=== PATIENT | female | born 1950 | race Caucasian/White ===

== ENCOUNTER 2016-06-04 07:52 | Day surgery (SDC) | payer OTHER, BC ==
[~2016-06-04] VITALS: Ht 162.6 cm; Wt 92.5 kg
[~2016-06-04 07:52] MED LIST: AMIO200T4 PO; ASPI81TA85 PO; CALC667C PO; GLIP-197 PO; METO1TAB54 PO; METO25TA3 PO; MIDO5TAB PO; MULT-190 PO; MULT-506 PO; WARF1TAB PO; WARF5TAB90 PO
--- NOTE | 2016-06-04 08:00 | History and Physical ---
History & Physical Date of Service Jun 04, 2016. History & Physical CC: End Stage renal disease with functioning fistula HPI: Mrs. Ramos she is a 68-fic[age]-rbe female with end-stage renal disease on dialysis who had a permanent left wrist av fistula done in April. It is functioning well at this time. She does have a history of heart disease. She is on dialysis with a_ right upper extremity PermCath. ALLERGIES: None known. MEDICATIONS: None known. MEDICATIONS: Reviewed, see med rec. PAST MEDICAL HISTORY: 1. Positive for coronary artery disease 2. End-stage renal disease. FAMILY HISTORY: Noncontributory. SOCIAL HISTORY: She does not smoke. She does not drink. REVIEW OF SYSTEMS: Ten systems were reviewed and no significant pertinent positive findings were elicited. PHYSICAL EXAMINATION: The patient is awake, oriented x3. She is morbidly obese. Blood pressure 132/84 on the left, 136/80 on the right. Head and neck within normal limits. No carotid bruits. Lungs are clear. Heart, regular rhythm. Abdominal exam is benign. Vascular exam reveals radials and carotids to be +2 bilaterally. Femorals are +2. Upper and lower extremities shows no evidence of acute ischemic changes. Examination of upper extremity venous system shows that there is cephalic vein seen in both arms with a thrill present IMPRESSION: End-stage renal disease. Functioning left wrist av fistula PLAN: Patient is admitted for removal of her permcath. I have discussed the risks options and benefits of the procedure with the patient. The patient understands the risks options and benefits and agrees to the procedure.
[2016-06-04 08:18] VITALS: BP 142/68; PULSE 80; TEMP 36.5; O2SAT 96; Ht 162.6 cm; Wt 92.5 kg
[2016-06-04] MEDS ORDERED: CMD4 PO (08:41)
[2016-06-04] MEDS ORDERED: CMD4 (08:41)
[2016-06-04] MEDS ORDERED: CHOL1000 PO (08:41)
[2016-06-04] MEDS ORDERED: ATOR10TA88 PO (08:41)
[2016-06-04] MEDS ORDERED: FERR1TAB68 PO (08:41)
[2016-06-04 08:48] LABS: INR 1.5 (0.9-1.1); PARTIAL THROMBOPLASTIN RATIO 1.1; PROTHROMBIN TIME (PATIENT) 16.3 SECONDS (9.0-12.0)
[2016-06-04] MEDS ORDERED: LIDOCAINE HCL 1% 20 ML VIAL ONE (09:35)
--- NOTE | 2016-06-04 09:58 | [facility] Post Operative Brief Note ---
Immediate Operative Summary Operative Date Jun 04, 2016. Pre-Operative Diagnosis Functioning Fistula Post-Operative Diagnosis Same Procedure(s) Performed Perm Cath Removal Surgeon Sawyer Skate Boarder Surgeon(s) Kaye Estimated Blood Loss 2 Findings catheter and cuff removed Specimens a; Perm Cath Anesthesia Local Complication(s) None Disposition
--- NOTE | 2016-06-04 10:03 | Discharge Instructions ---
Discharge Instructions Date of Service Jun 04, 2016. Visit Reason for Visit: End Stage Renal Disease Discharge Discharge Diagnosis / Problem: Functioning fistula Discharge Goals Goal(s): Therapeutic intervention Activity Recommendations Activity Limitations: per Instructions/Follow-up section Anesthesia . Post Anesthesia Instructions: If you have had General Anesthesia or IV Sedation: * Do not drive today. * Resume driving when surgeon permits. * Do not make important decisions or sign legal documents today. * Call surgeon for: 1. Temperature elevations greater than 101 degrees F. 2. Uncontrollable pain. 3. Excessive bleeding. 4. Persistent nausea and vomiting. 5. Medication intolerance (nausea, vomiting or rash). * For nausea and vomiting use only clear liquids such as: tea, soda, bouillon until nausea subsides, then gradually increase diet as tolerated. * If you have any concerns or questions, call your surgeon's office. If physician is unavailable and it is an emergency, call 911 or go to the nearest emergency room. . Instructions / Follow-Up Instructions / Follow-Up Call [phone] with any questions or concerns. SPECIAL CARE INSTRUCTIONS: Medications: * Continue to take your medications as directed. If you have been given a prescription for Plavix, please fill it immediately and take as directed. Incision Care: * Your puncture site may have some bruising and minor swelling for about one week. * You will have a small dressing covering your puncture site. You may remove the dressing after 24 hours and shower. You may let the warm soapy water run over it, but be sure to dry the puncture site well and keep it dry. * DO NOT IMMERSE THE INCISION IN A TUB/POOL/etc. UNTIL HEALED. * Puncture sites should be kept covered with a band-aid until it begins to heal. Restrictions: * Depending on whether you leg or arm was punctured to access the arteries, you will be required to lay flat, hold your arm still, or both, for about 4 hours after the procedure to prevent bleeding. * Limit your activity for the first 48 hours. You may walk and go up and down steps. Avoid excessive bending or movement at the puncture site. Possible Complications: * Excessive Swelling - after blood flow is improved you may notice increased swelling in the lower legs. This is a normal response. This usually depends on the amount of blockages in the leg, how long they have been there prior to your procedure and how much blood flow was restored. Elevating your legs will help to improve this. Please notify our office ([phone] ) if the swelling does not go away after lying in bed overnight. * Infection/Drainage/Bleeding - Drainage or bleeding from the puncture site should be minimal. If you have excessive bleeding or drainage, call our office ([phone]) right away. * Pain - You may experience some mild pain or soreness at your puncture site. If your pain does not improve, please contact our office ([phone]). Call your doctor and seek emergent treatment if you develop: * Temperature above 101 degrees * Any fever or chills * Any redness or purulent drainage from the puncture site * Any new dusky/blue colored toes or feet with coolness or sharp or aching pain. SKIN IRRITATION: * You may experience some redness and/or swelling in the area where radiation was administered. If any skin irritation occurs, please contact your family physician. FOLLOW UP VISIT: Keep any scheduled doctor appointments. Diet Recommendations Recommended Home Diet: resume previous diet Procedures Procedures Performed: Perm Cath Removal Pending Studies Studies pending at discharge: no Medical Emergencies . Who to Call and When: Medical Emergencies: If at any time you feel your situation is an emergency, please call 911 immediately. . Non-Emergent Contact Non-Emergency issues call your: Surgeon . . "Provider Documentation" section prepared by Fly Jacques.
[2016-06-04 10:08] VITALS: BP 123/71; PULSE 84; TEMP 36.7; O2SAT 96
[2016-06-04 10:36] VITALS: BP 116/61; PULSE 80; TEMP 36.6; O2SAT 95
--- NOTE | 2016-06-04 10:39 | DIAGNOSTIC IMAGING REPORT ---
DATE OF PROCEDURE: 06/04/2016 PREOPERATIVE DIAGNOSIS: Status post tunneled dialysis catheter placement. POSTOPERATIVE DIAGNOSIS: Same. PROCEDURE PERFORMED: Removal of right chest wall tunneled dialysis catheter. SURGEON: Fly Jacques MD HYDRO PNEUMATIC TESTER: Bridger Restrepo MD ANESTHESIA: Local anesthesia only. ESTIMATED BLOOD LOSS: 2 mL. INDICATIONS FOR PROCEDURE: This is a 66-year-old female with end-stage renal disease on dialysis. She recently underwent placement of a left arm AV fistula which is functioning well. Her catheter was able to be removed. She understood the risks, benefits, alternatives and agreed to proceed. DESCRIPTION OF PROCEDURE: The patient was brought to the endovascular suite and placed in the supine position. The right and chest was prepped and draped in normal sterile fashion. A timeout was performed and all parties agreed to correct patient and procedure to be performed. Approximately 10 mL of local anesthetic was used to numb the tract. The catheter was grasped gently and pulled. It slid out quite easily. Pressure was held on the IJ insertion site as well as the catheter removal site. Hemostasis was achieved. The patient was transferred to recovery room in satisfactory condition. I, Dr. Jacques was present and scrubed for the entire procedure. [facility]
== END 2016-06-04 10:36 | disposition home or self-care (01) ==
LOC: C.ACU 07:52
PROVIDERS: ATTEND Surgery Vascular Surgery
DX: Z45.2 Encounter for adjustment and management of vascular access device (principal); N18.6 End stage renal disease; Z99.2 Dependence on renal dialysis; I25.10 Atherosclerotic heart disease of native coronary artery without angina pectoris; E66.01 Morbid (severe) obesity due to excess calories

== ENCOUNTER 2017-04-23 10:16 | Inpatient (IN) | payer OTHER, BC ==
[~2017-04-23] VITALS: Ht 162.6 cm; Wt 118.3 kg
[2017-04-23] VITALS (21 sets, daily range): BP systolic 81–112; BP diastolic 58–75; PULSE 65–139; TEMP 36.6–37.3; O2SAT 91–100; Ht 162.6 cm; Wt 118.3 kg
[~2017-04-23 10:16] MED LIST changes: +ATOR10TA82 PO; +CHOL1000 PO; +CMD4; +CMD4 PO; +FERR1TAB68 PO; -METO25TA3 PO
[2017-04-23] MEDS ORDERED: DILTIAZEM HCL 5 MG/ML 5 ML VIAL IV STA (10:29)
--- NOTE | 2017-04-23 10:47 | EMERGENCY ROOM VISIT NOTE ---
History Report prepared by Ilia: Angle Nova Under the Supervision of: Dr. Camille Nair M.D. 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 The patient receives dialysis //Sat. She went to dialysis this morning and was found to be tachycardic and hypotensive. She was sent to the ED by ambulance for further evaluation. She reports that she started feeling unwell 3 days ago. Pt notes dizziness and nausea. She was 84% on room air upon arrival in the department but denies feeling short of breath. Pt denies fevers and chills. She has been taking her medications as prescribed. Pt has swelling to both lower extremities which she states is chronic. She used to follow-up with the wound care clinic but states that she cannot remember the last time that she was seen there. Source of History: patient Onset: PRE ASSEMBLY WIRER Position: other (global) Quality: other (tachycardic) Timing: constant Associated Symptoms: + nausea, No fevers, No chills, No SOB Note: Pt notes dizziness and swelling to the LE. Review of Systems See HPI for pertinent positives & negatives. A total of 10 systems reviewed and were otherwise negative. Past Medical & Surgical Medical Problems: (1) Atrial flutter by electrocardiogram (2) Diabetic foot ulcer (3) Dialysis patient (4) DM2 (diabetes mellitus, type 2) (5) ESRD (end stage renal disease) (6) HTN (hypertension) (7) Hypotension (8) LIA (iron deficiency anemia) (9) Influenza A (10) CHASITY (obstructive sleep apnea) (11) Renal failure (12) Sepsis (13) Tachycardia (14) UTI (urinary tract infection) Surgical Problems: (1) History of cataract surgery Family History Diabetes mellitus Social History Smoking Status: Never Smoker Drug Use: none Marital Status: Housing Status: fpc Occupation Status: retired Current/Historical Medications Scheduled Amiodarone Hcl (Cordarone), 200 MG PO QAM Aspirin (Aspirin Dr), 81 MG PO QAM Atorvastatin (Lipitor), 10 MG PO HS Calcium Acetate (Phosphate Bin (Phoslo 667 Mg), 1 CAP PO TIDM Cholecalciferol (Vitamin D3), 1,000 UNITS PO DAILY Ferric Citrate (Auryxia), 210 MG PO BID Gabapentin (Gabapentin), 100 MG PO TID Glipizide (Glipizide Er), 5 MG PO DAILY Metoclopramide Hcl (Reglan), 5 MG PO UD Midodrine Hcl (Midodrine Hcl), 20 MG PO UD Multiple Vitamins W/ Minerals (Ocuvite Lutein), 1 CAP PO DAILY Vitamin B Cmplx/Vitc/Folic Ac (Nephrocaps), 1 CAP PO DAILY Warfarin Sod (Coumadin), 4 MG PO DAILY Scheduled PRN Senna/Docusate Sod (Senokot S), 1 TAB PO BID PRN for Constipation Allergies Coded Allergies: No Known Allergies (Unverified , 04/23/17) Physical Exam Vital Signs Date Time Temp Pulse Resp B/P (MAP) Pulse Ox O2 Delivery O2 Flow Rate FiO2 04/23/17 12:10 131 16 94/72 04/23/17 12:09 94 Room Air 04/23/17 12:05 130 16 82/67 98 Room Air 04/23/17 11:33 135 04/23/17 11:32 152 16 92/73 94 Room Air 04/23/17 10:28 15 04/23/17 10:17 37.1 156 20 106/85 95 Room Air Physical Exam Vital signs reviewed. General: Chronically ill-appearing 66 year old female, in no significant distress. HEENT: No scleral icterus, PERRLA, neck supple. Atraumatic. Cardiovascular: Tachycardic rate and regular rhythm, no extra sounds. Pulmonary: Clear to auscultation bilaterally, normal work of breathing. Abdomen: Soft, obese, nontender, nondistended, positive bowel sounds. Musculoskeletal: Lymphedema to the bilateral lower extremities right greater than left. She has a 7x9 cm ulcerating lesion to the left heel with eschar with no surrounding cellulitic change. She has venous stasis changes to bilateral lower extremities with flaky dry and calloused skin. Neurologic: Patient awake alert and oriented x 3, full strength in all 4 extremities. Cranial nerves 2 through 12 grossly intact. Skin: Warm, dry, no rash Medical Decision & Procedures ER Provider Diagnostic Interpretation: Radiology results as stated below per my review and radiologist interpretation: CHEST ONE VIEW PORTABLE CLINICAL HISTORY: 66 years-old Female presenting with rapid atrial flutter. TECHNIQUE: Portable upright AP view of the chest was obtained. COMPARISON: 10/01/2015. FINDINGS: Interval removal of the double lumen dialysis catheter. Persistent prominence of the aortic contour. Double density in the retrocardiac region. Cardiac silhouette remains mildly enlarged. Prominence of pulmonary vasculature. Minimal linear opacity at the left lung base. No other focal opacity. No pleural effusion or pneumothorax. Osseous structures normal. Upper abdomen normal. IMPRESSION: 1. Mild cardiomegaly volume overload. No filiberto pulmonary edema. 2. Double density in the retrocardiac region suggests left atrial enlargement. Electronically signed by: Alfredo Morfin M.D. 04/23/2017 10:54 AM Dictated Date/Time: 04/23/2017 10:52 AM Laboratory Results Test 04/23/17 11:11 04/23/17 11:15 04/23/17 11:21 04/23/17 11:27 Influenza Type A Antigen POS for Influ A (NEG) Influenza Type B Antigen Neg for Influ B (NEG) Immature Granulocyte % (Auto) 0.5 % White Blood Count 11.12 K/uL (4.8-10.8) Red Blood Count 3.34 M/uL (4.2-5.4) Hemoglobin 11.0 g/dL (12.0-16.0) Hematocrit 35.8 % (37-47) Mean Corpuscular Volume 107.2 fL (80-100) Mean Corpuscular Hemoglobin 32.9 pg (25-34) Mean Corpuscular Hemoglobin Concent 30.7 g/dl (32-36) Platelet Count 218 K/uL (130-400) Mean Platelet Volume 9.5 fL (7.4-10.4) Neutrophils (%) (Auto) 78.6 % Lymphocytes (%) (Auto) 5.6 % Monocytes (%) (Auto) 14.7 % Eosinophils (%) (Auto) 0.4 % Basophils (%) (Auto) 0.2 % Neutrophils # (Auto) 8.74 K/uL (1.4-6.5) Lymphocytes # (Auto) 0.62 K/uL (1.2-3.4) Monocytes # (Auto) 1.64 K/uL (0.11-0.59) Eosinophils # (Auto) 0.04 K/uL (0-0.5) Basophils # (Auto) 0.02 K/uL (0-0.2) Immature Granulocyte # (Auto) 0.06 K/uL (0.00-0.02) Direct Bilirubin 0.1 mg/dl (0-0.2) Total Creatine Kinase 163 U/L (26-192) Creatine Kinase MB 2.2 ng/ml (0.5-3.6) Creatine Kinase MB Ratio 1.3 (0-3.0) Thyroid Stimulating Hormone (TSH) 1.890 uIu/ml (0.300-4.500) Bedside Lactic Acid Venous 1.47 mmol/L (0.90-1.70) Bedside Hemoglobin 11.2 g/dl (12.0-16.0) Bedside Hematocrit 33 % (37-47) Bedside Sodium 136 mEq/L (135-144) Bedside Potassium 4.7 mEq/L (3.3-5.0) Bedside Chloride 96 mEq/L (101-112) Bedside Total CO2 39 mEq/l (24-31) Bedside Blood Urea Nitrogen 36 mg/dl (7-18) Bedside Creatinine 7.1 mg/dl (0.6-1.3) Bedside Glucose (other) 121 mg/dl (70-99) Bedside Ionized Calcium (Jaswant) 1.09 mmol/l (1.12-1.32) Bedside Troponin I < 0.030 ng/ml (0-0.045) Laboratory results per my review. Medications Administered Medications (Trade) Dose Ordered Sig/Jed Route Start Time Stop Time Status Last Admin Dose Admin Diltiazem HCl (Cardizem Inj) 20 mg NOW STAT IV 04/23/17 10:29 04/23/17 10:32 DC 04/23/17 10:29 10 MG ECG Indication: tachycardia Rate (beats per minute): 153 Rhythm: sinus tachycardia (wide complex) Findings: RBBB, no ectopy, other (poor quality baseline; repolarization abnormality; no acute STEMI) Change: Patient's electrocardiogram interpreted by me. ED Course 1019: Past medical records reviewed. The patient was evaluated in room B11B. A complete history and physical examination was performed. 1029: Cardizem 20 mg IV 1109: Upon reevaluation the patient is doing well. 1158: I reassessed the patient at this time. I gave her the Cardizem and her HR seems to be improving. Her BP is fine and I stopped fluids. I discussed the results and treatment plan with the patient. I answered all pertaining questions that she had. She expressed understanding and verbalized agreement. 1234: I spoke with Dr. Quintana. We discussed the patient's case. The patient will be evaluated by the [facility] for further management. 1239: Cardizem Bolus/drip IV Medical Decision Differential diagnosis: Etiologies such as sepsis, UTI, pneumonia, metabolic, electrolyte abnormalities , cardiac sources, intracerebral event, toxicologic, neurologic, as well as others were entertained. This pt was evaluated and appeared to be in no distress. Pt is found to be tachycardic with RBBB, likely rapid atrial flutter. IV access was obtained and lab work was drawn. Pt was placed on the manager monitoring. She was given IV cardizem, hydrated with NSS for periodic hypotension. Lab work reveals a mild anemia and slight leukocytosis. Chem panel is unrevealing in the setting of ESRD on HD. CXR reveals mild volume overload, although no HD was performed today. Pt HR was not well controlled after the above medications. There was only transient improvement. INR is pending. Pt required Carizem drip. Consultation with the [facility] hospitalist service was placed. Pt is aware of the plan for admission and further management. Medication Reconcilliation Current Medication List: was personally reviewed by me Blood Pressure Screening Patient's blood pressure: Low blood pressure Consults Time Called: 1229 Consulting Physician: Dr. Quintana Returned Call: [address] Quintana. We discussed the patient's case. The patient will be evaluated by the [facility]ist Group for further management. Impression Primary Impression: Atrial flutter with rapid ventricular response Additional Impressions: Influenza A Pressure ulcer of heel Pressure ulcer of buttock Critical Care I have personally spent greater than 30 minutes of critical care time in the direct management of this patient. This includes bedside care, interpretation of diagnostic studies, and testing, discussion with consultants, patient, and family members, and other required patient management activities. This 30 minutes is in excess of all separately billable procedures. Scribe Attestation The scribe's documentation has been prepared under my direction and personally reviewed by me in its entirety. I confirm that the note above accurately reflects all work, treatment, procedures, and medical decision making performed by me. Departure Information Dispostion Being Evaluated By Hospitalist Referrals Rashid Claudio MD (PCP) Patient Instructions [facility] Problem Qualifiers
--- NOTE | 2017-04-23 10:55 | DIAGNOSTIC IMAGING REPORT ---
CHEST ONE VIEW PORTABLE CLINICAL HISTORY: 66 years-old Female presenting with rapid atrial flutter. TECHNIQUE: Portable upright AP view of the chest was obtained. COMPARISON: 10/01/2015. FINDINGS: Interval removal of the double lumen dialysis catheter. Persistent prominence of the aortic contour. Double density in the retrocardiac region. Cardiac silhouette remains mildly enlarged. Prominence of pulmonary vasculature. Minimal linear opacity at the left lung base. No other focal opacity. No pleural effusion or pneumothorax. Osseous structures normal. Upper abdomen normal. IMPRESSION: 1. Mild cardiomegaly volume overload. No filiberto pulmonary edema. 2. Double density in the retrocardiac region suggests left atrial enlargement. Electronically signed by: Alfredo Morfin M.D. 04/23/2017 10:54 AM Dictated Date/Time: 04/23/2017 10:52 AM
[2017-04-23] MEDS ORDERED: MULTCAP31 PO (11:37)
[2017-04-23] MEDS ORDERED: SENN-65 PO (11:37)
[2017-04-23] MEDS ORDERED: METO1TAB54 PO (11:37)
[2017-04-23] MEDS ORDERED: NRN100 PO (11:37)
[2017-04-23] MEDS ORDERED: MIDO10TA PO (11:37)
[2017-04-23] MEDS ORDERED: B-CO1CAP17 PO (11:37)
[2017-04-23 11:40] LABS: BASO % 0.2 %; BASO ABS # 0.02 K/uL (0-0.2); EOS % 0.4 %; EOS ABS # 0.04 K/uL (0-0.5); HEMATOCRIT 35.8 % (37-47); IG# 0.06 K/uL (0.00-0.02); LYMPH % 5.6 %; LYMPH ABS # 0.62 K/uL (1.2-3.4); MEAN CELL VOLUME 107.2 fL (80-100); MEAN CORPUSCULAR HEMOGLOBIN 32.9 pg (25-34); MEAN CORPUSCULAR HGB CONC 30.7 g/dl (32-36); MEAN PLATELET VOLUME 9.5 fL (7.4-10.4); MONO % 14.7 %; MONO ABS # 1.64 K/uL (0.11-0.59); NEUT % 78.6 %; NEUT ABS # 8.74 K/uL (1.4-6.5); PLATELET COUNT 218 K/uL (130-400); RED CELL DISTRIBUTION WIDTH CV 16.8 % (11.5-14.5); RED CELL DISTRIBUTION WIDTH SD 65.5 fL (36.4-46.3); WHITE BLOOD COUNT 11.12 K/uL (4.8-10.8)
[2017-04-23 12:13] LABS: ALBUMIN 2.9 gm/dl (3.4-5.0); CALCIUM 8.9 mg/dl (8.5-10.1); CKMB 2.2 ng/ml (0.5-3.6); CREATININE 6.98 mg/dl (0.60-1.20); POTASSIUM 4.5 mmol/L (3.5-5.1); TOTAL PROTEIN 7.2 gm/dl (6.4-8.2)
[2017-04-23] MEDS ORDERED: DILTIAZEM BOLUS / DRIP IV STA (12:39)
[2017-04-23] MEDS ORDERED: ACETAMINOPHEN 325 MG TAB PO PRN (12:45)
[2017-04-23] MEDS ORDERED: PHARMACY GLYCEMIC MGMT CONSULT PRN (12:55)
[2017-04-23 12:58] LABS: INFLUENZA B ANTIGEN Neg for Influ B (NEG)
[2017-04-23] MEDS ORDERED: GLUCOSE 10 TABS/TUBE PO PRN (13:00)
[2017-04-23] MEDS ORDERED: DEXTROSE 50% 50 ML SYR IV PRN (13:00)
[2017-04-23] MEDS ORDERED: GLUCAGON FOR INJ 1 MG VIAL SQ PRN (13:00)
[2017-04-23] MEDS ORDERED: GLUCOSE 40% GEL 15 GM TUBE PO PRN (13:00)
[2017-04-23] MEDS ORDERED: DILTIAZEM HCL INJ 125 MG in DEXTROSE 5% 100ML IV PRN (13:00)
[2017-04-23 13:29] LABS: INR 1.7 (0.9-1.1); PTT PATIENT 39.9 SECONDS (21.0-31.0)
--- NOTE | 2017-04-23 13:45 | Pharmacy Progress Note ---
Glycemic Control Intl Consult Date of Service Apr 23, 2017. Scope Glycemic Pharmacist consulted by Dr Quintana on 04/23/17 for glycemic control and to write orders per [facility] inpatient glycemic control protocol Objective Weight (Kilograms): 123.200 Accuchecks BSG (last 24hrs): Test 04/23/17 11:15 Random Glucose 116 mg/dl (70-99) Laboratory Data (last 24hrs) Test 04/23/17 11:15 Anion Gap 9.0 mmol/L BUN/Creatinine Ratio 5.5 Blood Urea Nitrogen 38 mg/dl Creatinine 6.98 mg/dl Potassium Level 4.5 mmol/L Sodium Level 136 mmol/L White Blood Count 11.12 K/uL Red Blood Count 3.34 M/uL Hemoglobin 11.0 g/dL Hematocrit 35.8 % Mean Corpuscular Volume 107.2 fL Mean Corpuscular Hemoglobin 32.9 pg Mean Corpuscular Hemoglobin Concent 30.7 g/dl Platelet Count 218 K/uL Mean Platelet Volume 9.5 fL Neutrophils (%) (Auto) 78.6 % Lymphocytes (%) (Auto) 5.6 % Monocytes (%) (Auto) 14.7 % Eosinophils (%) (Auto) 0.4 % Basophils (%) (Auto) 0.2 % Neutrophils # (Auto) 8.74 K/uL Lymphocytes # (Auto) 0.62 K/uL Monocytes # (Auto) 1.64 K/uL Eosinophils # (Auto) 0.04 K/uL Basophils # (Auto) 0.02 K/uL Recent Pertinent Medications Outpatient Anti-diabetic Regimen: * Glipizide ER 5 mg PO daily Risk Factors for Insulin Resistance: * Infection: Tamiflu and Empiric Vanco + Zosyn * IVF: Diltiazem and amiodarone infusion * Diet: T2DM, renal, AHA Assessment & Plan ASSESSMENT: * 66 yr old T2DM female admitted with chest pain, tachycardia, and non- productive cough x 3 days. PMH significant for HTN, ESRD on HD, A. fib. * Pt is maintained on oral antidiabetic agents as an outpatient with unknown glycemic control. Will hold oral agents for admission and utilize SQ basal bolus insulin regimen which is the recommended regimen for inpatient glycemic control. * Will initiate weight based insulin dosing for insulin adelia patient and titrate based on BSG trends. PLAN FOR INPATIENT GLYCEMIC CONTROL: * Holding outpatient oral diabetes medications * Basal insulin * LANTUS 0-10 units SQ HS * 10 units if BSG is > 180 mg/dL * Bolus Insulin * NOVOLOG per scale ACHS or Q6hrs while NPO * Goal Range: Low 120 mg/dL - High 160 mg/dL * Correction Factor: 25 mg/dL/unit * Nutritional / Prandial insulin per carb ratio of 1 unit per 8 grams CHO consumed * A1c ordered for 04/24/17 * Please note that the plan above was derived based on current level of insulin resistance and hospital stress. These recommendations are appropriate for inpatient admission only. Plan of care upon discharge will need to be reassessed to avoid potential outpatient hypo/hyperglycemia. Thank you.
[2017-04-23] MEDS ORDERED: AMIODARONE IV BOLUS / DRIP IV STA (13:48)
[2017-04-23] MEDS ORDERED: PIPERACILLIN/TAZOBACTAM 3.375 GM/100ML D5W IV STA (13:50)
[2017-04-23] MEDS ORDERED: VANCOMYCIN INJ 1,000 MG in SODIUM CHLORIDE 0.9% 250ML 250 ML IV STA (13:50)
[2017-04-23] MEDS ORDERED: HEPARIN SOD 5000 UNIT/0.5 ML CARP SQ SCH (14:00)
[2017-04-23] MEDS ORDERED: VANCOMYCIN CONSULT ACTIVE PRN (14:00)
[2017-04-23] MEDS ORDERED: DOCUSATE SODIUM/SENNA 50/8.6MG TAB PO PRN (14:00)
--- NOTE | 2017-04-23 14:11 | Progress Note ---
Progress Note Date of Service Apr 23, 2017. Progress Note ATTENDING ADDENDUM : pt seen and examined , care co -ordinated with Renate Fernandez PA-C labs and images reviewed 66 yo F with hx of paroxysmal Afib on Coumadin , ESRD on HD follows with Nephrology Dr Vera at [facility] , Type 2 DM and other medical issues as outlined in H&P sent form her Dialysis center today , as found to be in rapid afib/Flutter pt is a very poor historian pt mentions she has been feeling poorly since last Saturday. had cough , nausea , poor appetite her has similar symptoms as well had dizzy spell , no SOB or chest heaviness in ER pt was found in Aflutter with HR in 130's , given IV Cardizem bolus followed by gtt , with no improvement of rate P/E: gen : no apparent distress HEENT : sclera non icteric HT: irregular Lungs: diminished , no rales or wheeze Abdomen : soft Ext : LEFT HEEL : FOUL SMELLING LARGE ULCER 8x10 cm with black necrotic edge multiple pressure ulcer on right posterior thigh , buttock area Neuro: no focal deficit A/P: RAPID AFIB/AFLUTTER : possible caused by + Influenza /multiple infected ulcers /wounds on chronic amiodarone 200 mg daily and Coumadin pt says she took her AM dose today follows with [facility] Dr Mariee for Hx of Paroxysmal Afib D/w cardiology -pt will be started on IV heparin bridge for sub therapeutic INR 1.7 /IV Amiodarone gtt cont Coumadin admit to tele serial troponin , resting ECHO INFLUENZA A POSITIVE: contact isolation Tamiflu ordered /dose adjusted to renal clearance ESRD ON HD : did not had HD today due to Aflutter /afib vol status and electrolytes stable monitor Nephrology consulted -will be resumed schedule HD tomorrow INFECTED ULCER ON LEFT HEEL -mentions of having the ulcer for > 2 weeks , did not had any wound care ordered for wound culture , gram stain empiric Abx with Zosyn /Vancomycin ID consult requested pt will need home health visiting nurse -had not had any service PRESSURE ULCERS : wound care consulted TYPE 2 DM : poorly controlled , last hb A1c > 10 insulin [facility] for glycemic management FULL CODE DVT PROPHYLAXIS IV heparin /Coumaidn DISPOSITION : lives at home with very poor functional status -PT/OT eval does not have any service for wound care -social service consulted -will need home health visiting nurse updated at bedside please refer to further documentation of Tata Jackson PA-C for discussion of other issues Juanita Quintana MD
[2017-04-23] MEDS ORDERED: PIPERACILL/TAZOBAC CONSULT ACTIVE PRN (14:15)
--- NOTE | 2017-04-23 14:26 | History and Physical ---
History & Physical Date & Time of Service: Apr 23, 2017 at 13:29 Chief Complaint: Chest Pain Primary Care Physician: Rashid Claudio MD History of Present Illness Source: patient, clinic records, hospital records Pt is 66 y/o F with PMH ESRD on HD, DM II, paroxysmal a-fib on amiodarone and warfarin, hx RBBB presented to ER from dialysis center with c/o tachycardia. Pt states 3 days ago started with non-productive cough, some nausea, mild dizziness. She states has been eating and drinking well. Makes little urine, denies any hematuria, dysuria. Denies CP, SOB, syncope, palpitations. She went to dialysis center today in [place] and was found to have tachycardia and was sent to ER. Reports chronic LE edema and denies any worsening or increased erythema of legs. States past 2 weeks noted ulcer to left heel. States had ulcer in past which seemed to heal. Pt admits is to wear a boot at night but she often takes it off and rubs her heel on the bed and pt admits to doing this recently which she believes is cause of recurrent ulcer. Denies noted drainage from area or surrounding erythema. Pt uses wheelchair and very limited walker. Denies known fever/chills, diaphoresis, V/D/C, LARIOS, neck pain, orthopnea, hemoptysis, sore throat, choking, otalgia, rhinorrhea, abdominal pain, Science Education Professor Dr Helton - [place] Assistant Grocery - Dr Luisa Sue. Hasn't seen for close to a year. Pediatric Neuropsychologist: Dr Mariee reports had influenza vaccine 11/2016. Her started with cough yesterday. In ER pt found to be in aflutter 153. She was given cardizem 20mg with rates still in 130's. BP's 106/85 - 94/72 - 110/76. WBC: 11, Hgb: 11 (~10.5 baseline) . POC: lactic acid: 1.4. TSH: 1.8. +influenza swab. CXR: mild overload Past Medical/Surgical History Medical Problems: (1) Dialysis patient Status: Chronic (2) DM2 (diabetes mellitus, type 2) Status: Chronic (3) HTN (hypertension) Status: Chronic (4) LIA (iron deficiency anemia) Status: Chronic (5) CHASITY (obstructive sleep apnea) Status: Chronic (6) Renal failure Status: Chronic (7) UTI (urinary tract infection) Status: Resolved Surgical Problems: (1) History of cataract surgery Status: Chronic Family History Diabetes mellitus FH: pancreatic cancer Social History Smoking Status: Never Smoker Smokeless Tobacco Use: No Alcohol Use: none Drug Use: none Marital Status: Housing status: lives with significant other Occupational Status: retired Multi-Drug Resistant Organisms History of MDRO: Yes Type of MDRO: MRSA Allergies Coded Allergies: No Known Allergies (Unverified , 04/23/17) Home Medications Scheduled Amiodarone Hcl (Cordarone), 200 MG PO QAM Aspirin (Aspirin Dr), 81 MG PO QAM Atorvastatin (Lipitor), 10 MG PO HS Calcium Acetate (Phosphate Bin (Phoslo 667 Mg), 1 CAP PO TIDM Cholecalciferol (Vitamin D3), 1,000 UNITS PO DAILY Ferric Citrate (Auryxia), 210 MG PO BID Gabapentin (Gabapentin), 100 MG PO TID Glipizide (Glipizide Er), 5 MG PO DAILY Metoclopramide Hcl (Reglan), 5 MG PO UD Midodrine Hcl (Midodrine Hcl), 20 MG PO UD Multiple Vitamins W/ Minerals (Ocuvite Lutein), 1 CAP PO DAILY Vitamin B Cmplx/Vitc/Folic Ac (Nephrocaps), 1 CAP PO DAILY Warfarin Sod (Coumadin), 4 MG PO DAILY Scheduled PRN Senna/Docusate Sod (Senokot S), 1 TAB PO BID PRN for Constipation Review of Systems Constitutional: No weight loss Eyes: No eye pain, No redness ENT: No trouble swallowing Respiratory: + problem reported (see HPI) Cardiovascular: + problem reported (see HPI) Abdomen: + GI bleeding, + problem reported (see HPI) Musculoskeletal: No calf pain Genitourinary - Female: No dysuria, No urinary frequency, No urinary urgency, No hematuria Neurologic: + balance problems, No numbness/tingling, No vertigo Endocrine: No fatigue, No excessive thirst Hematologic / Lymphatic: No abnormal bleeding/bruising, No clotting problems, No night sweats Integumentary: + problem reported (see HPI) Physical Exam Vital Signs Date Time Temp Pulse Resp B/P (MAP) Pulse Ox O2 Delivery O2 Flow Rate FiO2 04/23/17 13:12 140 20 110/76 97 Room Air 04/23/17 13:00 141 16 87/63 97 Room Air 04/23/17 12:10 131 16 94/72 04/23/17 12:09 94 Room Air 04/23/17 12:05 130 16 82/67 98 Room Air 04/23/17 11:33 135 04/23/17 11:32 152 16 92/73 94 Room Air 04/23/17 10:28 15 04/23/17 10:17 37.1 156 20 106/85 95 Room Air General Appearance: no apparent distress, + obese Head: normocephalic, atraumatic Eyes: normal inspection, PERRL, EOMI, sclerae normal ENT: hearing grossly normal, pharynx normal, + pertinent finding (mucous membranes moist) Neck: supple, no JVD, trachea midline Respiratory/Chest: chest non-tender, no respiratory distress, no accessory muscle use, + decreased breath sounds (bases bilaterally) Cardiovascular: + tachycardia (irregular) Abdomen/GI: normal bowel sounds, non tender, soft Extremities/Musculoskelatal: + pertinent finding (bilateral LE edema with very dry skin, mild erythema, Ext non-tender to palpation, Left calcaneous with ulcer with eschar on wound edges with foul odor, no filiberto discharge noted, some mild surrounding erythema) Neurologic/Psych: alert, normal mood/affect, oriented x 3 Skin: + pertinent finding (diffuse dry skin) Diagnostics Laboratory Results Results Past 24 Hours Test 04/23/17 11:11 04/23/17 11:15 04/23/17 11:21 04/23/17 12:03 Range/Units Influenza Type A Antigen POS for Influ A NEG Influenza Type B Antigen Neg for Influ B NEG White Blood Count 11.12 4.8-10.8 K/uL Red Blood Count 3.34 4.2-5.4 M/uL Hemoglobin 11.0 12.0-16.0 g/dL Hematocrit 35.8 37-47 % Mean Corpuscular Volume 107.2 80-100 fL Mean Corpuscular Hemoglobin 32.9 25-34 pg Mean Corpuscular Hemoglobin Concent 30.7 32-36 g/dl Platelet Count 218 130-400 K/uL Mean Platelet Volume 9.5 7.4-10.4 fL Neutrophils (%) (Auto) 78.6 % Lymphocytes (%) (Auto) 5.6 % Monocytes (%) (Auto) 14.7 % Eosinophils (%) (Auto) 0.4 % Basophils (%) (Auto) 0.2 % Neutrophils # (Auto) 8.74 1.4-6.5 K/uL Lymphocytes # (Auto) 0.62 1.2-3.4 K/uL Monocytes # (Auto) 1.64 0.11-0.59 K/uL Eosinophils # (Auto) 0.04 0-0.5 K/uL Basophils # (Auto) 0.02 0-0.2 K/uL RDW Standard Deviation 65.5 36.4-46.3 fL RDW Coefficient of Variation 16.8 11.5-14.5 % Immature Granulocyte % (Auto) 0.5 % Immature Granulocyte # (Auto) 0.06 0.00-0.02 K/uL Sodium Level 136 136-145 mmol/L Potassium Level 4.5 3.5-5.1 mmol/L Chloride Level 95 98-107 mmol/L Carbon Dioxide Level 32 21-32 mmol/L Anion Gap 9.0 3-11 mmol/L Blood Urea Nitrogen 38 7-18 mg/dl Creatinine 6.98 0.60-1.20 mg/dl Est Creatinine Clear Calc Drug Dose 10.1 ml/min Estimated GFR () 6.4 Estimated GFR (Non- 5.6 BUN/Creatinine Ratio 5.5 10-20 Random Glucose 116 70-99 mg/dl Calcium Level 8.9 8.5-10.1 mg/dl Magnesium Level 2.7 1.8-2.4 mg/dl Total Bilirubin 0.4 0.2-1 mg/dl Direct Bilirubin 0.1 0-0.2 mg/dl Aspartate Amino Transf (AST/SGOT) 55 15-37 U/L Alanine Aminotransferase (ALT/SGPT) 38 12-78 U/L Alkaline Phosphatase 81 45-117 U/L Total Creatine Kinase 163 26-192 U/L Creatine Kinase MB 2.2 0.5-3.6 ng/ml Creatine Kinase MB Ratio 1.3 0-3.0 Total Protein 7.2 6.4-8.2 gm/dl Albumin 2.9 3.4-5.0 gm/dl Thyroid Stimulating Hormone (TSH) 1.890 0.300-4.500 uIu/ml Bedside Lactic Acid Venous 1.47 0.90-1.70 mmol/L Microbiology Results 04/23/17 Blood Culture, Received Pending 04/23/17 Blood Culture, Received Pending Diagnostic Radiology CXR: IMPRESSION: 1. Mild cardiomegaly volume overload. No filiberto pulmonary edema. 2. Double density in the retrocardiac region suggests left atrial enlargement. EKG EKG: appears like rapid atrial flutter, rate 153 Impression Assessment and Plan Rapid Atrial Flutter Pt with hx paroxysmal atrial fibrillation on amiodarone and Coumadin. today rapid a-flutter probable from +influenza. Denies CP, SOB, syncope or palpitations. Pt given Cardizem 20mg IV in ER with continue HR in 130's, soft BP 's. INR:1.7. TSH: 1.8 Echo ordered Trend troponin Continue ASA Continue Coumadin Cardiology consult, recommend amiodarone drip Monitor electrolytes Monitor INR Influenza Cough x 3 days. +rapid influenza swab in ER. Normal POC lactic acid. Sats: 95% on RA. CXR: no infiltrate Tamiflu 30mg on HD days x 5 days Infected Ulcer L Calcaneus, Pressure Ulcers Wound culture ordered. Pending blood cultures Zosyn and Vancomycin Wound and ID consult Monitor CBC ESRD on HD Pt did not receive HD today. Follows with Dr Helton- [place], has HD in [place] on , Sat Oncology consulted, plan on HD tomorrow DM II Hold glipizide. HA1C added. NovoLog sliding scale DYSLIPIDEMIA Continue atorvastatin DVT Prophylaxis Coumadin Disposition admit tele Full Code as per discussion with pt Follows with Dr Rashid Claudio - [facility] for routine care Pt was seen with Dr Quintana. See addendum ATTENDING ADDENDUM : pt seen and examined , care co -ordinated with Renate Fernandez PA-C labs and images reviewed 66 yo F with hx of paroxysmal Afib on Coumadin , ESRD on HD follows with Nephrology Dr Vera at [facility] , Type 2 DM and other medical issues as outlined in H&P sent form her Dialysis center today , as found to be in rapid afib/Flutter pt is a very poor historian pt mentions she has been feeling poorly since last Saturday. had cough , nausea , poor appetite her has similar symptoms as well had dizzy spell , no SOB or chest heaviness in ER pt was found in Aflutter with HR in 130's , given IV Cardizem bolus followed by gtt , with no improvement of rate P/E: gen : no apparent distress HEENT : sclera non icteric HT: irregular Lungs: diminished , no rales or wheeze Abdomen : soft Ext : LEFT HEEL : FOUL SMELLING LARGE ULCER 8x10 cm with black necrotic edge multiple pressure ulcer on right posterior thigh , buttock area Neuro: no focal deficit A/P: RAPID AFIB/AFLUTTER : possible caused by + Influenza /multiple infected ulcers /wounds on chronic amiodarone 200 mg daily and Coumadin pt says she took her AM dose today follows with [facility] Cardiology Dr Mariee for Hx of Paroxysmal Afib D/w cardiology -pt will be started on IV heparin bridge for sub therapeutic INR 1.7 /IV Amiodarone gtt cont Coumadin admit to tele serial troponin , resting ECHO INFLUENZA A POSITIVE: contact isolation Tamiflu ordered /dose adjusted to renal clearance ESRD ON HD : did not had HD today due to Aflutter /afib vol status and electrolytes stable monitor Nephrology consulted -will be resumed schedule HD tomorrow INFECTED ULCER ON LEFT HEEL -mentions of having the ulcer for > 2 weeks , did not had any wound care ordered for wound culture , gram stain empiric Abx with Zosyn /Vancomycin ID consult requested pt will need home health visiting nurse -had not had any service PRESSURE ULCERS : wound care consulted TYPE 2 DM : poorly controlled , last hb A1c > 10 insulin [facility] for glycemic management FULL CODE DVT PROPHYLAXIS IV heparin /Coumaidn DISPOSITION : lives at home with very poor functional status -PT/OT eval does not have any service for wound care -social service consulted -will need home health visiting nurse updated at bedside please refer to further documentation of Tata Jackson PA-C for discussion of other issues Juanita Quintana MD Level of Care Telemetry Advanced Directives Existing Living Will: Yes Existing Power of Hypoid Gear Generator: No Resuscitation Status FULL RESUSCITATION VTE Prophylaxis VTE Risk Assessment Done? Y/N: Yes Risk Level: Moderate Given or contraindicated: Warfarin (Coumadin) Additional Copies To Rashid Claudio MD
[2017-04-23] MEDS ORDERED: PIPERACILL/TAZOBAC IV 3.375 GM in DEXTROSE 5% 100ML IV STA (14:28)
[2017-04-23] MEDS ORDERED: VANCOMYCIN INJ 1,750 MG in SODIUM CHLORIDE 0.9% 500ML 500 ML IV STA (14:30)
--- NOTE | 2017-04-23 14:41 | Pharmacy Progress Note ---
Pharmacy Antibiotic Consult Date of Service: Apr 23, 2017. Pharmacy Dosing Scope Pharmacy is consulted to initiate vancomycin IV dosing therapy, order appropriate labs and adjust drug dose/frequency. Subjective The patient is a 66 year old female admitted on Apr 23, 2017 at 12:40. Objective Height (Feet): 5 Height (Inches): 4.00 Weight (Kilograms): 123.200 Lab Results (24hrs): Test 04/23/17 11:11 04/23/17 11:15 04/23/17 11:21 Influenza Type A Antigen POS for Influ A (NEG) Influenza Type B Antigen Neg for Influ B (NEG) White Blood Count 11.12 K/uL (4.8-10.8) Red Blood Count 3.34 M/uL (4.2-5.4) Hemoglobin 11.0 g/dL (12.0-16.0) Hematocrit 35.8 % (37-47) Mean Corpuscular Volume 107.2 fL (80-100) Mean Corpuscular Hemoglobin 32.9 pg (25-34) Mean Corpuscular Hemoglobin Concent 30.7 g/dl (32-36) Platelet Count 218 K/uL (130-400) Mean Platelet Volume 9.5 fL (7.4-10.4) Neutrophils (%) (Auto) 78.6 % Lymphocytes (%) (Auto) 5.6 % Monocytes (%) (Auto) 14.7 % Eosinophils (%) (Auto) 0.4 % Basophils (%) (Auto) 0.2 % Neutrophils # (Auto) 8.74 K/uL (1.4-6.5) Lymphocytes # (Auto) 0.62 K/uL (1.2-3.4) Monocytes # (Auto) 1.64 K/uL (0.11-0.59) Eosinophils # (Auto) 0.04 K/uL (0-0.5) Basophils # (Auto) 0.02 K/uL (0-0.2) RDW Standard Deviation 65.5 fL (36.4-46.3) RDW Coefficient of Variation 16.8 % (11.5-14.5) Immature Granulocyte % (Auto) 0.5 % Immature Granulocyte # (Auto) 0.06 K/uL (0.00-0.02) Prothrombin Time 18.0 SECONDS (9.0-12.0) Prothromb Time International Ratio 1.7 (0.9-1.1) Activated Partial Thromboplast Time 39.9 SECONDS (21.0-31.0) Partial Thromboplastin Ratio 1.5 Sodium Level 136 mmol/L (136-145) Potassium Level 4.5 mmol/L (3.5-5.1) Chloride Level 95 mmol/L (98-107) Carbon Dioxide Level 32 mmol/L (21-32) Anion Gap 9.0 mmol/L (3-11) Blood Urea Nitrogen 38 mg/dl (7-18) Creatinine 6.98 mg/dl (0.60-1.20) Est Creatinine Clear Calc Drug Dose 10.1 ml/min Estimated GFR () 6.4 Estimated GFR (Non- 5.6 BUN/Creatinine Ratio 5.5 (10-20) Random Glucose 116 mg/dl (70-99) Calcium Level 8.9 mg/dl (8.5-10.1) Magnesium Level 2.7 mg/dl (1.8-2.4) Total Bilirubin 0.4 mg/dl (0.2-1) Direct Bilirubin 0.1 mg/dl (0-0.2) Aspartate Amino Transf (AST/SGOT) 55 U/L (15-37) Alanine Aminotransferase (ALT/SGPT) 38 U/L (12-78) Alkaline Phosphatase 81 U/L (45-117) Total Creatine Kinase 163 U/L (26-192) Creatine Kinase MB 2.2 ng/ml (0.5-3.6) Creatine Kinase MB Ratio 1.3 (0-3.0) Total Protein 7.2 gm/dl (6.4-8.2) Albumin 2.9 gm/dl (3.4-5.0) Thyroid Stimulating Hormone (TSH) 1.890 uIu/ml (0.300-4.500) Bedside Lactic Acid Venous 1.47 mmol/L (0.90-1.70) Assessment & Plan Assessment * 66 yo obese F admitted with Aflutter. * Influenza A positive - starting oseltamivir. Also with infected foul- smelling pressure ulcer - starting Zosyn and vancomycin. * On HD as outpatient [facility]. HD missed today (04/23). Plan for likely HD tomorrow. * Hx MRSA Vancomycin * Obese therefore will likely require larger loading dose, but hesitant to do significantly large dose 2nd HD. Typically recommend 15-20 mg/kg * Will dose at 14 mg/kg IV x1 and check random with AM labs * Goal pre-HD level 15-20 mcg/mL * Typically OK to do 10-15 mcg/mL for cellulitis, but selected higher goal for now 2nd hx MRSA Plan * Vancomycin 1750 mg IV x1 * Random with AM labs 04/24 Pharmacy will continue to follow and will adjust dose/frequency as necessary. Thank you
--- NOTE | 2017-04-23 14:55 | Progress Note ---
Progress Note Date of Service Apr 23, 2017. Progress Note ID Consult Dictated #[id number] A/P: 1. Influenza A 2. Left heel ulcer/cellulitis 3. Leukocytosis -Continue Tamiflu, renal dosing -Continue abx, follow wound culture, blood cultures no recent micro here -Wound care consult pending -Thank you
[2017-04-23] MEDS ORDERED: PERFLUTREN LIPID MICROSPHERE (DEFINITY) IV ONE (15:02)
[2017-04-23] MEDS ORDERED: HEPARIN IV LOW DOSE NO BOLUS SCH (15:03)
[2017-04-23] MEDS ORDERED: AMIODARONE / D5W 100 ML IV SCH (15:15)
[2017-04-23] MEDS ORDERED: AMIODARONE / D5W 200 ML IV SCH (15:30)
[2017-04-23] MEDS ORDERED: WARFARIN SOD 4 MG TAB PO SCH (16:00)
[2017-04-23] MEDS ORDERED: NURSING VERBAL MED ORDER ONE ×2 (16:10→17:30)
--- NOTE | 2017-04-23 16:16 | ECHOCARDIOGRAM REPORT ---
*NOTICE TO RECEIVING REPUBLICAN AGENCY This information is strictly Confidential and protected under [place] law. [place] law prohibits you from making any further disclosure of this information unless further disclosure is expressly permitted by the written consent of the person to whom it pertains or is authorized by law. A general authorization for the release of medical or other information is not sufficient for this purpose. Hospital accepts no responsibility if the information is made available to any other person, INCLUDING THE PATIENT. Interpretation Summary * Name: FRANCO ALCANTARA Study Date: 04/23/2017 02:41 PM BP: 94/72 mmHg * Patient Location: C.2T\S\E221\S\1 HR: 131 * : 1950 (M/d/yyy) Gender: Female Height: 64 in * Age: 66 yrs Ethnicity: CA Weight: 271 lb * Ordering Physician: Juanita Quintana * Referring Physician: Self, Referred * Performed By: Miri Oliver RDCS * * Reason For Study: Atrial Flutter * BSA: 2.2 m2 * The study was technically adequate. * -- Conclusions -- * Tachycardia with rate of 130-150 bpm was present during the echocardiogram. * The left ventricualar cavity appears small and underfilled with severe concentric left ventricular hypertrophy. * The left ventricle is hyperdynamic. * The LV Ejection Fraction = >70 %. * The right ventricle is severely dilated. * The right ventricular systolic function is severely reduced. * Doppler findings do not suggest pulmonary hypertension. Procedure Details * A complete two-dimensional transthoracic echocardiogram was performed (2D, M-mode, Doppler and color flow Doppler). * The study was technically difficult. * The study was technically difficult, but visualization was adequate with the administration of Definity ultrasound contrast. * A contrast injection of Definity was performed to improve assessment of LV function. * Contrast was injected into an intravenous site in the right arm. * One vial of Definity ultrasound contrast was diluted in normal saline to a total volume of 10 ml. A total of '2' ml of solution was administered during imaging. * Lot # [id number] of Definity utilized for procedure. * Expiration date . * The attending nurse who injected the contrast agent was Sherron Cao RN. Left Ventricle * The left ventricular cavity is small. * There is severe concentric left ventricular hypertrophy. * The left ventricle is hyperdynamic. * Ejection Fraction = >70 %. * There are regional wall motion abnormalities as specified. Right Ventricle * The right ventricle is severely dilated. * The right ventricular systolic function is severely reduced. Atria * The left atrial size is normal. * Right atrial size is normal. * There is no evidence of atrial septal defect, but resolution does not allow assessment for a patent foramen ovale. Mitral Valve * The mitral valve is normal. * There is no mitral valve stenosis. * Significant mitral regurgitation is absent. Tricuspid Valve * The tricuspid valve is normal. * There is no tricuspid stenosis. * There is mild tricuspid regurgitation. * Doppler findings do not suggest pulmonary hypertension. Aortic Valve * The aortic valve is trileaflet. * Aortic stenosis is absent. * There is no significant aortic regurgitation. Pulmonic Valve * The pulmonary valve is not well seen, but the Doppler examination is normal without significant regurgitation or stenosis. Great Vessels * The aortic root and proximal ascending aorta are normal sized. Pericardium/Pleural * There is no pericardial effusion. Great Vessels * Normal inferior vena cava diameter and respiratory variation suggests normal central venous pressure. MMode 2D Measurements and Calculations IVSd 1.5 cm IVSs 1.7 cm LVIDd 2.6 cm LVIDs 1.6 cm LVPWd 1.3 cm LVPWs 2.2 cm IVS/LVPW 1.2 FS 40.9 % EDV(Teich) 25.7 ml ESV(Teich) 6.7 ml EF(Teich) 73.8 % EDV(cubed) 18.6 ml ESV(cubed) 3.8 ml EF(cubed) 79.4 % % IVS thick 13.1 % % LVPW thick 71.2 % LV mass(C)d 120.8 grams LV mass(C)dI 54.3 grams/m\S\2 LV mass(C)s 136.0 grams LV mass(C)sI 61.1 grams/m\S\2 SV(Teich) 19.0 ml SI(Teich) 8.5 ml/m\S\2 SV(cubed) 14.7 ml SI(cubed) 6.6 ml/m\S\2 Ao root diam 3.1 cm Ao root area 7.8 cm\S\2 ACS 1.4 cm LA dimension 2.8 cm LA/Ao 0.90 LVAd ap4 15.9 cm\S\2 LVLd ap4 7.1 cm EDV(MOD-sp4) 30.5 ml EDV(sp4-el) 30.1 ml LVAs ap4 7.8 cm\S\2 LVLs ap4 6.2 cm ESV(MOD-sp4) 8.6 ml ESV(sp4-el) 8.4 ml EF(MOD-sp4) 71.8 % EF(sp4-el) 72.2 % LVAd ap2 17.4 cm\S\2 LVLd ap2 7.1 cm EDV(MOD-sp2) 35.4 ml EDV(sp2-el) 36.3 ml LVAs ap2 5.3 cm\S\2 LVLs ap2 5.5 cm ESV(MOD-sp2) 4.9 ml ESV(sp2-el) 4.4 ml EF(MOD-sp2) 86.3 % EF(sp2-el) 87.9 % LVLd %diff -0.98 % EDV(MOD-bp) 32.9 ml LVLs %diff -13.12 % ESV(MOD-bp) 6.7 ml EF(MOD-bp) 79.8 % SV(MOD-sp4) 21.9 ml SI(MOD-sp4) 9.8 ml/m\S\2 SV(MOD-sp2) 30.5 ml SI(MOD-sp2) 13.7 ml/m\S\2 SV(MOD-bp) 26.3 ml SI(MOD-bp) 11.8 ml/m\S\2 SV(sp4-el) 21.7 ml SI(sp4-el) 9.8 ml/m\S\2 SV(sp2-el) 31.9 ml SI(sp2-el) 14.4 ml/m\S\2 Doppler Measurements and Calculations MV E max klaudia 94.4 cm/sec MV dec time 0.13 sec Ao V2 max 91.4 cm/sec Ao max PG 3.3 mmHg Ao max PG (full) 1.4 mmHg LV V1 max PG 1.9 mmHg LV V1 max 69.5 cm/sec PA V2 max 64.9 cm/sec PA max PG 1.7 mmHg TR max klaudia 221.8 cm/sec
[2017-04-23] MEDS ORDERED: SODIUM CHLORIDE 0.9% 250ML 250 ML IV SCH (16:30)
[2017-04-23] MEDS: CALCIUM ACETATE 667MG GELCAP PO SCH (17:08)
[2017-04-23] MEDS: OSELTAMIVIR PHOSPHATE SUSP 30 MG/5 ML UDP PO SCH (17:09)
--- NOTE | 2017-04-23 17:18 | Cardiology Consultation ---
Cardiology Consultation Date of Consultation: Apr 23, 2017 History of Present Illness Cha Ramos is a 66 year old female seen in cardiology consultation per the request Dr. Quintana for the evaluation of tachycardia. The patient has a past history of underlying right bundle branch block and tachycardia due to either atrial flutter or perhaps an atrial tachycardia as captured on EKG in 2015. She was treated with amiodarone and has been on Coumadin anticoagulation in the interim. The patient had presented for outpatient dialysis today and was found to be acutely ill with significant tachycardia and was referred to the emergency department. She's been found to have tachycardia on EKG the per minute interpretation is consistent with atrial flutter with rapid ventricular response. She's also had a nonproductive cough for 3 days, nausea and dizziness. Testing thus far has yielded positive influenza A antigen test. She's been found to have a significant left heel ulcer as well as many ulcers on her buttocks. Initially she was placed on a diltiazem infusion the emergency room. Per my recommendation she has Ardie been transitioned to amiodarone which has only been running for a few minutes having recently arrived to room 221-1 from the emergency room. She is afebrile, and denies any cardiac complaints. Past Medical/Surgical History Problem List: Medical Problems: (1) Atrial flutter (2) Dialysis patient (3) DM2 (diabetes mellitus, type 2) (4) ESRD (end stage renal disease) (5) HTN (hypertension) (6) Hypotension (7) LIA (iron deficiency anemia) (8) CHASITY (obstructive sleep apnea) (9) Renal failure (10) Sepsis (11) Tachycardia (12) UTI (urinary tract infection) Surgical Problems: (1) History of cataract surgery History Social History: She lives at home. Nonsmoker Review Of Systems See above for pertinent positives & negatives. A total of 10 systems reviewed and were otherwise negative. Allergies Coded Allergies: No Known Allergies (Unverified , 04/23/17) Medications Reported Home Medications Medications Dose Route/Sig Max Daily Dose Days Date Category Dose Instructions Senokot S (Senna/Docusate Sodium) 1 Tab Tab 1 Tab PO BID PRN 04/23/17 Reported Reglan (Metoclopramide Hcl) 5 Mg Tab 5 Mg PO UD 04/23/17 Reported 1 tab po once daily 3 times a week on HD days Ocuvite Lutein (Multiple Vitamins W/ Minerals) 1 Cap Cap 1 Cap PO DAILY 04/23/17 Reported Nephrocaps (Vitamin B Complex/Vit C/Folic Acid) Cap 1 Cap PO DAILY 04/23/17 Reported Midodrine Hcl 10 Mg Tab 20 Mg PO UD 04/23/17 Reported TWO 10 MG TABLETS 3X WEEK PRIOR TO HD Gabapentin 100 Mg Cap 100 Mg PO TID 04/23/17 Reported Vitamin D3 (Cholecalciferol) 1,000 Unit Tab 1,000 Units PO DAILY 06/04/16 Reported Auryxia (Ferric Citrate) 210 Mg Tab 210 Mg PO BID 06/04/16 Reported Lipitor (Atorvastatin Calcium) 10 Mg Tab 10 Mg PO HS 06/04/16 Reported Coumadin (Warfarin Sod) 4 Mg Tab 4 Mg PO DAILY 06/04/16 Reported Glipizide Er (Glipizide) 5 Mg Tab 5 Mg PO DAILY 10/24/15 Reported Cordarone (Amiodarone Hcl) 200 Mg Tab 200 Mg PO QAM 10/20/[address] (Aspirin) 81 Mg Tab 81 Mg PO QAM 03/01/15 Reported Phoslo 667 Mg (Calcium Acetate (Phosphate Bin) 667 Mg Cap 1 Cap PO TIDM 02/23/15 Reported Physical Exam Vital Signs (Last 8hrs): Last 8 Hrs Date Time Temp Pulse Resp B/P (MAP) Pulse Ox O2 Delivery O2 Flow Rate FiO2 04/23/17 16:44 36.6 132 24 86/61 (69) 91 Nasal Cannula 2.0 04/23/17 16:27 127 101/66 (78) 04/23/17 16:08 136 92/63 (73) 04/23/17 15:49 133 89/60 (70) 04/23/17 15:34 138 91/63 (72) 04/23/17 15:30 37.1 137 18 90/60 (70) 94 Room Air 04/23/17 15:23 139 90/60 (70) 04/23/17 15:15 138 90/60 (70) 94 Room Air 04/23/17 15:00 137 103/70 (81) 96 Room Air 04/23/17 14:45 138 81/58 (66) 94 Room Air 04/23/17 13:42 139 20 108/83 97 Room Air 04/23/17 13:12 140 20 110/76 97 Room Air 04/23/17 13:00 141 16 87/63 97 Room Air 04/23/17 12:10 131 16 94/72 04/23/17 12:09 94 Room Air 04/23/17 12:05 130 16 82/67 98 Room Air 04/23/17 11:33 135 04/23/17 11:32 152 16 92/73 94 Room Air 04/23/17 10:28 15 04/23/17 10:17 37.1 156 20 106/85 95 Room Air General Appearance: Alert and Oriented x3. Chronically ill in appearance Head: Normocephalic Atraumatic. Eyes: PERRLA, EOMI, conjunctiva and sclera clear Neck: Supple. No carotid bruits noted. No JVD. No HJD. Respiratory: Breath sounds clear to auscultation bilaterally. No w/r/r. Cardiovascular: Tachycardic, no definite murmurs heard however her heart sounds are somewhat distant due to her body habitus Abdomen: Normal bowel sounds, soft nontender. no abdominal bruits. Extremities: Chronic skin scaling and venous stasis changes. Chronic left heel wound noted. Neuro: No focal deficits. Psychiatric: Normal affect. Data Last 24 Hours Test 04/23/17 11:11 04/23/17 11:15 04/23/17 11:21 04/23/17 16:11 Influenza Type A Antigen POS for Influ A Influenza Type B Antigen Neg for Influ B White Blood Count 11.12 K/uL Red Blood Count 3.34 M/uL Hemoglobin 11.0 g/dL Hematocrit 35.8 % Mean Corpuscular Volume 107.2 fL Mean Corpuscular Hemoglobin 32.9 pg Mean Corpuscular Hemoglobin Concent 30.7 g/dl Platelet Count 218 K/uL Mean Platelet Volume 9.5 fL Neutrophils (%) (Auto) 78.6 % Lymphocytes (%) (Auto) 5.6 % Monocytes (%) (Auto) 14.7 % Eosinophils (%) (Auto) 0.4 % Basophils (%) (Auto) 0.2 % Neutrophils # (Auto) 8.74 K/uL Lymphocytes # (Auto) 0.62 K/uL Monocytes # (Auto) 1.64 K/uL Eosinophils # (Auto) 0.04 K/uL Basophils # (Auto) 0.02 K/uL RDW Standard Deviation 65.5 fL RDW Coefficient of Variation 16.8 % Immature Granulocyte % (Auto) 0.5 % Immature Granulocyte # (Auto) 0.06 K/uL Prothrombin Time 18.0 SECONDS Prothromb Time International Ratio 1.7 Activated Partial Thromboplast Time 39.9 SECONDS Partial Thromboplastin Ratio 1.5 Sodium Level 136 mmol/L Potassium Level 4.5 mmol/L Chloride Level 95 mmol/L Carbon Dioxide Level 32 mmol/L Anion Gap 9.0 mmol/L Blood Urea Nitrogen 38 mg/dl Creatinine 6.98 mg/dl Est Creatinine Clear Calc Drug Dose 10.1 ml/min Estimated GFR () 6.4 Estimated GFR (Non- 5.6 BUN/Creatinine Ratio 5.5 Random Glucose 116 mg/dl Calcium Level 8.9 mg/dl Magnesium Level 2.7 mg/dl Total Bilirubin 0.4 mg/dl Direct Bilirubin 0.1 mg/dl Aspartate Amino Transf (AST/SGOT) 55 U/L Alanine Aminotransferase (ALT/SGPT) 38 U/L Alkaline Phosphatase 81 U/L Total Creatine Kinase 163 U/L Creatine Kinase MB 2.2 ng/ml Creatine Kinase MB Ratio 1.3 Total Protein 7.2 gm/dl Albumin 2.9 gm/dl Thyroid Stimulating Hormone (TSH) 1.890 uIu/ml Bedside Lactic Acid Venous 1.47 mmol/L Bedside Glucose 106 mg/dl Test 04/23/17 16:25 Serial troponins have been ordered the next one is due at 1854 and is currently pending. EKG performed 04/23/17 at 10:38 AM revealed tachycardia 153 bpm with right bundle branch block, in comparison to prior tracings, I believe this is atrial flutter. Sinus tachycardia is of course another possibility. Transthoracic echocardiogram performed today 04/23/17 and reviewed independently by the undersigned: * -- Conclusions -- * Tachycardia with rate of 130-150 bpm was present during the echocardiogram. * The left ventricualar cavity appears small and underfilled with severe concentric left ventricular hypertrophy. * The left ventricle is hyperdynamic. * The LV Ejection Fraction = >70 %. * The right ventricle is severely dilated. * The right ventricular systolic function is severely reduced. * Doppler findings do not suggest pulmonary hypertension. Assessment & Plan Impression: 66-year-old female 1. Tachycardia, sinus tachycardia versus recurrent atrial flutter in the setting of sepsis syndrome with acute influenza A, and also additional infectious sources including left heel ulcer and buttock ulcers 2. Echocardiogram findings suggestive of small underfilled left ventricular chamber with hyperdynamic left ventricular systolic function, the right ventricle however is dilated and hypocontractile compared to her prior echo in 2016 without Doppler findings suggest pulmonary hypertension Discussion/recommendations: Patient is currently receiving IV fluids including significant amount of fluid for administration of her first doses of antibiotics. Recommend continue hydration. Her echocardiogram findings are somewhat perplexing. I think her echocardiogram data supports the concept of doing her fluid hydration. 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 If this is perhaps unlikely given the fact that she is on chronic anticoagulation even though her INR is a little bit subtherapeutic at 1.7. She however does have risk factors of stasis. At present I recommend proceeding with a lower extremity venous duplex for thoroughness. Either way she has been placed on an unfractionated heparin infusion for stroke prophylaxis given her atrial flutter. She does have a venous thromboembolic event in addition this will be helpful in treating that as well. Infectious disease input is noted and appreciated. Case discussed with Dr. Quintana in person prior to the echocardiogram having been completed and again on the telephone and after the echocardiogram.
[2017-04-23] MEDS: INSULIN ASPART 100 UNITS/ML 3 ML PEN SC SCH ×2 (17:25→20:53)
[2017-04-23] MEDS ORDERED: SODIUM CHLORIDE 0.9% 1000ML 1,000 ML IV ONE (17:30)
[2017-04-23] MEDS ORDERED: HEPARIN 25,000 UNIT/500ML D5W 500 ML IV PRN (17:45)
--- NOTE | 2017-04-23 20:41 | INFECT. DISEASE CONSULTATION ---
DATE OF CONSULTATION: 04/23/2017 HISTORY OF PRESENT ILLNESS: This is a 66-year-old female who was sent to the Emergency Room from her dialysis unit secondary to tachycardic and lower extremity edema. She does have a history of AFib for which she is treated with Coumadin and amiodarone. She does have end-stage renal disease and does receive dialysis 3 times a week. Per the H&P, she started with a nonproductive cough of 3 days prior to admission. This has been worsening with some associated dizziness and nausea. In the Emergency Room, she was found to have a positive flu swab for influenza A and has been started on renally dosed Tamiflu. She is currently in droplet precautions. She does have a history of multiple ulcerations of her lower extremities, most recently of her left heel. She states she is to wear a boot at home but has not been doing that and believes that she exacerbated her ulceration which she describes as intermittent. She has followed up with the wound care center in [place] previously but has not been there for some time. 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 She denies any recent antibiotics prior to admission to the hospital. In the ER, she was placed on Zosyn and vancomycin empirically and remains on this. Blood cultures as well as wound culture are pending. She denies any known drainage from her left heel, but has some difficulty with caring for her lower extremities and is unclear if she is having drainage or not. She denies any fevers or chills at home. She does have pain in the left foot which she states is new. She is currently undergoing echocardiogram on my examination. She denies any chest pain, cough, shortness of breath, nausea, vomiting or diarrhea. Her only major complaint is pain in the foot. Wound care consult is pending as well. PAST MEDICAL HISTORY: Significant for end-stage renal disease on dialysis, type 2 diabetes, hypertension, iron deficiency anemia, obstructive sleep apnea, paroxysmal AFib, right bundle branch block. PAST SURGICAL HISTORY: Significant for cataract surgery as well as dialysis access placement. FAMILY HISTORY: Noncontributory. SOCIAL HISTORY: Negative for tobacco use, alcohol use or drug use. ALLERGIES: She has no known drug allergies. CURRENT MEDICATIONS: Include aspirin, vitamin D, Nephrocaps, Coumadin, multivitamin, Tamiflu, Zosyn, Lipitor, iron, PhosLo, insulin, vancomycin, Zosyn, subQ heparin, Neurontin, Reglan, midodrine, Senokot, amiodarone, diltiazem, Tylenol. PHYSICAL EXAMINATION: VITAL SIGNS: She is afebrile, pulse was in the 130s, respiratory rate is 20, blood pressure is 108/83, oxygen saturation is 97% on room air. GENERAL: She is awake, alert and oriented x3. HEENT: Extraocular muscles are intact. Mucous membranes are dry. HEART: Auscultation was not performed as she is having an echocardiogram. She does not have any respiratory distress. ABDOMEN: Soft. EXTREMITIES: There is bilateral lower extremity edema with necrotic ulceration of the left heel with foul smelling drainage. LABORATORY STUDIES: CBC today reveals a white blood cell count of 11.1, hemoglobin 11, platelets are 218. Chemistry panel reveals a sodium of 136, potassium 4.5, chloride 95, bicarbonate 32, BUN 38, creatinine 6.9, glucose is 116. LFTs are within normal limits. TSH is normal. Lactic acid is negative. Again, flu swab is positive for influenza A. Blood cultures are pending. Wound culture is ordered. A chest x-ray does not show any evidence of infiltrate. ASSESSMENT AND PLAN: 1. Influenza A, on Tamiflu. This will be continued and she will remain on droplet isolation. 2. Left heel ulceration. We will keep her on empiric antibiotics pending the results of the wound culture as well as blood cultures and wound care consultation is pending as well. Thank you for this consultation.
[2017-04-23] MEDS: ATORVASTATIN 10 MG TAB PO SCH (20:55)
[2017-04-23] MEDS: GABAPENTIN 100 MG CAP PO SCH (20:55)
[2017-04-23] MEDS ORDERED: LANTUS PER UNIT CHARGE SQ SCH (21:00)
[2017-04-23] MEDS: AMIODARONE / D5W 200 ML IV SCH (21:13)
[2017-04-23] MEDS: PIPERACILL/TAZOBAC IV 3.375 GM in DEXTROSE 5% 100ML IV SCH (21:14)
--- NOTE | 2017-04-23 23:13 | Progress Note ---
Progress Note Date of Service Apr 23, 2017. Progress Note ATTENDING ADDENDUM : updated form Dr Yo -ECHO shows hyperdynamic LV suggestive of intravascular vol depletion pt has multiple infected wound -high likelihood of dehydration can precipitate tachyarrhythmia ordered for NSS 250 ml bolus /followed by IVF 500 ml @ 75 ml /hr pt did not had HD today will be evaluated by Nephrology and possible scheduled HD tomorrow Cxray ordered in AM to asses sign of vol overload /pulm congestion ECHO suggestive of RV strain Lower ext Doppler ordered for Cardiology to R/O DVT if positive , may need eval for PE pt already been anticoagulated with IV Heparin
[2017-04-24] VITALS (19 sets, daily range): BP systolic 92–131; BP diastolic 46–76; PULSE 60–74; TEMP 36.6–37; O2SAT 91–99
[2017-04-24 00:26] LABS: PTT PATIENT 122.8 SECONDS (21.0-31.0)
--- NOTE | 2017-04-24 06:37 | Clinical Documentation Query ---
CLINICAL DOCUMENTATION QUERY The H&P notes this patient as having multiple ulcers. The left ankle ulcer is defined as a pressure ulcer but lacks staging. All other ulcers lack staging. WOCN has not seen patient yet, but per progress notes was ordered. In your clinical opinion is this patient being managed for: ( ) Pressure ulcer of left heel ( ) Stage I ( x ) Stage II ( ) Stage III ( ) Stage IV ( ) Pressure ulcer to right Buttocks/thigh ( ) Stage I ( x ) Stage II ( ) Stage III ( ) Stage IV ( ) Not Agree ( ) Other explanation of clinical findings (Please Explain) ( ) Unable to determine (Please Define) ( ) Need to Discuss The medical record reflects the following clinical findings, treatment, and risk factors. Clinical Indicators: H&P and progress notes define: LEFT HEEL : FOUL SMELLING LARGE ULCER 8x10 cm with black necrotic edge multiple pressure ulcer on right posterior thigh , buttock area Treatment: WOCN consult, ID consult, pressure ulcer precautions, waffle boots, Risk Factors: Age, obesity, diabetes, ESRD Please clarify and document your clinical opinion in the progress notes and discharge summary. Terms such as "probable", "suspected", "likely", "questionable", "possible", or "still to be ruled out" are acceptable. IF IN AGREEMENT, YOU MUST DOCUMENT ABOVE DIAGNOSTIC STATEMENT IN DAILY PROGRESS NOTES AND DISCHARGE SUMMARY. This document is not part of the patient's record. Thank You, Ky Byrnes RN [phone]
--- NOTE | 2017-04-24 06:43 | DIAGNOSTIC IMAGING REPORT ---
VENOUS DOPPLER LWR EXT BILA HISTORY: Pain. Edema. DVT COMPARISON STUDY: None. FINDINGS: There is normal compressibility, flow, and augmentation within the bilateral lower extremity deep venous systems. IMPRESSION: No DVT within the right or left lower extremity. The above report was generated using voice recognition software. It may contain grammatical, syntax or spelling errors. Electronically signed by: Jose E Kraft M.D. 04/24/2017 6:42 AM Dictated Date/Time: 04/24/2017 6:41 AM
[2017-04-24 07:23] LABS: HEMATOCRIT 30.6 % (37-47); HEMOGLOBIN 9.4 g/dL (12.0-16.0); MEAN CELL VOLUME 105.5 fL (80-100); MEAN CORPUSCULAR HEMOGLOBIN 32.4 pg (25-34); MEAN CORPUSCULAR HGB CONC 30.7 g/dl (32-36); MEAN PLATELET VOLUME 8.9 fL (7.4-10.4); PLATELET COUNT 161 K/uL (130-400); RED CELL DISTRIBUTION WIDTH CV 16.6 % (11.5-14.5); RED CELL DISTRIBUTION WIDTH SD 63.5 fL (36.4-46.3); WHITE BLOOD COUNT 7.15 K/uL (4.8-10.8)
[2017-04-24] MEDS: AMIODARONE / D5W 200 ML IV SCH ×2 (07:41→19:09)
[2017-04-24] MEDS: CHOLECALCIFEROL 1000 INTER.UNIT TAB PO SCH (07:41)
[2017-04-24] MEDS: CALCIUM ACETATE 667MG GELCAP PO SCH ×5 (07:42→16:15)
[2017-04-24] MEDS: NEPHROCAPS PO SCH (07:42)
[2017-04-24] MEDS: GABAPENTIN 100 MG CAP PO SCH ×5 (07:42→21:11)
[2017-04-24] MEDS: CEROVITE ADV FORMULA TAB PO SCH (07:42)
[2017-04-24] MEDS: ASPIRIN 81 MG ECTAB PO SCH (07:43)
[2017-04-24 08:07] LABS: CALCIUM 7.9 mg/dl (8.5-10.1); CREATININE 7.13 mg/dl (0.60-1.20); POTASSIUM 4.1 mmol/L (3.5-5.1)
[2017-04-24 08:19] LABS: PTT PATIENT 146.6 SECONDS (21.0-31.0)
[2017-04-24] MEDS: INSULIN ASPART 100 UNITS/ML 3 ML PEN SC SCH ×4 (08:21→21:00)
[2017-04-24 08:55] LABS: HEMOGLOBIN A1C 4.6 % (4.5-5.6)
[2017-04-24] MEDS ORDERED: EPOETIN ALFA 10,000 UNITS/ML VIAL IV. SCH (09:00)
--- NOTE | 2017-04-24 09:25 | NEPHROLOGY CONSULTATION ---
DATE OF CONSULTATION: 04/24/2017 ATTENDING OF RECORD: Dr. Mcdaniels. REASON FOR CONSULTATION: End-stage renal disease. HISTORY OF PRESENT ILLNESS: This is a 66-year-old female who dialyzes on Tuesdays, , and Saturdays at [facility]. The patient follows with Dr. Helton. The patient was at the dialysis unit on Saturday for regular dialysis treatment and the patient was tachycardic. No dialysis was performed. The patient was sent to [facility] Emergency Room for further evaluation. The patient was found to be in atrial flutter in the 150s and given Cardizem. The patient is on amiodarone and Coumadin as an outpatient and follows with Dr. Mariee for paroxysmal AFib. The patient's pulse is now on the 60s-70s. The patient also was positive for the flu. Resting comfortably. PAST MEDICAL HISTORY: End-stage renal disease, type 2 diabetes, hypertension, AFib/flutter, and obstructive sleep apnea. PAST SURGICAL HISTORY: Dialysis access placement and cataract surgeries. SOCIAL HISTORY: No smoking, no alcohol, and no drugs. and lives with her . FAMILY HISTORY: No renal disease in the family REVIEW OF SYSTEMS: The patient denies fevers, chills, headaches, blurry vision, chest pain, shortness of breath, nausea, vomiting, diarrhea, constipation, rash or itching. The patient is asymptomatic and resting comfortably with no specific complaints. All other review of systems otherwise negative. CURRENT MEDICATIONS: Reglan 5 mg on Tuesdays, , and Saturdays; midodrine 20 mg on Tuesdays, , and Saturdays; aspirin 81 mg a day; vitamin D 1000 units daily; Nephrocaps daily; multivitamin daily; Zosyn 3.375 IV q. 12 hours; amiodarone IV; Lipitor 10 mg at night; Neurontin 100 mg p.o. t.i.d.; heparin drip; PhosLo 1 p.o. t.i.d. with meals; Coumadin 4 mg daily; and Tamiflu 30 mg on Tuesdays, , and Saturdays. PHYSICAL EXAMINATION: VITAL SIGNS: Temperature 36.9, pulse 74, respiratory rate 18, blood pressure 131/69, and satting 99% on room air. GENERAL: Awake, alert, and oriented x3. EYES: No scleral icterus. ENT: Moist mucous membranes. NECK: Supple. PULMONARY: Clear to auscultation. CARDIAC: Regular rate and rhythm. ABDOMEN: Bowel sounds positive. Soft and nontender. EXTREMITIES: There was no clubbing, cyanosis or edema. NEUROLOGICALLY: Nonfocal. DERMATOLOGIC: No rash or ulcers noted. LABORATORY DATA: White count 7, H&H 9 and 30, and platelet count is 161. Sodium level is 135, potassium 4.1, chloride 97, bicarb is 29, BUN is 40, creatinine 7.13, glucose 87, calcium 7.9, and mag is 2.6. Troponin 0.095. INR is 2. UA shows large leukocyte esterase, 5-10 RBCs, and greater than 30 WBCs. Vancomycin level is 24. Flu is positive. Chest x-ray shows mild cardiomegaly with volume overload. No filiberto pulmonary edema and findings suggestive with left atrial enlargement. IMPRESSION AND PLAN: 1. End-stage renal disease. Last dialysis treatment was Saturday. The patient was too unstable yesterday for dialysis. Heart rate is under much better control. The patient is relatively asymptomatic at this time. We will plan on dialysis today on a 3K bath with 2 liters off as blood pressure tolerates. 2. Anemia of chronic kidney disease. Goal hemoglobin 10-12. Hemoglobin level 9.4 and we will dose Procrit. Normally gets Mircera as an outpatient; however, is nonformulary here. 3. Renal osteodystrophy. We will continue the patient's phosphate binders and check phosphorus levels intermittently. I appreciate the consultation. SRIKANTH
[2017-04-24] MEDS: PIPERACILL/TAZOBAC IV 3.375 GM in DEXTROSE 5% 100ML IV SCH ×2 (10:21→22:15)
--- NOTE | 2017-04-24 10:37 | Pharmacy Progress Note ---
Pharmacy Abx Dose Short Note Date of Service Apr 24, 2017. Assessment & Plan Assessment 66 year old female receiving vancomycin/Zosyn for treatment of HD patient with infected pressure ulcer L heel. Also Tamiflu for (+) influenza A. Day # 2 of antimicrobial therapy. (Duration may depend on clinical progress. ) Patient making small amount of urine. Plan Vancomycin * Pre-HD level of 23.8 mcg/mL is therapeutic/supratherapeutic. Will give small additional dose following dialysis. * Change to 500 mg IV x1 following dialysis today. * Goal trough level for cellulitis : 15 to 20 mcg/mL * Random level will be ordered prior to next HD session. Zosyn Continue 3.375 Gm extended infusion every 12 hr for unchanged renal function. Pharmacy will continue to follow and will adjust dose/frequency as necessary. Thank you.
[2017-04-24 10:59] LABS: ISTAT CREATININE 7.1 mg/dl (0.6-1.3); ISTAT IONIZED CALCIUM 1.09 mmol/l (1.12-1.32); ISTAT POTASSIUM 4.7 mEq/L (3.3-5.0)
[2017-04-24 11:23] LABS: PTT PATIENT 86.4 SECONDS (21.0-31.0)
--- NOTE | 2017-04-24 11:32 | Cardiology Progress Note ---
Cardiology Progress Note Date of Service Apr 24, 2017. Cardiology Progress Note Patient converted from AFL RVR with SR overnight at 20:55 on 04/23 on amiodarone infusion. She is tolerated HD from a BP standpoint at present. EKG this am reveals SR at 61 bpm with chronic RBBB. INR=2. Plan: Continue IV amiodarone for now, as I believe hemodynamics would be better if SR maintained and given risk of ongoing sepsis picture from influenza , heel wound , buttock wound certainly is at risk for provocation of further atrial arrhythmia. INR now at goal at 2, can DC heparin. Holding coumadin today, as I anticipate INR will trend up due to illness, IV amiodarone, and antibiotics.
--- NOTE | 2017-04-24 12:03 | Progress Note ---
Subjective Date of Service: Apr 24, 2017. Subjective wound culture with S. aureus, urine with gnr. blood cultures penidng. wbc improved. remains on abx, also on tamiflu, tolerating. Problem List Medical Problems: (1) Altered mental status Status: Acute (2) Ambulatory dysfunction Status: Acute (3) Atrial flutter Status: Acute (4) Atrial flutter with rapid ventricular response Status: Acute (5) Bronchitis Status: Acute (6) Chronic renal failure Status: Acute (7) Fracture of distal fibula Status: Acute (8) Fracture of malleolus of right ankle Status: Acute (9) Leukocytosis Status: Acute (10) Pneumonia Status: Acute (11) SVT (supraventricular tachycardia) Status: Acute (12) Tibia fracture Status: Acute (13) Weakness Status: Acute Objective Vital Signs Date Time Temp Pulse Resp B/P (MAP) Pulse Ox O2 Delivery O2 Flow Rate FiO2 04/24/17 11:45 61 100/56 04/24/17 11:30 61 98/54 04/24/17 11:15 60 92/55 04/24/17 11:00 62 101/58 04/24/17 10:45 61 93/50 04/24/17 10:30 60 97/46 04/24/17 10:15 60 92/49 04/24/17 10:00 60 95/51 04/24/17 09:45 62 104/58 04/24/17 09:40 36.8 63 105/60 (75) 04/24/17 08:00 Nasal Cannula 2.0 04/24/17 07:13 36.9 74 18 131/69 (89) 99 04/24/17 04:10 Room Air 04/24/17 04:09 36.7 66 16 115/74 (88) 98 Nasal Cannula 2.0 04/24/17 00:15 Room Air 04/23/17 23:57 36.9 65 16 108/64 (79) 98 Nasal Cannula 2.0 04/23/17 20:40 Room Air 04/23/17 20:30 37.0 75 19 94/66 (75) 96 Room Air 04/23/17 19:30 36.7 124 19 95/67 (76) 98 Nasal Cannula 2.0 04/23/17 19:00 37.3 124 18 103/67 (79) 97 Nasal Cannula 2.0 04/23/17 18:15 131 112/75 (87) 100 Nasal Cannula 2.0 04/23/17 18:00 37.2 129 19 97/66 (76) 98 Nasal Cannula 2.0 04/23/17 17:45 127 91/64 (73) 04/23/17 17:15 131 90/62 (71) 04/23/17 17:00 128 87/65 (72) 04/23/17 16:44 36.6 132 24 86/61 (69) 91 Nasal Cannula 2.0 04/23/17 16:27 127 101/66 (78) 04/23/17 16:08 136 92/63 (73) 04/23/17 16:00 Room Air 04/23/17 15:49 133 89/60 (70) 04/23/17 15:34 138 91/63 (72) 04/23/17 15:30 37.1 137 18 90/60 (70) 94 Room Air 04/23/17 15:23 139 90/60 (70) 04/23/17 15:15 138 90/60 (70) 94 Room Air 04/23/17 15:00 137 103/70 (81) 96 Room Air 04/23/17 14:45 138 81/58 (66) 94 Room Air 04/23/17 13:42 139 20 108/83 97 Room Air 04/23/17 13:12 140 20 110/76 97 Room Air 04/23/17 13:00 141 16 87/63 97 Room Air 04/23/17 12:10 131 16 94/72 04/23/17 12:09 94 Room Air 04/23/17 12:05 130 16 82/67 98 Room Air Laboratory Results Item Value Date Time Gram Stain - Final Resulted 04/23/17 1625 Ulcer Foot Urine Culture - Preliminary Resulted 04/23/17 1625 Urine , Clean Catch Gram Negative Bacilli Last 24 Hours Test 04/23/17 16:11 04/23/17 16:25 04/23/17 18:59 04/23/17 19:56 Bedside Glucose 106 mg/dl 116 mg/dl Urine Color YELLOW Urine Appearance CLOUDY Urine pH 6.5 Urine Specific [place] 1.020 Urine Protein 2+ Urine Glucose (UA) NEG Urine Ketones TRACE Urine Occult Blood 1+ Urine Nitrite NEG Urine Bilirubin NEG Urine Urobilinogen NEG Urine Leukocyte Esterase LARGE Urine RBC 5-10 /hpf Urine WBC >30 /hpf Urine Epithelial Cells >30 /lpf Urine Bacteria 4+ Troponin I 0.056 ng/ml Test 04/23/17 23:36 04/24/17 00:51 04/24/17 07:05 04/24/17 07:12 Activated Partial Thromboplast Time 122.8 SECONDS 146.6 SECONDS Partial Thromboplastin Ratio 4.7 5.6 Troponin I 0.094 ng/ml 0.095 ng/ml Prothrombin Time 20.7 SECONDS Prothromb Time International Ratio 2.0 D-Dimer < 190 ug/L FEU Sodium Level 135 mmol/L Potassium Level 4.1 mmol/L Chloride Level 97 mmol/L Carbon Dioxide Level 29 mmol/L Anion Gap 9.0 mmol/L Blood Urea Nitrogen 40 mg/dl Creatinine 7.13 mg/dl Est Creatinine Clear Calc Drug Dose 9.8 ml/min Estimated GFR () 6.3 Estimated GFR (Non- 5.4 BUN/Creatinine Ratio 5.4 Random Glucose 87 mg/dl Estimated Average Glucose 85 mg/dl Hemoglobin A1c 4.6 % Calcium Level 7.9 mg/dl Magnesium Level 2.6 mg/dl Triglycerides Level 99 mg/dl Cholesterol Level 100 mg/dl HDL Cholesterol 56 mg/dl LDL Cholesterol, Calculated 24 mg/dl VLDL Cholesterol, Calculated 20 mg/dl Cholesterol/HDL Ratio 1.8 Random Vancomycin Level 23.8 mcg/ml White Blood Count 7.15 K/uL Red Blood Count 2.90 M/uL Hemoglobin 9.4 g/dL Hematocrit 30.6 % Mean Corpuscular Volume 105.5 fL Mean Corpuscular Hemoglobin 32.4 pg Mean Corpuscular Hemoglobin Concent 30.7 g/dl RDW Standard Deviation 63.5 fL RDW Coefficient of Variation 16.6 % Platelet Count 161 K/uL Mean Platelet Volume 8.9 fL Test 04/24/17 07:46 04/24/17 09:39 04/24/17 10:58 Bedside Glucose 91 mg/dl 110 mg/dl Activated Partial Thromboplast Time 86.4 SECONDS Partial Thromboplastin Ratio 3.3 Assessment and Plan (1) Diabetic foot ulcer Assessment & Plan: continue abx, follow vanco levels. await final sensitivities. (2) Influenza A Assessment & Plan: continue tamiflu, renal dosing.
[2017-04-24] MEDS ORDERED: OSELTAMIVIR PHOSPHATE SUSP 30 MG/5 ML UDP PO SCH (16:00)
[2017-04-24] MEDS ORDERED: VANCOMYCIN INJ 500 MG in SODIUM CHLORIDE 0.9% 250ML 250 ML IV SCH (16:00)
--- NOTE | 2017-04-24 17:06 | Progress Note ---
Internal Med Progress Note Date of Service: Apr 24, 2017. Provider Documentation: SUBJECTIVE: Patient s/p dialysis and eating her dinner on the chair. Denies chest pain or shortness of breath OBJECTIVE: General Appearance: no apparent distress, + obese Head: normocephalic, atraumatic Eyes: normal inspection,EOMI, sclerae normal ENT: hearing grossly normal, pharynx normal Neck: supple, no JVD, trachea midline Respiratory/Chest: chest non-tender, no respiratory distress, no accessory muscle use,good air entry, no wheezing Cardiovascular: heart rate in the 60s Abdomen/GI: normal bowel sounds, non tender, soft Extremities/Musculoskelatal: bilateral LE edema with very dry skin, mild erythema, Ext non-tender to palpation, Left calcaneous with ulcer with eschar on wound edges with foul odor, no filiberto discharge noted, some mild surrounding erythema Neurologic/Psych: alert, normal mood/affect, oriented x 3 ASSESSMENT & PLAN: 66 yo F with hx of paroxysmal Afib on Coumadin , ESRD on HD follows with Nephrology Dr Vera at [facility] , Type 2 DM and other medical issues sent form her Dialysis center on 04/23/17 and found to be in rapid afib/Flutter. Patient converted from AFL RVR with SR overnight at 20:55 on 04/23/17 on amiodarone infusion. 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 Cardiology service as discontinued the IV heparin for anticoagulation as patient's INR is 2 which is at goal. Coumadin to be held on as per cardiology service as the INR is anticipated to be increased due to illness, IV amiodarone, and antibiotics. Sources of infection: stage 2 buttock pressure ulcer, stage 2 left heel ulcer Wound culture with S. aureus, urine with gram negative bacilli. blood cultures pending. Continue Zosyn /Vancomycin INFLUENZA A POSITIVE: Continue Tamiflu ESRD ON HD : s/p dialysis on 04/24/17 TYPE 2 DM : poorly controlled , last hb A1c > 10 insulin [facility] for glycemic management PT evaluation 04/24/17: required assist with bed mobility and transfer, bed<--> chair. Skilled, inpatient P.T. currently does not appear indicated FULL CODE DVT PROPHYLAXIS: Coumadin Vital Signs: Date Time Temp Pulse Resp B/P (MAP) Pulse Ox O2 Delivery O2 Flow Rate FiO2 04/24/17 16:00 Room Air 04/24/17 15:41 37.0 68 16 128/76 (93) 95 04/24/17 12:50 36.8 62 102/60 (74) 04/24/17 12:30 60 98/52 04/24/17 12:15 60 104/55 04/24/17 12:00 61 98/54 04/24/17 12:00 Nasal Cannula 2.0 04/24/17 11:45 61 100/56 04/24/17 11:30 61 98/54 04/24/17 11:15 60 92/55 04/24/17 11:00 62 101/58 04/24/17 10:45 61 93/50 04/24/17 10:30 60 97/46 04/24/17 10:15 60 92/49 04/24/17 10:00 60 95/51 04/24/17 09:45 62 104/58 04/24/17 09:40 36.8 63 105/60 (75) 04/24/17 08:00 Nasal Cannula 2.0 04/24/17 07:13 36.9 74 18 131/69 (89) 99 04/24/17 04:10 Room Air 04/24/17 04:09 36.7 66 16 115/74 (88) 98 Nasal Cannula 2.0 04/24/17 00:15 Room Air 04/23/17 23:57 36.9 65 16 108/64 (79) 98 Nasal Cannula 2.0 04/23/17 20:40 Room Air 04/23/17 20:30 37.0 75 19 94/66 (75) 96 Room Air 04/23/17 19:30 36.7 124 19 95/67 (76) 98 Nasal Cannula 2.0 04/23/17 19:00 37.3 124 18 103/67 (79) 97 Nasal Cannula 2.0 Lab Results: Results Past 24 Hours Test 04/23/17 19:56 04/23/17 23:36 04/24/17 00:51 04/24/17 07:05 Range/Units Bedside Glucose 116 70-90 mg/dl Activated Partial Thromboplast Time 122.8 146.6 21.0-31.0 SECONDS Partial Thromboplastin Ratio 4.7 5.6 Troponin I 0.094 0.095 0-0.045 ng/ml Prothrombin Time 20.7 9.0-12.0 SECONDS Prothromb Time International Ratio 2.0 0.9-1.1 D-Dimer < 190 0-500 ug/L FEU Sodium Level 135 136-145 mmol/L Potassium Level 4.1 3.5-5.1 mmol/L Chloride Level 97 98-107 mmol/L Carbon Dioxide Level 29 21-32 mmol/L Anion Gap 9.0 3-11 mmol/L Blood Urea Nitrogen 40 7-18 mg/dl Creatinine 7.13 0.60-1.20 mg/dl Est Creatinine Clear Calc Drug Dose 9.8 ml/min Estimated GFR () 6.3 Estimated GFR (Non- 5.4 BUN/Creatinine Ratio 5.4 10-20 Random Glucose 87 70-99 mg/dl Estimated Average Glucose 85 mg/dl Hemoglobin A1c 4.6 4.5-5.6 % Calcium Level 7.9 8.5-10.1 mg/dl Magnesium Level 2.6 1.8-2.4 mg/dl Triglycerides Level 99 0-150 mg/dl Cholesterol Level 100 0-200 mg/dl HDL Cholesterol 56 mg/dl LDL Cholesterol, Calculated 24 mg/dl VLDL Cholesterol, Calculated 20 mg/dl Cholesterol/HDL Ratio 1.8 Random Vancomycin Level 23.8 mcg/ml Test 04/24/17 07:12 04/24/17 07:46 04/24/17 09:39 04/24/17 10:58 Range/Units White Blood Count 7.15 4.8-10.8 K/uL Red Blood Count 2.90 4.2-5.4 M/uL Hemoglobin 9.4 12.0-16.0 g/dL Hematocrit 30.6 37-47 % Mean Corpuscular Volume 105.5 80-100 fL Mean Corpuscular Hemoglobin 32.4 25-34 pg Mean Corpuscular Hemoglobin Concent 30.7 32-36 g/dl RDW Standard Deviation 63.5 36.4-46.3 fL RDW Coefficient of Variation 16.6 11.5-14.5 % Platelet Count 161 130-400 K/uL Mean Platelet Volume 8.9 7.4-10.4 fL Bedside Glucose 91 110 70-90 mg/dl Activated Partial Thromboplast Time 86.4 21.0-31.0 SECONDS Partial Thromboplastin Ratio 3.3 Test 04/24/17 16:27 Range/Units Bedside Glucose 137 70-90 mg/dl
[2017-04-24] MEDS: ATORVASTATIN 10 MG TAB PO SCH (21:11)
[2017-04-24] MEDS: PROSOURCE NOCARB 30ML/PKT PO SCH (21:11)
[2017-04-25] VITALS (18 sets, daily range): BP systolic 84–129; BP diastolic 51–83; PULSE 57–76; TEMP 36.6–37; O2SAT 92–98
[2017-04-25 05:19] LABS: HEMATOCRIT 30.9 % (37-47); HEMOGLOBIN 9.7 g/dL (12.0-16.0); MEAN CELL VOLUME 105.1 fL (80-100); MEAN CORPUSCULAR HGB CONC 31.4 g/dl (32-36); MEAN PLATELET VOLUME 9.8 fL (7.4-10.4); PLATELET COUNT 165 K/uL (130-400); RED CELL DISTRIBUTION WIDTH CV 16.4 % (11.5-14.5); RED CELL DISTRIBUTION WIDTH SD 62.7 fL (36.4-46.3); WHITE BLOOD COUNT 8.21 K/uL (4.8-10.8)
[2017-04-25 05:59] LABS: ALBUMIN 2.2 gm/dl (3.4-5.0); CALCIUM 7.7 mg/dl (8.5-10.1); CREATININE 5.16 mg/dl (0.60-1.20); POTASSIUM 3.9 mmol/L (3.5-5.1); TOTAL PROTEIN 5.8 gm/dl (6.4-8.2)
[2017-04-25] MEDS: NEPHROCAPS PO SCH (09:00)
[2017-04-25] MEDS: AMIODARONE / D5W 200 ML IV SCH (09:08)
[2017-04-25] MEDS: INSULIN ASPART 100 UNITS/ML 3 ML PEN SC SCH ×4 (09:48→20:07)
[2017-04-25] MEDS: CALCIUM ACETATE 667MG GELCAP PO SCH ×3 (09:50→16:58)
[2017-04-25] MEDS: MIDODRINE 10 MG TAB PO SCH (09:51)
[2017-04-25] MEDS: ASPIRIN 81 MG ECTAB PO SCH (09:52)
[2017-04-25] MEDS: GABAPENTIN 100 MG CAP PO SCH ×3 (09:53→22:33)
[2017-04-25] MEDS: CEROVITE ADV FORMULA TAB PO SCH (09:53)
[2017-04-25] MEDS: METOCLOPRAMIDE HCL 5 MG TAB PO SCH (09:54)
[2017-04-25] MEDS: PROSOURCE NOCARB 30ML/PKT PO SCH ×2 (09:54→22:35)
[2017-04-25] MEDS: CHOLECALCIFEROL 1000 INTER.UNIT TAB PO SCH (09:54)
--- NOTE | 2017-04-25 10:10 | Cardiology Progress Note ---
Cardiology Progress Note Date of Service Apr 25, 2017. Cardiology Progress Note Patient remains in SR. QTC is prolonged on EKG this am, but this must be interpreted keeping the RBBB in mind and is therefore stable. INR =2. Plan: DC IV amiodarone. Resume oral amiodarone, 200 mg BID for now as compared to prior dose of 200 mg daily. She is not on other AV Teri blockers due to relative hypotension in the past, and remains on midodrine for BP support to allow HD. Resume warfarin, lower dose of 2.5 mg daily compared to 4 mg for now. Goal INR 2 -3, repeat INR tomorrow.
[2017-04-25] MEDS ORDERED: [UNRECOGNIZED DRUG - REMARK] SCH (10:30)
[2017-04-25] MEDS: PIPERACILL/TAZOBAC IV 3.375 GM in DEXTROSE 5% 100ML IV SCH (10:59)
[2017-04-25] MEDS ORDERED: AMIODARONE 200 MG TAB PO ONE (11:00)
--- NOTE | 2017-04-25 12:36 | Pharmacy Progress Note ---
Pharmacy Abx Dose Short Note Date of Service Apr 25, 2017. Assessment & Plan Assessment 66 year old female receiving IV Vancomycin & Zosyn for treatment of MRSA wound & EColi in urine Cultures final Zosyn can be de-escalated to PO narrow spectrum antibiotic, awaiting ID Tamiflu for FluA + Day # 3 of antimicrobial therapy. Plan Vancomycin - continue for MRSA wound, dosed empirically based on random levels and HD sessions * Random level of 22.5 mcg/mL is therapeutic, pt due for another dose after HD today * 500 mg IV x 1 today after HD * Goal trough level for infected heel : 15 to 20 mcg/mL * Random level will be ordered prior to next HD session Zosyn - de-escalate to PO narrow spectrum antibiotic, awaiting ID -- recommend Keflex 500mg PO daily after HD Tamiflu 30mg after HD - x 5 days of therapy Pharmacy will continue to follow and will adjust dose/frequency as necessary. Thank you.
--- NOTE | 2017-04-25 15:29 | Nephrology Progress Note ---
Nephrology Progress Note Date of Service: Apr 25, 2017. Subjective 66 yo female seen for follow up of ESRD. has the flu and presented with tachycardia. heart rate under better control. coughing a lot and feels worse today with the chronic cough. with the flu as well. Objective Date Time Temp Pulse Resp B/P (MAP) Pulse Ox O2 Delivery O2 Flow Rate FiO2 04/25/17 12:20 Nasal Cannula 2.0 04/25/17 11:15 36.6 62 16 129/83 (98) 98 Nasal Cannula 2.0 04/25/17 08:20 Nasal Cannula 2.0 04/25/17 08:01 36.8 67 16 122/78 (93) 96 Nasal Cannula 2.0 04/25/17 08:00 Room Air 04/25/17 04:22 Room Air 04/25/17 03:38 36.6 64 18 93/60 (71) 92 Room Air 04/25/17 00:45 Room Air 04/24/17 23:19 36.6 62 18 92/60 (71) 93 Room Air 04/24/17 20:00 Room Air 04/24/17 19:35 37.0 64 20 101/60 (74) 91 Room Air 04/24/17 16:00 Room Air 04/24/17 15:41 37.0 68 16 128/76 (93) 95 Physical Exam: General-aaox3, obese Eyes-no scleral icterus ENT-mmm Neck-supple Lungs-decreased breath sounds at bases Heart-regular Abdomen-bs+ s/nt/nd Extremities-+1 edema Neuro-nonfocal Current Inpatient Medications Medications (Trade) Dose Ordered Sig/Jed Route Start Time Stop Time Status Last Admin Dose Admin Acetaminophen (Tylenol Tab) 650 mg Q4H PRN PO 04/23/17 12:45 05/23/17 12:44 Insulin Aspart (novoLOG ASPART) SLIDING SCALE If C... ACHS SC 04/23/17 16:00 05/23/17 15:59 Future hold 04/25/17 13:08 1 UNITS Glucose (Glucose 40% Gel) 15-30 GRAMS 15 GRAMS... UD PRN PO 04/23/17 13:00 05/23/17 12:59 Glucose (Glucose Chew Tab) 4-8 Tablets 4 Tabl... UD PRN PO 04/23/17 13:00 05/23/17 12:59 Dextrose (Dextrose 50% 50ML Syringe) 25-50ML OF 50% DW IV FOR... UD PRN IV 04/23/17 13:00 05/23/17 12:59 Glucagon (Glucagon Inj) 1 mg UD PRN SQ 04/23/17 13:00 05/23/17 12:59 Miscellaneous Information (Consult Glycemic Management Pharmacy) 1 ea UD PRN N/A 04/23/17 12:55 05/23/17 12:54 Oseltamivir Phosphate (Tamiflu Susp) 30 mg TuThSa@1600 PO 04/23/17 16:00 04/28/17 15:59 04/23/17 17:09 30 MG Miscellaneous Information (Consult) 1 ea UD PRN N/A 04/23/17 14:00 05/23/17 13:59 Aspirin (Ecotrin Tab) 81 mg QAM PO 04/24/17 09:00 05/24/17 08:59 04/25/17 09:52 81 MG Atorvastatin Calcium (Lipitor Tab) 10 mg HS PO 04/23/17 21:00 05/23/17 20:59 04/24/17 21:11 10 MG Calcium Acetate (Phoslo Cap) 667 mg TIDM PO 04/23/17 16:45 05/23/17 17:59 04/25/17 11:27 667 MG Cholecalciferol (Vitamin D Tab) 1,000 inter.unit DAILY PO 04/24/17 09:00 05/24/17 08:59 04/25/17 09:54 1,000 INTER.UNIT Gabapentin (Neurontin Cap) 100 mg TID PO 04/23/17 21:00 05/23/17 20:59 04/25/17 13:07 100 MG Metoclopramide HCl (Reglan Tab) 5 mg TuThSa@0900 PO 04/25/17 09:00 05/25/17 08:59 04/25/17 09:54 5 MG Midodrine (Proamatine Tab) 20 mg TuThSa@0800 PO 04/25/17 08:00 05/25/17 07:59 04/25/17 09:51 20 MG Senna/Docusate Sodium (Senokot S Tab) 1 tab BID PRN PO 04/23/17 14:00 05/23/17 13:59 Vitamin B Complex/ Vit C/Folic Acid (Nephrocaps) 1 cap DAILY PO 04/24/17 09:00 05/24/17 08:59 04/25/17 09:00 1 CAP Warfarin Sodium (Coumadin Tab) 4 mg DAILY@1600 PO 04/23/17 16:00 05/23/17 15:59 Future Hold 04/23/17 17:10 4 MG Miscellaneous Information (Order Awaiting Action) 1 ea QS N/A 04/23/17 16:00 05/23/17 15:59 04/24/17 23:21 1 EA Multivitamins/ Minerals (Multivitamin W/ Minerals Tab) 1 tab QAM PO 04/24/17 09:00 05/24/17 08:59 04/25/17 09:53 1 TAB Miscellaneous Information (Consult) 1 ea UD PRN N/A 04/23/17 14:15 05/23/17 14:14 Piperacillin Sod/ Tazobactam Sod 3.375 gm/Dextrose 115 ml @ 28.75 mls/ hr Q12@1000,2200 IV 04/23/17 22:00 05/03/17 21:59 04/25/17 10:59 28.75 MLS/HR Enteral Nutritional Formula (Prosource No Carb) 30 ml BID PO 04/24/17 21:00 05/24/17 20:59 04/25/17 09:54 30 ML Amiodarone HCl (Cordarone Tab) 200 mg BID PO 04/25/17 21:00 05/25/17 20:59 Warfarin Sodium (Coumadin Tab) 2.5 mg DAILY@16 PO 04/25/17 16:00 05/25/17 15:59 Vancomycin HCl 500 mg/Sodium Chloride 260 ml @ 125 mls/hr TODAY@1600 IV 04/25/17 16:00 04/25/17 18:05 Last 24 Hours Test 04/24/17 16:27 04/24/17 21:01 04/25/17 04:36 04/25/17 06:34 Bedside Glucose 137 mg/dl 119 mg/dl 114 mg/dl White Blood Count 8.21 K/uL Red Blood Count 2.94 M/uL Hemoglobin 9.7 g/dL Hematocrit 30.9 % Mean Corpuscular Volume 105.1 fL Mean Corpuscular Hemoglobin 33.0 pg Mean Corpuscular Hemoglobin Concent 31.4 g/dl RDW Standard Deviation 62.7 fL RDW Coefficient of Variation 16.4 % Platelet Count 165 K/uL Mean Platelet Volume 9.8 fL Prothrombin Time 20.7 SECONDS Prothromb Time International Ratio 2.0 Sodium Level 132 mmol/L Potassium Level 3.9 mmol/L Chloride Level 97 mmol/L Carbon Dioxide Level 28 mmol/L Anion Gap 7.0 mmol/L Blood Urea Nitrogen 27 mg/dl Creatinine 5.16 mg/dl Est Creatinine Clear Calc Drug Dose 13.6 ml/min Estimated GFR () 9.3 Estimated GFR (Non- 8.0 BUN/Creatinine Ratio 5.1 Random Glucose 101 mg/dl Calcium Level 7.7 mg/dl Magnesium Level 2.3 mg/dl Total Bilirubin 0.4 mg/dl Aspartate Amino Transf (AST/SGOT) 34 U/L Alanine Aminotransferase (ALT/SGPT) 36 U/L Alkaline Phosphatase 84 U/L Total Protein 5.8 gm/dl Albumin 2.2 gm/dl Globulin 3.6 gm/dl Albumin/Globulin Ratio 0.6 Test 04/25/17 07:27 04/25/17 09:29 04/25/17 09:57 04/25/17 11:11 Troponin I 0.039 ng/ml Bedside Glucose 128 mg/dl 160 mg/dl Random Vancomycin Level 22.5 mcg/ml Assessment & Plan ESRD-pt for dialysis tonight or tomorrow. k and volume status appropriate. continue to follow labs. dialysis three days a week. Anemia of Renal Failure-hg below 10, will give procrit today as well with dialysis.
[2017-04-25] MEDS ORDERED: EPOETIN ALFA 10,000 UNITS/ML VIAL IV. SCH (16:00)
[2017-04-25] MEDS: WARFARIN SOD 2.5 MG TAB PO SCH (16:58)
--- NOTE | 2017-04-25 17:18 | Progress Note ---
Internal Med Progress Note Date of Service: Apr 25, 2017. Provider Documentation: SUBJECTIVE: Denies chest pain or shortness of breath OBJECTIVE: General Appearance: no apparent distress, + obese Head: normocephalic, atraumatic Eyes: normal inspection,EOMI, sclerae normal ENT: hearing grossly normal, pharynx normal Neck: supple, no JVD, trachea midline Respiratory/Chest: chest non-tender, no respiratory distress, no accessory muscle use,good air entry, no wheezing Cardiovascular: heart rate in the 60s Abdomen/GI: normal bowel sounds, non tender, soft Extremities/Musculoskelatal: bilateral LE edema with very dry skin, mild erythema, Ext non-tender to palpation, Left calcaneous with ulcer with eschar Neurologic/Psych: alert, normal mood/affect, oriented x 3 ASSESSMENT & PLAN: 66 yo F with hx of paroxysmal Afib on Coumadin , ESRD on HD follows with Nephrology Dr Vera at [facility] , Type 2 DM and other medical issues sent form her Dialysis center on 04/23/17 and found to be in rapid afib/Flutter. Patient converted from AFL RVR with SR overnight at 20:55 on 04/23/17 on amiodarone infusion. In regards to the the treatment for the resolved rapid afib/Flutter, cariology has discontinued IV amiodarone; Resumed oral amiodarone, 200 mg BID for now as compared to prior dose of 200 mg daily; Resume warfarin, lower dose of 2.5 mg daily compared to 4 mg for now. Goal INR 2-3, repeat INR tomorrow Sources of infection: stage 2 buttock pressure ulcer stage 2 left heel ulcer Wound culture with MRSA - Continue Vancomycin Urine culture with pansensitive E.coli - Stop Zosyn and de-escalate to Keflex 500 mg daily after dialysis INFLUENZA A POSITIVE: Continue Tamiflu ESRD ON HD : s/p dialysis on 04/24/17 plan to receive dialysis on 04/25/17 patient also receiving erythropoietin as ordered by nephrology service TYPE 2 DM : poorly controlled , last hb A1c > 10 [facility] for glycemic management PT evaluation 04/24/17: required assist with bed mobility and transfer, bed<--> chair. Skilled, inpatient P.T. currently does not appear indicated FULL CODE DVT PROPHYLAXIS: Coumadin Vital Signs: Date Time Temp Pulse Resp B/P (MAP) Pulse Ox O2 Delivery O2 Flow Rate FiO2 04/25/17 16:42 37.0 76 22 129/68 (88) 93 04/25/17 12:20 Nasal Cannula 2.0 04/25/17 11:15 36.6 62 16 129/83 (98) 98 Nasal Cannula 2.0 04/25/17 08:20 Nasal Cannula 2.0 04/25/17 08:01 36.8 67 16 122/78 (93) 96 Nasal Cannula 2.0 04/25/17 08:00 Room Air 04/25/17 04:22 Room Air 04/25/17 03:38 36.6 64 18 93/60 (71) 92 Room Air 04/25/17 00:45 Room Air 04/24/17 23:19 36.6 62 18 92/60 (71) 93 Room Air 04/24/17 20:00 Room Air 04/24/17 19:35 37.0 64 20 101/60 (74) 91 Room Air Lab Results: Results Past 24 Hours Test 04/24/17 21:01 04/25/17 04:36 04/25/17 06:34 04/25/17 07:27 Range/Units Bedside Glucose 119 114 70-90 mg/dl White Blood Count 8.21 4.8-10.8 K/uL Red Blood Count 2.94 4.2-5.4 M/uL Hemoglobin 9.7 12.0-16.0 g/dL Hematocrit 30.9 37-47 % Mean Corpuscular Volume 105.1 80-100 fL Mean Corpuscular Hemoglobin 33.0 25-34 pg Mean Corpuscular Hemoglobin Concent 31.4 32-36 g/dl RDW Standard Deviation 62.7 36.4-46.3 fL RDW Coefficient of Variation 16.4 11.5-14.5 % Platelet Count 165 130-400 K/uL Mean Platelet Volume 9.8 7.4-10.4 fL Prothrombin Time 20.7 9.0-12.0 SECONDS Prothromb Time International Ratio 2.0 0.9-1.1 Sodium Level 132 136-145 mmol/L Potassium Level 3.9 3.5-5.1 mmol/L Chloride Level 97 98-107 mmol/L Carbon Dioxide Level 28 21-32 mmol/L Anion Gap 7.0 3-11 mmol/L Blood Urea Nitrogen 27 7-18 mg/dl Creatinine 5.16 0.60-1.20 mg/dl Est Creatinine Clear Calc Drug Dose 13.6 ml/min Estimated GFR () 9.3 Estimated GFR (Non- 8.0 BUN/Creatinine Ratio 5.1 10-20 Random Glucose 101 70-99 mg/dl Calcium Level 7.7 8.5-10.1 mg/dl Magnesium Level 2.3 1.8-2.4 mg/dl Total Bilirubin 0.4 0.2-1 mg/dl Aspartate Amino Transf (AST/SGOT) 34 15-37 U/L Alanine Aminotransferase (ALT/SGPT) 36 12-78 U/L Alkaline Phosphatase 84 45-117 U/L Total Protein 5.8 6.4-8.2 gm/dl Albumin 2.2 3.4-5.0 gm/dl Globulin 3.6 2.5-4.0 gm/dl Albumin/Globulin Ratio 0.6 0.9-2 Troponin I 0.039 0-0.045 ng/ml Test 04/25/17 09:29 04/25/17 09:57 04/25/17 11:11 04/25/17 16:08 Range/Units Bedside Glucose 128 160 113 70-90 mg/dl Random Vancomycin Level 22.5 mcg/ml
[2017-04-25] MEDS ORDERED: CEPHALEXIN MONOHYDRATE 500 MG CAP PO SCH (17:30)
[2017-04-25] MEDS: OSELTAMIVIR PHOSPHATE SUSP 30 MG/5 ML UDP PO SCH (18:17)
[2017-04-25] MEDS: VANCOMYCIN INJ 500 MG in SODIUM CHLORIDE 0.9% 250ML 250 ML IV SCH ×2 (18:17→22:33)
[2017-04-25] MEDS: AMIODARONE 200 MG TAB PO SCH (22:34)
[2017-04-25] MEDS: ATORVASTATIN 10 MG TAB PO SCH (22:34)
[2017-04-26] VITALS (7 sets, daily range): BP systolic 103–128; BP diastolic 64–79; PULSE 60–66; TEMP 36.6–37; O2SAT 93–98
[2017-04-26 07:25] LABS: HEMATOCRIT 30.4 % (37-47); HEMOGLOBIN 9.6 g/dL (12.0-16.0); MEAN CELL VOLUME 103.8 fL (80-100); MEAN CORPUSCULAR HEMOGLOBIN 32.8 pg (25-34); MEAN CORPUSCULAR HGB CONC 31.6 g/dl (32-36); MEAN PLATELET VOLUME 9.4 fL (7.4-10.4); PLATELET COUNT 157 K/uL (130-400); RED CELL DISTRIBUTION WIDTH CV 16.2 % (11.5-14.5); WHITE BLOOD COUNT 7.92 K/uL (4.8-10.8)
[2017-04-26 07:42] LABS: INR 1.7 (0.9-1.1)
[2017-04-26 07:47] LABS: CALCIUM 7.8 mg/dl (8.5-10.1); CREATININE 4.3 mg/dl (0.60-1.20); POTASSIUM 3.9 mmol/L (3.5-5.1)
[2017-04-26] MEDS: INSULIN ASPART 100 UNITS/ML 3 ML PEN SC SCH ×4 (08:13→20:34)
[2017-04-26] MEDS: AMIODARONE 200 MG TAB PO SCH ×2 (08:15→19:53)
[2017-04-26] MEDS: CEROVITE ADV FORMULA TAB PO SCH (08:15)
[2017-04-26] MEDS: CALCIUM ACETATE 667MG GELCAP PO SCH ×3 (08:15→16:17)
[2017-04-26] MEDS: ASPIRIN 81 MG ECTAB PO SCH (08:15)
[2017-04-26] MEDS: GABAPENTIN 100 MG CAP PO SCH ×3 (08:16→19:52)
[2017-04-26] MEDS: NEPHROCAPS PO SCH (08:16)
[2017-04-26] MEDS: PROSOURCE NOCARB 30ML/PKT PO SCH ×3 (08:16→19:55)
[2017-04-26] MEDS: CHOLECALCIFEROL 1000 INTER.UNIT TAB PO SCH (08:17)
--- NOTE | 2017-04-26 11:02 | Progress Note ---
Subjective Date of Service: Apr 26, 2017. Subjective pt oob to chair, working with PT, wound culture foot with MRSA - highly resistant. urine culture with E. coli, unclear significance with > 30 ep cells on UA, has been treated with zosyn, now stopped. remains on tamiflu for Influenza A. afebrile. remains with HD. wbc nml. changed to po keflex yesterday by primary, tolerating. follows with wound center in [place]. Problem List Medical Problems: (1) Altered mental status Status: Acute (2) Ambulatory dysfunction Status: Acute (3) Atrial flutter Status: Acute (4) Atrial flutter with rapid ventricular response Status: Acute (5) Atrial flutter with rapid ventricular response Status: Acute (6) Bronchitis Status: Acute (7) Chronic renal failure Status: Acute (8) Fracture of distal fibula Status: Acute (9) Fracture of malleolus of right ankle Status: Acute (10) Leukocytosis Status: Acute (11) Pneumonia Status: Acute (12) Pressure ulcer of buttock Status: Acute (13) Pressure ulcer of heel Status: Acute (14) SVT (supraventricular tachycardia) Status: Acute (15) Tibia fracture Status: Acute (16) Weakness Status: Acute Objective Vital Signs Date Time Temp Pulse Resp B/P (MAP) Pulse Ox O2 Delivery O2 Flow Rate FiO2 04/26/17 10:49 36.9 61 20 108/64 (79) 95 Nasal Cannula 2.0 04/26/17 08:00 Room Air 04/26/17 07:41 37.0 61 22 128/70 (89) 98 Nasal Cannula 2.0 04/26/17 04:00 Room Air 04/26/17 03:24 36.9 66 16 121/75 (90) 95 04/26/17 00:03 37.0 65 16 125/79 (94) 93 1.0 04/26/17 00:00 Room Air 04/25/17 22:15 57 86/51 04/25/17 22:15 36.7 57 108/58 (75) 04/25/17 22:00 59 91/53 04/25/17 21:45 61 97/55 04/25/17 21:30 63 99/57 04/25/17 21:15 61 102/58 04/25/17 21:00 60 94/59 04/25/17 20:45 60 96/57 04/25/17 20:30 60 84/56 04/25/17 20:15 61 88/53 04/25/17 20:00 Room Air 04/25/17 20:00 58 88/58 04/25/17 19:45 58 94/55 04/25/17 19:38 36.7 74 18 108/64 (79) 93 04/25/17 19:30 58 103/55 04/25/17 19:15 36.8 58 92/59 (70) 04/25/17 19:15 59 99/57 04/25/17 16:42 37.0 76 22 129/68 (88) 93 04/25/17 16:00 Room Air 04/25/17 12:20 Nasal Cannula 2.0 04/25/17 11:15 36.6 62 16 129/83 (98) 98 Nasal Cannula 2.0 Laboratory Results Item Value Date Time Gram Stain - Final Complete 04/23/17 1625 Ulcer Foot Urine Culture - Final Complete 04/23/17 1625 Urine , Clean Catch Escherichia Coli Last 24 Hours Test 04/25/17 11:11 04/25/17 16:08 04/25/17 19:57 04/26/17 06:50 Bedside Glucose 160 mg/dl 113 mg/dl 98 mg/dl 92 mg/dl Test 04/26/17 07:04 White Blood Count 7.92 K/uL Red Blood Count 2.93 M/uL Hemoglobin 9.6 g/dL Hematocrit 30.4 % Mean Corpuscular Volume 103.8 fL Mean Corpuscular Hemoglobin 32.8 pg Mean Corpuscular Hemoglobin Concent 31.6 g/dl RDW Standard Deviation 61.0 fL RDW Coefficient of Variation 16.2 % Platelet Count 157 K/uL Mean Platelet Volume 9.4 fL Prothrombin Time 17.7 SECONDS Prothromb Time International Ratio 1.7 Sodium Level 136 mmol/L Potassium Level 3.9 mmol/L Chloride Level 102 mmol/L Carbon Dioxide Level 28 mmol/L Anion Gap 6.0 mmol/L Blood Urea Nitrogen 20 mg/dl Creatinine 4.30 mg/dl Est Creatinine Clear Calc Drug Dose 15.6 ml/min Estimated GFR () 11.6 Estimated GFR (Non- 10.0 BUN/Creatinine Ratio 4.7 Random Glucose 93 mg/dl Calcium Level 7.8 mg/dl Magnesium Level 2.3 mg/dl Assessment and Plan (1) Diabetic foot ulcer Assessment & Plan: would suggest changing to zyvox 600mg po bid as she is growing MRSA from foot, keflex resistant. Alternative would be dosed vanco at HD. Will need follow up with wound center in [place]. would give 14 days. She did receive treatment for cystitis with zosyn, would not suggest additional abx for this. (2) Influenza A
[2017-04-26] MEDS ORDERED: NURSING VERBAL MED ORDER ONE (13:00)
[2017-04-26] MEDS ORDERED: COLLAGENASE OINT 30 GM TUBE EXT PRN (13:30)
--- NOTE | 2017-04-26 14:12 | Wound Consultation: Inpatient ---
Wound Consultation Date of Consultation: Apr 26, 2017. Attending Physician: Cayden Mcdaniels M.D. Reason for Consultation: Ulceration left heel History of Present Illness Patient was recently admitted to [facility] for control of atrial flutter. Patient states she's had an ulceration on her left heel on and off for many years. Patient states he recently recurred approximately 2 weeks ago. Patient denies any known trauma to this area or change in footwear. Patient denies any fever chills or night sweats. Patient denies any increased pain at this site. Patient denies any current chest pain shortness of breath abdominal discomfort nausea or vomiting. Patient denies any other systemic complaints at this time. Patient does not recall any ulcerations on the buttocks area either. Family History Diabetes mellitus FH: pancreatic cancer Social History Smoking Status: Never Smoker Smokeless Tobacco Use: No Alcohol Use: none Drug Use: none Marital Status: Housing Status: assisted Occupation Status: retired Allergies Coded Allergies: No Known Allergies (Unverified , 04/23/17) Home Medications Scheduled Amiodarone Hcl (Cordarone), 200 MG PO QAM Aspirin (Aspirin Dr), 81 MG PO QAM Atorvastatin (Lipitor), 10 MG PO HS Calcium Acetate (Phosphate Bin (Phoslo 667 Mg), 1 CAP PO TIDM Cholecalciferol (Vitamin D3), 1,000 UNITS PO DAILY Ferric Citrate (Auryxia), 210 MG PO BID Gabapentin (Gabapentin), 100 MG PO TID Glipizide (Glipizide Er), 5 MG PO DAILY Metoclopramide Hcl (Reglan), 5 MG PO UD Midodrine Hcl (Midodrine Hcl), 20 MG PO UD Multiple Vitamins W/ Minerals (Ocuvite Lutein), 1 CAP PO DAILY Vitamin B Cmplx/Vitc/Folic Ac (Nephrocaps), 1 CAP PO DAILY Warfarin Sod (Coumadin), 4 MG PO DAILY Scheduled PRN Senna/Docusate Sod (Senokot S), 1 TAB PO BID PRN for Constipation Inpatient Medications Current Inpatient Medications Medications (Trade) Dose Ordered Sig/Jed Route Start Time Stop Time Status Last Admin Dose Admin Acetaminophen (Tylenol Tab) 650 mg Q4H PRN PO 04/23/17 12:45 05/23/17 12:44 Insulin Aspart (novoLOG ASPART) SLIDING SCALE If C... ACHS SC 04/23/17 16:00 05/23/17 15:59 Future hold 04/26/17 12:25 3 UNITS Glucose (Glucose 40% Gel) 15-30 GRAMS 15 GRAMS... UD PRN PO 04/23/17 13:00 05/23/17 12:59 Glucose (Glucose Chew Tab) 4-8 Tablets 4 Tabl... UD PRN PO 04/23/17 13:00 05/23/17 12:59 Dextrose (Dextrose 50% 50ML Syringe) 25-50ML OF 50% DW IV FOR... UD PRN IV 04/23/17 13:00 05/23/17 12:59 Glucagon (Glucagon Inj) 1 mg UD PRN SQ 04/23/17 13:00 05/23/17 12:59 Miscellaneous Information (Consult Glycemic Management Pharmacy) 1 ea UD PRN N/A 04/23/17 12:55 05/23/17 12:54 Oseltamivir Phosphate (Tamiflu Susp) 30 mg TuThSa@1600 PO 04/23/17 16:00 04/28/17 15:59 04/25/17 18:17 30 MG Miscellaneous Information (Consult) 1 ea UD PRN N/A 04/23/17 14:00 05/23/17 13:59 Aspirin (Ecotrin Tab) 81 mg QAM PO 04/24/17 09:00 05/24/17 08:59 04/26/17 08:15 81 MG Atorvastatin Calcium (Lipitor Tab) 10 mg HS PO 04/23/17 21:00 05/23/17 20:59 04/25/17 22:34 10 MG Calcium Acetate (Phoslo Cap) 667 mg TIDM PO 04/23/17 16:45 05/23/17 17:59 04/26/17 12:22 667 MG Cholecalciferol (Vitamin D Tab) 1,000 inter.unit DAILY PO 04/24/17 09:00 05/24/17 08:59 04/26/17 08:17 1,000 INTER.UNIT Gabapentin (Neurontin Cap) 100 mg TID PO 04/23/17 21:00 05/23/17 20:59 04/26/17 08:16 100 MG Metoclopramide HCl (Reglan Tab) 5 mg TuThSa@0900 PO 04/25/17 09:00 05/25/17 08:59 04/25/17 09:54 5 MG Midodrine (Proamatine Tab) 20 mg TuThSa@0800 PO 04/25/17 08:00 05/25/17 07:59 04/25/17 09:51 20 MG Senna/Docusate Sodium (Senokot S Tab) 1 tab BID PRN PO 04/23/17 14:00 05/23/17 13:59 Vitamin B Complex/ Vit C/Folic Acid (Nephrocaps) 1 cap DAILY PO 04/24/17 09:00 05/24/17 08:59 04/26/17 08:16 1 CAP Warfarin Sodium (Coumadin Tab) 4 mg DAILY@1600 PO 04/23/17 16:00 05/23/17 15:59 Future Hold 04/23/17 17:10 4 MG Miscellaneous Information (Order Awaiting Action) 1 ea QS N/A 04/23/17 16:00 05/23/17 15:59 04/24/17 23:21 1 EA Multivitamins/ Minerals (Multivitamin W/ Minerals Tab) 1 tab QAM PO 04/24/17 09:00 05/24/17 08:59 04/26/17 08:15 1 TAB Enteral Nutritional Formula (Prosource No Carb) 30 ml BID PO 04/24/17 21:00 05/24/17 20:59 04/26/17 08:16 30 ML Amiodarone HCl (Cordarone Tab) 200 mg BID PO 04/25/17 21:00 05/25/17 20:59 04/26/17 08:15 200 MG Warfarin Sodium (Coumadin Tab) 2.5 mg DAILY@16 PO 04/25/17 16:00 05/25/17 15:59 04/25/17 16:58 2.5 MG Cephalexin Monohydrate (Keflex Cap) 500 mg DAILY@1730 PO 04/25/17 17:30 04/30/17 17:29 04/25/17 18:17 500 MG Collagenase (Santyl Oint) 1 appln DAILY EXT 04/27/17 09:00 05/27/17 08:59 Collagenase (Santyl Oint) 1 appln PRN PRN EXT 04/26/17 13:30 05/26/17 13:29 Physical Exam Date Time Temp Pulse Resp B/P (MAP) Pulse Ox O2 Delivery O2 Flow Rate FiO2 04/26/17 12:00 Room Air 04/26/17 10:49 36.9 61 20 108/64 (79) 95 Nasal Cannula 2.0 04/26/17 08:00 Room Air 04/26/17 07:41 37.0 61 22 128/70 (89) 98 Nasal Cannula 2.0 04/26/17 04:00 Room Air 04/26/17 03:24 36.9 66 16 121/75 (90) 95 04/26/17 00:03 37.0 65 16 125/79 (94) 93 1.0 04/26/17 00:00 Room Air 04/25/17 22:15 57 86/51 04/25/17 22:15 36.7 57 108/58 (75) 04/25/17 22:00 59 91/53 04/25/17 21:45 61 97/55 04/25/17 21:30 63 99/57 04/25/17 21:15 61 102/58 04/25/17 21:00 60 94/59 04/25/17 20:45 60 96/57 04/25/17 20:30 60 84/56 04/25/17 20:15 61 88/53 04/25/17 20:00 Room Air 04/25/17 20:00 58 88/58 04/25/17 19:45 58 94/55 04/25/17 19:38 36.7 74 18 108/64 (79) 93 04/25/17 19:30 58 103/55 04/25/17 19:15 36.8 58 92/59 (70) 04/25/17 19:15 59 99/57 04/25/17 16:42 37.0 76 22 129/68 (88) 93 04/25/17 16:00 Room Air General: The patient is lying in a hospital bed in no distress. Alert, cooperative and appropriate to all questions. HEENT: Pupils equal and reactive to light. Sclera clear, EOM intact. Neck: Supple, No JVD noted Chest: CTA in all peck. No deformity Heart: RRR without murmurs, S3, S4, thrills, rubs or heaves Back: No appreciable ulcerations are noted in either buttocks region. There is some minimal maceration and moisture noted in the coccyx region. No areas of open drainage or erythema present. Site measures approximate 6 x 10 x 0.7 cm. Extremities: Extensive deep tissue injury an ulceration is noted to the left heel. There is marginal callus and eschar formation noted. Central slough and scattered throughout. Neurological: Alert and oriented x3. No focal deficits. Laboratory Results Last 24 Hours Test 04/25/17 16:08 04/25/17 19:57 04/26/17 06:50 04/26/17 07:04 Bedside Glucose 113 mg/dl 98 mg/dl 92 mg/dl White Blood Count 7.92 K/uL Red Blood Count 2.93 M/uL Hemoglobin 9.6 g/dL Hematocrit 30.4 % Mean Corpuscular Volume 103.8 fL Mean Corpuscular Hemoglobin 32.8 pg Mean Corpuscular Hemoglobin Concent 31.6 g/dl RDW Standard Deviation 61.0 fL RDW Coefficient of Variation 16.2 % Platelet Count 157 K/uL Mean Platelet Volume 9.4 fL Prothrombin Time 17.7 SECONDS Prothromb Time International Ratio 1.7 Sodium Level 136 mmol/L Potassium Level 3.9 mmol/L Chloride Level 102 mmol/L Carbon Dioxide Level 28 mmol/L Anion Gap 6.0 mmol/L Blood Urea Nitrogen 20 mg/dl Creatinine 4.30 mg/dl Est Creatinine Clear Calc Drug Dose 15.6 ml/min Estimated GFR () 11.6 Estimated GFR (Non- 10.0 BUN/Creatinine Ratio 4.7 Random Glucose 93 mg/dl Calcium Level 7.8 mg/dl Magnesium Level 2.3 mg/dl Test 04/26/17 11:35 Bedside Glucose 134 mg/dl Assessment & Plan Assessment: Unstageable pressure ulcer left heel Plan: The site did require debridement. With patient's permission after the application of topical Xylocaine 4% injectable lidocaine 2% the site was debrided with a #5 curette, scissors and forceps. Large area of eschar along with slough and surrounding callus and eschar was removed. Some subcutaneous tissue was also removed at the base. Minimal bleeding occurred which was controlled with direct pressure. The site will be dressed today with Santyl and gauze changed on a daily basis. This will be done for the next 72 hours and then replaced with a wound VAC black foam 125 mm of negative pressure wound VAC change Saturday. Patient will continue to be monitored during hospital course and reevaluated as needed upon discharge. This represented an excisional debridement of 60 sq.cm..
[2017-04-26] MEDS: WARFARIN SOD 2.5 MG TAB PO SCH (16:15)
--- NOTE | 2017-04-26 18:54 | Cardiology Progress Note ---
Cardiology Progress Note Date of Service Apr 26, 2017. Cardiology Progress Note Telemetry reviewed. Patient remains in sinus rhythm. INR trended down to 1.7 today. Plan: Continue amiodarone 200 mg twice a day. At discharge, consider reducing to prior to hospital dose of 200 mg by mouth one time per day. Increase Coumadin back to 4 mg daily, which was her prior outpatient dose. I have ordered an extra 2 mg for today, 04/26/17.
--- NOTE | 2017-04-26 19:04 | Progress Note ---
Internal Med Progress Note Date of Service: Apr 26, 2017. Provider Documentation: SUBJECTIVE: Denies chest pain or shortness of breath OBJECTIVE: General Appearance: no apparent distress, + obese Head: normocephalic, atraumatic Eyes: normal inspection,EOMI, sclerae normal ENT: hearing grossly normal, pharynx normal Neck: supple, no JVD, trachea midline Respiratory/Chest: chest non-tender, no respiratory distress, no accessory muscle use,good air entry, no wheezing Cardiovascular: heart rate in the 60s Abdomen/GI: normal bowel sounds, non tender, soft Extremities/Musculoskelatal: bilateral LE edema with very dry skin, mild erythema Neurologic/Psych: alert, normal mood/affect, oriented x 3 ASSESSMENT & PLAN: 66 yo F with hx of paroxysmal Afib on Coumadin , ESRD on HD follows with Nephrology Dr Vera [place] [facility] [place] , Type 2 DM and other medical issues sent form her Dialysis center on 04/23/17 and found to be in rapid afib/Flutter. Patient converted from AFL RVR with SR overnight at 20:55 on 04/23/17 on amiodarone infusion. In regards to the the treatment for the resolved rapid afib/Flutter, cariology has discontinued IV amiodarone; Continue amiodarone 200 mg twice a day. At discharge, consider reducing to prior to hospital dose of 200 mg by mouth one time per day. Increase Coumadin back to 4 mg daily, which was her prior outpatient dose. an extra 2 mg Coumadin for today, 04/26/17. Sources of infection: -Urine culture with pansensitive E.coli - completed Zosyn -stage 2 buttock pressure ulcer -pressure ulcer left heel - Unstageable as per wound care physician and s/ pexcisional debridement of 60 sq.cmon 04/26/17; dressed with Santyl and gauze changed on a daily basis; dressing changes for the next 72 hours and then replaced with a wound VAC black foam 125 mm of negative pressure wound VAC -Wound culture of the pressure ulcer grew MRSA - switched from Vancomycin to Zyvox 600mg po bid on 04/26/17 as per infectious disease recommendations INFLUENZA A POSITIVE: Continue Tamiflu ESRD ON HD : patient also received erythropoietin as ordered by nephrology service TYPE 2 DM : poorly controlled , last hb A1c > 10 insulin [facility] pharmacy for glycemic management PT evaluation 04/24/17: required assist with bed mobility and transfer, bed<--> chair. Skilled, inpatient P.T. currently does not appear indicated FULL CODE DVT PROPHYLAXIS: Coumadin Disposition: with heart rate controlled, and infection being treated without fever spikes, and dialysis being given, patient's main health issues is wound care of lower extremities Vital Signs: Date Time Temp Pulse Resp B/P (MAP) Pulse Ox O2 Delivery O2 Flow Rate FiO2 04/26/17 19:03 36.6 60 20 103/68 (80) 98 Nasal Cannula 2.0 04/26/17 16:00 Room Air 04/26/17 15:07 36.6 61 18 107/69 (82) 97 Nasal Cannula 2.0 04/26/17 12:00 Room Air 04/26/17 10:49 36.9 61 20 108/64 (79) 95 Nasal Cannula 2.0 04/26/17 08:00 Room Air 04/26/17 07:41 37.0 61 22 128/70 (89) 98 Nasal Cannula 2.0 04/26/17 04:00 Room Air 04/26/17 03:24 36.9 66 16 121/75 (90) 95 04/26/17 00:03 37.0 65 16 125/79 (94) 93 1.0 04/26/17 00:00 Room Air 04/25/17 22:15 57 86/51 04/25/17 22:15 36.7 57 108/58 (75) 04/25/17 22:00 59 91/53 04/25/17 21:45 61 97/55 04/25/17 21:30 63 99/57 04/25/17 21:15 61 102/58 04/25/17 21:00 60 94/59 04/25/17 20:45 60 96/57 04/25/17 20:30 60 84/56 04/25/17 20:15 61 88/53 04/25/17 20:00 Room Air 04/25/17 20:00 58 88/58 04/25/17 19:45 58 94/55 04/25/17 19:38 36.7 74 18 108/64 (79) 93 04/25/17 19:30 58 103/55 04/25/17 19:15 36.8 58 92/59 (70) 04/25/17 19:15 59 99/57 Lab Results: Results Past 24 Hours Test 04/25/17 19:57 04/26/17 06:50 04/26/17 07:04 04/26/17 11:35 Range/Units Bedside Glucose 98 92 134 70-90 mg/dl White Blood Count 7.92 4.8-10.8 K/uL Red Blood Count 2.93 4.2-5.4 M/uL Hemoglobin 9.6 12.0-16.0 g/dL Hematocrit 30.4 37-47 % Mean Corpuscular Volume 103.8 80-100 fL Mean Corpuscular Hemoglobin 32.8 25-34 pg Mean Corpuscular Hemoglobin Concent 31.6 32-36 g/dl RDW Standard Deviation 61.0 36.4-46.3 fL RDW Coefficient of Variation 16.2 11.5-14.5 % Platelet Count 157 130-400 K/uL Mean Platelet Volume 9.4 7.4-10.4 fL Prothrombin Time 17.7 9.0-12.0 SECONDS Prothromb Time International Ratio 1.7 0.9-1.1 Sodium Level 136 136-145 mmol/L Potassium Level 3.9 3.5-5.1 mmol/L Chloride Level 102 98-107 mmol/L Carbon Dioxide Level 28 21-32 mmol/L Anion Gap 6.0 3-11 mmol/L Blood Urea Nitrogen 20 7-18 mg/dl Creatinine 4.30 0.60-1.20 mg/dl Est Creatinine Clear Calc Drug Dose 15.6 ml/min Estimated GFR () 11.6 Estimated GFR (Non- 10.0 BUN/Creatinine Ratio 4.7 10-20 Random Glucose 93 70-99 mg/dl Calcium Level 7.8 8.5-10.1 mg/dl Magnesium Level 2.3 1.8-2.4 mg/dl Test 04/26/17 16:16 Range/Units Bedside Glucose 149 70-90 mg/dl Microbiology Results 04/26/17 C.difficile Toxin B Gene (PCR) - Final, Complete No C. difficile toxin B gene detected 04/26/17 WBC Smear - Final, Resulted 04/26/17 Shiga Toxin Test, Resulted Pending 04/26/17 Stool Culture, Resulted Pending
[2017-04-26] MEDS ORDERED: WARFARIN SOD 2 MG TAB PO ONE (19:30)
[2017-04-26] MEDS: ATORVASTATIN 10 MG TAB PO SCH (19:53)
[2017-04-26] MEDS: LINEZOLID 600 MG TAB PO SCH (19:53)
[2017-04-27] VITALS (23 sets, daily range): BP systolic 106–171; BP diastolic 52–86; PULSE 54–70; TEMP 36.4–36.9; O2SAT 93–96
[2017-04-27] MEDS: CALCIUM ACETATE 667MG GELCAP PO SCH ×3 (07:47→17:38)
[2017-04-27 07:49] LABS: HEMATOCRIT 30.5 % (37-47); HEMOGLOBIN 9.7 g/dL (12.0-16.0); MEAN CELL VOLUME 103.7 fL (80-100); MEAN CORPUSCULAR HGB CONC 31.8 g/dl (32-36); MEAN PLATELET VOLUME 9.4 fL (7.4-10.4); NUCLEATED RED BLOOD CELL ABS 0.06 K/uL (0-0); PLATELET COUNT 187 K/uL (130-400); RED CELL DISTRIBUTION WIDTH SD 60.3 fL (36.4-46.3); WHITE BLOOD COUNT 7.08 K/uL (4.8-10.8)
[2017-04-27] MEDS: MIDODRINE 10 MG TAB PO SCH (07:49)
[2017-04-27] MEDS: CEROVITE ADV FORMULA TAB PO SCH (07:50)
[2017-04-27] MEDS: AMIODARONE 200 MG TAB PO SCH ×2 (07:50→21:05)
[2017-04-27] MEDS: COLLAGENASE OINT 30 GM TUBE EXT SCH (07:50)
[2017-04-27] MEDS: ASPIRIN 81 MG ECTAB PO SCH (07:50)
[2017-04-27] MEDS: GABAPENTIN 100 MG CAP PO SCH ×3 (07:51→21:06)
[2017-04-27] MEDS: NEPHROCAPS PO SCH (07:51)
[2017-04-27] MEDS: PROSOURCE NOCARB 30ML/PKT PO SCH ×2 (07:52→21:06)
[2017-04-27] MEDS: LINEZOLID 600 MG TAB PO SCH ×2 (07:53→21:06)
[2017-04-27] MEDS: METOCLOPRAMIDE HCL 5 MG TAB PO SCH (07:53)
[2017-04-27] MEDS: CHOLECALCIFEROL 1000 INTER.UNIT TAB PO SCH (07:53)
[2017-04-27] MEDS: INSULIN ASPART 100 UNITS/ML 3 ML PEN SC SCH ×4 (08:00→21:00)
[2017-04-27 08:05] LABS: INR 1.6 (0.9-1.1)
[2017-04-27 08:56] LABS: CALCIUM 8.3 mg/dl (8.5-10.1); CREATININE 5.31 mg/dl (0.60-1.20)
[2017-04-27] MEDS ORDERED: EPOETIN ALFA 10,000 UNITS/ML VIAL IV. ONE (09:00)
--- NOTE | 2017-04-27 14:10 | Pharmacy Progress Note ---
Pharmacy Glycemic Short Note 2 Date of Service Apr 27, 2017. OUTPATIENT ANTIDIABETIC REGIMEN: * glipizide ER 5 mg PO daily ASSESSMENT: * Ms Ramos is a 66 y/o F with a PMH of ESRD on dialysis, HTN, and Aflutter who presented with chest pain. She continues on the same regimen of Novolog correction factor of 30 and carbohydrate ratio of 10. The patient's blood sugars range from 93-149 yesterday and she received 10 units of Novolog. * Fasting this morning is 83 mg/dL similar to other mornings. Continue regimen. PLAN FOR INPATIENT GLYCEMIC CONTROL: * Hold outpatient oral diabetes medications * Basal insulin * Lantus -- units SQ BID * Bolus insulin * NovoLog per scale ACHS or Q6hrs while NPO * Goal Range: Low 110 mg/dL - High 140 mg/dL * Correction Factor: 30 mg/dL/unit * Nutritional / Prandial insulin per carb ratio of 1 unit per 10 grams CHO consumed PLAN FOR DISCHARGE: * see previous note from 04/23/17
--- NOTE | 2017-04-27 16:05 | Nephrology Progress Note ---
Nephrology Progress Note Date of Service: Apr 27, 2017. Subjective tolerated HD well though her arterial needle clotted; lost about 250-350 cc blood per nurse estimate; set up again and finished tx. seen as she moved up to 4; breathing well; no pain or N. L heel would vac planned 04/29 Objective Date Time Temp Pulse Resp B/P (MAP) Pulse Ox O2 Delivery O2 Flow Rate FiO2 04/27/17 15:36 36.5 55 20 93 2.0 04/27/17 14:15 55 147/52 04/27/17 14:00 55 146/73 04/27/17 13:45 54 149/72 04/27/17 13:30 54 149/76 04/27/17 13:15 58 161/66 04/27/17 13:04 55 141/66 04/27/17 12:00 56 152/75 04/27/17 12:00 Room Air 04/27/17 11:45 70 134/52 04/27/17 11:30 58 125/65 04/27/17 11:15 56 169/86 04/27/17 11:00 55 122/86 04/27/17 10:45 57 171/86 04/27/17 10:30 67 169/84 04/27/17 10:20 60 166/82 04/27/17 08:00 Room Air 04/27/17 08:00 36.5 65 20 134/70 (91) 93 Nasal Cannula 2.0 04/27/17 04:00 Nasal Cannula 2.0 04/27/17 02:55 36.9 59 21 106/63 (77) 95 Nasal Cannula 1.5 04/27/17 00:00 Nasal Cannula 2.0 04/26/17 23:21 36.9 64 26 103/65 (78) 96 Nasal Cannula 1.5 04/26/17 20:00 Nasal Cannula 04/26/17 19:03 36.6 60 20 103/68 (80) 98 Nasal Cannula 2.0 04/26/17 16:00 Room Air Physical Exam: General-aaox3, obese, on 02NC, nad Eyes-no scleral icterus ENT-mmm Neck-supple Lungs-decreased breath sounds at bases Heart-regularly spaced in 50s Abdomen-bs+ s/nt/nd Extremities-+2 indurated edema w/ L heel wound wrapped Neuro-lerma, fluent speech Current Inpatient Medications Medications (Trade) Dose Ordered Sig/Jed Route Start Time Stop Time Status Last Admin Dose Admin Acetaminophen (Tylenol Tab) 650 mg Q4H PRN PO 04/23/17 12:45 05/23/17 12:44 Insulin Aspart (novoLOG ASPART) SLIDING SCALE If C... ACHS SC 04/23/17 16:00 05/23/17 15:59 Future hold 04/27/17 08:00 4 UNITS Glucose (Glucose 40% Gel) 15-30 GRAMS 15 GRAMS... UD PRN PO 04/23/17 13:00 05/23/17 12:59 Glucose (Glucose Chew Tab) 4-8 Tablets 4 Tabl... UD PRN PO 04/23/17 13:00 05/23/17 12:59 Dextrose (Dextrose 50% 50ML Syringe) 25-50ML OF 50% DW IV FOR... UD PRN IV 04/23/17 13:00 05/23/17 12:59 Glucagon (Glucagon Inj) 1 mg UD PRN SQ 04/23/17 13:00 05/23/17 12:59 Miscellaneous Information (Consult Glycemic Management Pharmacy) 1 ea UD PRN N/A 04/23/17 12:55 05/23/17 12:54 Oseltamivir Phosphate (Tamiflu Susp) 30 mg TuThSa@1600 PO 04/23/17 16:00 04/28/17 15:59 04/25/17 18:17 30 MG Aspirin (Ecotrin Tab) 81 mg QAM PO 04/24/17 09:00 05/24/17 08:59 04/27/17 07:50 81 MG Atorvastatin Calcium (Lipitor Tab) 10 mg HS PO 04/23/17 21:00 05/23/17 20:59 04/26/17 19:53 10 MG Calcium Acetate (Phoslo Cap) 667 mg TIDM PO 04/23/17 16:45 05/23/17 17:59 04/27/17 07:47 667 MG Cholecalciferol (Vitamin D Tab) 1,000 inter.unit DAILY PO 04/24/17 09:00 05/24/17 08:59 04/27/17 07:53 1,000 INTER.UNIT Gabapentin (Neurontin Cap) 100 mg TID PO 04/23/17 21:00 05/23/17 20:59 04/27/17 07:51 100 MG Metoclopramide HCl (Reglan Tab) 5 mg TuThSa@0900 PO 04/25/17 09:00 05/25/17 08:59 04/27/17 07:53 5 MG Midodrine (Proamatine Tab) 20 mg TuThSa@0800 PO 04/25/17 08:00 05/25/17 07:59 04/27/17 07:49 20 MG Senna/Docusate Sodium (Senokot S Tab) 1 tab BID PRN PO 04/23/17 14:00 05/23/17 13:59 Vitamin B Complex/ Vit C/Folic Acid (Nephrocaps) 1 cap DAILY PO 04/24/17 09:00 05/24/17 08:59 04/27/17 07:51 1 CAP Miscellaneous Information (Order Awaiting Action) 1 ea QS N/A 04/23/17 16:00 05/23/17 15:59 04/24/17 23:21 1 EA Multivitamins/ Minerals (Multivitamin W/ Minerals Tab) 1 tab QAM PO 04/24/17 09:00 05/24/17 08:59 04/27/17 07:50 1 TAB Enteral Nutritional Formula (Prosource No Carb) 30 ml BID PO 04/24/17 21:00 05/24/17 20:59 04/26/17 08:16 30 ML Amiodarone HCl (Cordarone Tab) 200 mg BID PO 04/25/17 21:00 05/25/17 20:59 04/27/17 07:50 200 MG Collagenase (Santyl Oint) 1 appln DAILY EXT 04/27/17 09:00 05/27/17 08:59 04/27/17 07:50 1 APPLN Collagenase (Santyl Oint) 1 appln PRN PRN EXT 04/26/17 13:30 05/26/17 13:29 Linezolid (Zyvox Tab) 600 mg BID PO 04/26/17 21:00 05/06/17 20:59 04/27/17 07:53 600 MG Warfarin Sodium (Coumadin Tab) 4 mg DAILY@16 PO 04/27/17 16:00 05/27/17 15:59 Last 24 Hours Test 04/26/17 16:16 04/26/17 20:18 04/27/17 06:59 04/27/17 07:30 Bedside Glucose 149 mg/dl 113 mg/dl 83 mg/dl White Blood Count 7.08 K/uL Red Blood Count 2.94 M/uL Hemoglobin 9.7 g/dL Hematocrit 30.5 % Mean Corpuscular Volume 103.7 fL Mean Corpuscular Hemoglobin 33.0 pg Mean Corpuscular Hemoglobin Concent 31.8 g/dl RDW Standard Deviation 60.3 fL RDW Coefficient of Variation 16.0 % Platelet Count 187 K/uL Mean Platelet Volume 9.4 fL Nucleated RBC Absolute Count (auto) 0.06 K/uL Nucleated Red Blood Cells % 0.9 % Prothrombin Time 16.5 SECONDS Prothromb Time International Ratio 1.6 Sodium Level 136 mmol/L Potassium Level 4.0 mmol/L Chloride Level 100 mmol/L Carbon Dioxide Level 27 mmol/L Anion Gap 9.0 mmol/L Blood Urea Nitrogen 25 mg/dl Creatinine 5.31 mg/dl Est Creatinine Clear Calc Drug Dose 13.4 ml/min Estimated GFR () 9.0 Estimated GFR (Non- 7.7 BUN/Creatinine Ratio 4.6 Random Glucose 73 mg/dl Calcium Level 8.3 mg/dl Magnesium Level 2.4 mg/dl Test 04/27/17 11:21 04/27/17 11:25 Bedside Glucose 100 mg/dl Hepatitis B Surface Antigen NEG Assessment & Plan 66 yo female seen for follow up of ESRD. has the flu and presented with tachycardia. heart rate now controlled; today no c/o chronic cough ESRD-routine HD today; went well > k and volume status appropriate. continue to follow labs. dialysis three days a week> next 04/30. Anemia of Renal Failure- w/ hg below 10, had procrit today with dialysis. recheck cbc ordered for am given clotted set up today; w/ stable VS and prior stable hgb no indication to check sooner
--- NOTE | 2017-04-27 16:39 | Progress Note ---
Internal Med Progress Note Date of Service: Apr 27, 2017. Provider Documentation: SUBJECTIVE: Denies chest pain or shortness of breath OBJECTIVE: General Appearance: no apparent distress, + obese Head: normocephalic, atraumatic Eyes: normal inspection,EOMI, sclerae normal ENT: hearing grossly normal, pharynx normal Neck: supple, no JVD, trachea midline Respiratory/Chest: chest non-tender, no respiratory distress, no accessory muscle use,good air entry, no wheezing Cardiovascular: heart rate in the 60s Abdomen/GI: normal bowel sounds, non tender, soft Extremities/Musculoskelatal: bilateral LE edema with very dry skin, mild erythema Neurologic/Psych: alert, normal mood/affect, oriented x 3 ASSESSMENT & PLAN: 66 yo F with hx of paroxysmal Afib on Coumadin , ESRD on HD follows with Nephrology Dr Vera at [facility] , Type 2 DM and other medical issues sent form her Dialysis center on 04/23/17 and found to be in rapid afib/Flutter. Patient converted from AFL RVR with SR overnight at 20:55 on 04/23/17 on amiodarone infusion. In regards to the the treatment for the resolved rapid afib/Flutter, cariology has discontinued IV amiodarone -Continue amiodarone 200 mg twice a day. At discharge, consider reducing to prior to hospital dose of 200 mg by mouth one time per day. -INR 1.6 after various changes to Coumadin made by cardiology service. Continue original home dose Coumadin 4 mg daily Sources of infection: -Urine culture with pansensitive E.coli - completed Zosyn -stage 2 buttock pressure ulcer -pressure ulcer left heel - Unstageable as per wound care physician and s/p excisional debridement of 60 sq.cmon 04/26/17; dressed with Santyl and gauze changed on a daily basis; wound VAC planned for Saturday04/29/17 -Wound culture of the pressure ulcer grew MRSA - switched from Vancomycin to Zyvox 600mg po bid on 04/26/17 as per infectious disease recommendations INFLUENZA A POSITIVE: Continue Tamiflu from 04/23/17 to 04/28/17 ESRD ON HD : patient also received erythropoietin as ordered by nephrology service ESRD-routine HD today; dialysis three days a week; next dialysis session is 04/30. TYPE 2 DM : poorly controlled , last hb A1c > 10 insulin [facility] for glycemic management PT evaluation 04/24/17: required assist with bed mobility and transfer, bed<--> chair. Skilled, inpatient P.T. currently does not appear indicated FULL CODE DVT PROPHYLAXIS: Coumadin Disposition: with heart rate controlled, and infection being treated without fever spikes, and dialysis being given, patient's main health issues is wound care of lower extremities, wound VAC planned for Saturday04/29/17 as per wound care physician notes Vital Signs: Date Time Temp Pulse Resp B/P (MAP) Pulse Ox O2 Delivery O2 Flow Rate FiO2 04/27/17 15:59 36.4 58 18 129/82 (98) 95 Nasal Cannula 2.0 04/27/17 15:36 36.5 55 20 93 2.0 04/27/17 14:15 55 147/52 04/27/17 14:00 55 146/73 04/27/17 13:45 54 149/72 04/27/17 13:30 54 149/76 04/27/17 13:15 58 161/66 04/27/17 13:04 55 141/66 04/27/17 12:00 56 152/75 04/27/17 12:00 Room Air 04/27/17 11:45 70 134/52 04/27/17 11:30 58 125/65 04/27/17 11:15 56 169/86 04/27/17 11:00 55 122/86 04/27/17 10:45 57 171/86 04/27/17 10:30 67 169/84 04/27/17 10:20 60 166/82 04/27/17 08:00 Room Air 04/27/17 08:00 36.5 65 20 134/70 (91) 93 Nasal Cannula 2.0 04/27/17 04:00 Nasal Cannula 2.0 04/27/17 02:55 36.9 59 21 106/63 (77) 95 Nasal Cannula 1.5 04/27/17 00:00 Nasal Cannula 2.0 04/26/17 23:21 36.9 64 26 103/65 (78) 96 Nasal Cannula 1.5 04/26/17 20:00 Nasal Cannula 04/26/17 19:03 36.6 60 20 103/68 (80) 98 Nasal Cannula 2.0 Lab Results: Results Past 24 Hours Test 04/26/17 20:18 04/27/17 06:59 04/27/17 07:30 04/27/17 11:21 Range/Units Bedside Glucose 113 83 100 70-90 mg/dl White Blood Count 7.08 4.8-10.8 K/uL Red Blood Count 2.94 4.2-5.4 M/uL Hemoglobin 9.7 12.0-16.0 g/dL Hematocrit 30.5 37-47 % Mean Corpuscular Volume 103.7 80-100 fL Mean Corpuscular Hemoglobin 33.0 25-34 pg Mean Corpuscular Hemoglobin Concent 31.8 32-36 g/dl RDW Standard Deviation 60.3 36.4-46.3 fL RDW Coefficient of Variation 16.0 11.5-14.5 % Platelet Count 187 130-400 K/uL Mean Platelet Volume 9.4 7.4-10.4 fL Nucleated RBC Absolute Count (auto) 0.06 0-0 K/uL Nucleated Red Blood Cells % 0.9 % Prothrombin Time 16.5 9.0-12.0 SECONDS Prothromb Time International Ratio 1.6 0.9-1.1 Sodium Level 136 136-145 mmol/L Potassium Level 4.0 3.5-5.1 mmol/L Chloride Level 100 98-107 mmol/L Carbon Dioxide Level 27 21-32 mmol/L Anion Gap 9.0 3-11 mmol/L Blood Urea Nitrogen 25 7-18 mg/dl Creatinine 5.31 0.60-1.20 mg/dl Est Creatinine Clear Calc Drug Dose 13.4 ml/min Estimated GFR () 9.0 Estimated GFR (Non- 7.7 BUN/Creatinine Ratio 4.6 10-20 Random Glucose 73 70-99 mg/dl Calcium Level 8.3 8.5-10.1 mg/dl Magnesium Level 2.4 1.8-2.4 mg/dl Test 04/27/17 11:25 Range/Units Hepatitis B Surface Antigen NEG NEG
[2017-04-27] MEDS: WARFARIN SOD 4 MG TAB PO SCH (17:01)
[2017-04-27] MEDS: OSELTAMIVIR PHOSPHATE SUSP 30 MG/5 ML UDP PO SCH (18:22)
[2017-04-27] MEDS: ATORVASTATIN 10 MG TAB PO SCH (21:06)
[2017-04-28 06:00] LABS: HEMATOCRIT 32.3 % (37-47); MEAN CELL VOLUME 103.9 fL (80-100); MEAN CORPUSCULAR HEMOGLOBIN 32.2 pg (25-34); MEAN PLATELET VOLUME 9.8 fL (7.4-10.4); NUCLEATED RED BLOOD CELL ABS 0.08 K/uL (0-0); PLATELET COUNT 205 K/uL (130-400); RED CELL DISTRIBUTION WIDTH CV 16.4 % (11.5-14.5); RED CELL DISTRIBUTION WIDTH SD 60.4 fL (36.4-46.3); WHITE BLOOD COUNT 7.82 K/uL (4.8-10.8)
[2017-04-28 06:07] LABS: INR 1.7 (0.9-1.1)
[2017-04-28 07:42] VITALS: BP 139/77; PULSE 60; TEMP 36.4; O2SAT 90
[2017-04-28] MEDS: AMIODARONE 200 MG TAB PO SCH ×2 (08:52→20:42)
[2017-04-28] MEDS: ASPIRIN 81 MG ECTAB PO SCH (08:52)
[2017-04-28] MEDS: LINEZOLID 600 MG TAB PO SCH ×2 (08:52→20:42)
[2017-04-28] MEDS: NEPHROCAPS PO SCH (08:53)
[2017-04-28] MEDS: CHOLECALCIFEROL 1000 INTER.UNIT TAB PO SCH (08:53)
[2017-04-28] MEDS: CEROVITE ADV FORMULA TAB PO SCH (08:53)
[2017-04-28] MEDS: GABAPENTIN 100 MG CAP PO SCH ×3 (08:53→20:41)
[2017-04-28] MEDS: CALCIUM ACETATE 667MG GELCAP PO SCH ×3 (08:54→17:38)
[2017-04-28] MEDS: PROSOURCE NOCARB 30ML/PKT PO SCH ×2 (08:54→20:00)
[2017-04-28] MEDS: COLLAGENASE OINT 30 GM TUBE EXT SCH (08:55)
[2017-04-28] MEDS: INSULIN ASPART 100 UNITS/ML 3 ML PEN SC SCH ×4 (09:00→20:43)
[2017-04-28 15:13] VITALS: BP 120/68; PULSE 58; TEMP 36.3; O2SAT 93
[2017-04-28 16:00] VITALS: O2SAT 93
[2017-04-28] MEDS: WARFARIN SOD 4 MG TAB PO SCH (16:07)
--- NOTE | 2017-04-28 18:34 | Progress Note ---
Internal Med Progress Note Date of Service: Apr 28, 2017. Provider Documentation: SUBJECTIVE: Denies chest pain or shortness of breath OBJECTIVE: General Appearance: no apparent distress, + obese Head: normocephalic, atraumatic Eyes: normal inspection,EOMI, sclerae normal ENT: hearing grossly normal, pharynx normal Neck: supple, no JVD, trachea midline Respiratory/Chest: chest non-tender, no respiratory distress, no accessory muscle use,good air entry, no wheezing Cardiovascular: heart rate in the 60s Abdomen/GI: normal bowel sounds, non tender, soft Extremities/Musculoskelatal: lower right extremity in dressing Neurologic/Psych: alert, normal mood/affect, oriented x 3 ASSESSMENT & PLAN: 66 yo F with hx of paroxysmal Afib on Coumadin , ESRD on HD follows with Nephrology Dr Vera at [facility] , Type 2 DM and other medical issues sent form her Dialysis center on 04/23/17 and found to be in rapid afib/Flutter. Patient converted from AFL RVR with SR overnight at 20:55 on 04/23/17 on amiodarone infusion. In regards to the the treatment for the resolved rapid afib/Flutter, cariology has discontinued IV amiodarone -Continue amiodarone 200 mg twice a day. At discharge, consider reducing to prior to hospital dose of 200 mg by mouth one time per day. -INR low after various changes to Coumadin made by cardiology service. Continue original home dose Coumadin 4 mg daily. INR increased from 1.6 to 1.7 Sources of infection: -Urine culture with pansensitive E.coli - completed Zosyn -stage 2 buttock pressure ulcer -pressure ulcer left heel - Unstageable as per wound care physician and s/p excisional debridement of 60 sq.cmon 04/26/17; dressed with Santyl and gauze changed on a daily basis; wound VAC planned for Saturday04/29/17 -Wound culture of the pressure ulcer grew MRSA - switched from Vancomycin to Zyvox 600mg po bid on 04/26/17 as per infectious disease recommendations INFLUENZA A POSITIVE: Continue Tamiflu from 04/23/17 to 04/28/17 ESRD ON HD : patient also received erythropoietin as ordered by nephrology service ESRD-routine HD today; dialysis three days a week; next dialysis session is 04/30. TYPE 2 DM : poorly controlled , last hb A1c > 10 insulin [facility] for glycemic management PT evaluation 04/24/17: required assist with bed mobility and transfer, bed<--> chair. Skilled, inpatient P.T. currently does not appear indicated FULL CODE DVT PROPHYLAXIS: Coumadin Disposition: with heart rate controlled, and infection being treated without fever spikes, and dialysis being given, patient's main health issues is wound care of lower extremities, wound VAC planned for Saturday04/29/17 as per wound care physician notes Vital Signs: Date Time Temp Pulse Resp B/P (MAP) Pulse Ox O2 Delivery O2 Flow Rate FiO2 04/28/17 16:00 93 Room Air 04/28/17 15:13 36.3 58 20 120/68 (85) 93 Room Air 04/28/17 09:00 Room Air 04/28/17 07:42 36.4 60 16 139/77 (97) 90 04/28/17 00:05 Room Air 04/27/17 22:17 36.5 63 18 135/83 (100) 96 Nasal Cannula 1.0 04/27/17 21:07 64 Lab Results: Results Past 24 Hours Test 04/27/17 20:02 04/28/17 05:18 04/28/17 07:41 04/28/17 11:52 Range/Units Bedside Glucose 128 100 114 70-90 mg/dl White Blood Count 7.82 4.8-10.8 K/uL Red Blood Count 3.11 4.2-5.4 M/uL Hemoglobin 10.0 12.0-16.0 g/dL Hematocrit 32.3 37-47 % Mean Corpuscular Volume 103.9 80-100 fL Mean Corpuscular Hemoglobin 32.2 25-34 pg Mean Corpuscular Hemoglobin Concent 31.0 32-36 g/dl RDW Standard Deviation 60.4 36.4-46.3 fL RDW Coefficient of Variation 16.4 11.5-14.5 % Platelet Count 205 130-400 K/uL Mean Platelet Volume 9.8 7.4-10.4 fL Nucleated RBC Absolute Count (auto) 0.08 0-0 K/uL Nucleated Red Blood Cells % 1.1 % Prothrombin Time 17.7 9.0-12.0 SECONDS Prothromb Time International Ratio 1.7 0.9-1.1 Test 04/28/17 16:47 Range/Units Bedside Glucose 101 70-90 mg/dl
[2017-04-28] MEDS: ATORVASTATIN 10 MG TAB PO SCH (20:42)
[2017-04-28 21:25] VITALS: PULSE 60
[2017-04-28] MEDS: ZOLPIDEM TARTRATE 5 MG TAB PO PRN (21:33)
[2017-04-28 23:47] VITALS: BP 112/69; PULSE 58; TEMP 36.3; O2SAT 93
[2017-04-29 07:49] LABS: HEMATOCRIT 33.1 % (37-47); HEMOGLOBIN 10.6 g/dL (12.0-16.0); MEAN CELL VOLUME 102.5 fL (80-100); MEAN CORPUSCULAR HEMOGLOBIN 32.8 pg (25-34); MEAN PLATELET VOLUME 9.3 fL (7.4-10.4); NUCLEATED RED BLOOD CELL ABS 0.04 K/uL (0-0); PLATELET COUNT 250 K/uL (130-400); RED CELL DISTRIBUTION WIDTH CV 16.5 % (11.5-14.5); RED CELL DISTRIBUTION WIDTH SD 59.9 fL (36.4-46.3); WHITE BLOOD COUNT 7.84 K/uL (4.8-10.8)
[2017-04-29 07:56] VITALS: BP 132/67; PULSE 58; TEMP 36.3; O2SAT 91
[2017-04-29] MEDS: PROSOURCE NOCARB 30ML/PKT PO SCH ×2 (08:00→20:00)
[2017-04-29] MEDS: NEPHROCAPS PO SCH (08:02)
[2017-04-29] MEDS: LINEZOLID 600 MG TAB PO SCH ×2 (08:02→20:35)
[2017-04-29] MEDS: CEROVITE ADV FORMULA TAB PO SCH (08:02)
[2017-04-29] MEDS: ASPIRIN 81 MG ECTAB PO SCH (08:02)
[2017-04-29] MEDS: CALCIUM ACETATE 667MG GELCAP PO SCH ×3 (08:02→18:05)
[2017-04-29] MEDS: CHOLECALCIFEROL 1000 INTER.UNIT TAB PO SCH (08:02)
[2017-04-29] MEDS: AMIODARONE 200 MG TAB PO SCH ×3 (08:02→20:49)
[2017-04-29] MEDS: GABAPENTIN 100 MG CAP PO SCH ×3 (08:02→20:34)
[2017-04-29] MEDS: INSULIN ASPART 100 UNITS/ML 3 ML PEN SC SCH ×4 (09:00→20:28)
[2017-04-29 09:49] VITALS: O2SAT 91
[2017-04-29] MEDS: COLLAGENASE OINT 30 GM TUBE EXT SCH (10:51)
[2017-04-29 15:45] VITALS: BP 127/81; PULSE 57; TEMP 36.3; O2SAT 90
[2017-04-29] MEDS: WARFARIN SOD 4 MG TAB PO SCH (15:55)
[2017-04-29] MEDS ORDERED: NURSING DECISION MEDICATION ORDER SCH (16:15)
[2017-04-29] MEDS: CHLORASEPTIC 1.4% SOLN 180 ML BTL MT PRN (18:09)
--- NOTE | 2017-04-29 19:05 | Progress Note ---
Internal Med Progress Note Date of Service: Apr 29, 2017. Provider Documentation: SUBJECTIVE: Denies chest pain or shortness of breath OBJECTIVE: General Appearance: no apparent distress, + obese Head: normocephalic, atraumatic Eyes: normal inspection,EOMI, sclerae normal ENT: hearing grossly normal, pharynx normal Neck: supple, no JVD, trachea midline Respiratory/Chest: chest non-tender, no respiratory distress, no accessory muscle use,good air entry, no wheezing Cardiovascular: heart rate in the 60s Abdomen/GI: normal bowel sounds, non tender, soft Extremities/Musculoskelatal: lower right extremity in dressing Neurologic/Psych: alert, normal mood/affect, oriented x 3 ASSESSMENT & PLAN: 66 yo F with hx of paroxysmal Afib on Coumadin , ESRD on HD follows with Nephrology Dr Vera at [facility] , Type 2 DM and other medical issues sent form her Dialysis center on 04/23/17 and found to be in rapid afib/Flutter. Patient converted from AFL RVR with SR overnight at 20:55 on 04/23/17 on amiodarone infusion. In regards to the the treatment for the resolved rapid afib/Flutter, cariology has discontinued IV amiodarone -Continue amiodarone 200 mg twice a day. At discharge, consider reducing to prior to hospital dose of 200 mg by mouth one time per day. -INR low after various changes to Coumadin made by cardiology service. INR increased from 1.6 to 1.7 on 04/28/17 while on coumadin 4 mg adn will continue same dose, check INR Sources of infection: -Urine culture with pansensitive E.coli - completed Zosyn -stage 2 buttock pressure ulcer -pressure ulcer left heel - Unstageable as per wound care physician and s/p excisional debridement of 60 sq.cmon 04/26/17; dressed with Santyl and gauze changed on a daily basis; wound VAC planned for Saturday04/29/17 -Wound culture of the pressure ulcer grew MRSA - switched from Vancomycin to Zyvox 600mg po bid on 04/26/17 as per infectious disease recommendations INFLUENZA A POSITIVE: Continue Tamiflu from 04/23/17 to 04/28/17; Tamiflu completed ESRD ON HD : patient also received erythropoietin as ordered by nephrology service ESRD-routine HD today; dialysis three days a week; next dialysis session is 04/30. TYPE 2 DM : poorly controlled , last hb A1c > 10 insulin [facility] for glycemic management PT evaluations FULL CODE DVT PROPHYLAXIS: Coumadin Disposition: with heart rate controlled, and infection being treated without fever spikes, and dialysis being given, patient's main health issues is wound care of lower extremities, wound VAC was planned for Saturday04/29/17 as per wound care physician notes but this has not happened yet Vital Signs: Date Time Temp Pulse Resp B/P (MAP) Pulse Ox O2 Delivery O2 Flow Rate FiO2 04/29/17 15:45 36.3 57 18 127/81 (96) 90 Room Air 04/29/17 11:03 Room Air 04/29/17 09:49 91 Room Air 04/29/17 07:56 36.3 58 14 132/67 (88) 91 Room Air 04/28/17 23:56 Room Air 04/28/17 23:47 36.3 58 18 112/69 (83) 93 Room Air 04/28/17 21:25 60 Lab Results: Results Past 24 Hours Test 04/28/17 20:28 04/29/17 06:58 04/29/17 07:45 04/29/17 11:20 Range/Units Bedside Glucose 127 90 111 70-90 mg/dl White Blood Count 7.84 4.8-10.8 K/uL Red Blood Count 3.23 4.2-5.4 M/uL Hemoglobin 10.6 12.0-16.0 g/dL Hematocrit 33.1 37-47 % Mean Corpuscular Volume 102.5 80-100 fL Mean Corpuscular Hemoglobin 32.8 25-34 pg Mean Corpuscular Hemoglobin Concent 32.0 32-36 g/dl RDW Standard Deviation 59.9 36.4-46.3 fL RDW Coefficient of Variation 16.5 11.5-14.5 % Platelet Count 250 130-400 K/uL Mean Platelet Volume 9.3 7.4-10.4 fL Nucleated RBC Absolute Count (auto) 0.04 0-0 K/uL Nucleated Red Blood Cells % 0.5 % Test 04/29/17 17:39 Range/Units Bedside Glucose 103 70-90 mg/dl Microbiology Results 04/28/17 C.difficile Toxin B Gene (PCR) - Final, Complete No C. difficile toxin B gene detected
[2017-04-29 20:28] VITALS: BP 111/70; PULSE 59; O2SAT 95
[2017-04-29] MEDS: ATORVASTATIN 10 MG TAB PO SCH (20:35)
[2017-04-29 20:43] VITALS: PULSE 60
[2017-04-29 23:48] VITALS: BP 115/60; PULSE 62; TEMP 36.8; O2SAT 90
[2017-04-30] VITALS (20 sets, daily range): BP systolic 109–161; BP diastolic 52–85; PULSE 54–62; TEMP 36.3–36.4; O2SAT 91–92
[2017-04-30] MEDS: ZOLPIDEM TARTRATE 5 MG TAB PO PRN ×2 (01:31→22:50)
--- NOTE | 2017-04-30 07:15 | Nephrology Progress Note ---
Nephrology Progress Note Date of Service: Apr 30, 2017. Subjective 66 yo female seen for follow up of ESRD. has the flu/aflutter which converted/ wounds on sacral and left heel. for wound vac/boot for the left heel. pt comfortable. Objective Date Time Temp Pulse Resp B/P (MAP) Pulse Ox O2 Delivery O2 Flow Rate FiO2 04/30/17 04:38 91 Room Air 04/30/17 00:09 91 Room Air 04/29/17 23:48 36.8 62 18 115/60 (78) 90 Room Air 04/29/17 20:43 60 04/29/17 20:28 59 111/70 (84) 95 Room Air 04/29/17 16:00 Room Air 04/29/17 15:45 36.3 57 18 127/81 (96) 90 Room Air 04/29/17 11:03 Room Air 04/29/17 09:49 91 Room Air 04/29/17 07:56 36.3 58 14 132/67 (88) 91 Room Air Physical Exam: General-aaox3, obese Eyes-no scleral icterus ENT-mmm Neck-supple Lungs-cta Heart-regular Abdomen-bs+ s/nt/nd Extremities-+1 edema r>l Neuro-nonfocal Current Inpatient Medications Medications (Trade) Dose Ordered Sig/Jed Route Start Time Stop Time Status Last Admin Dose Admin Acetaminophen (Tylenol Tab) 650 mg Q4H PRN PO 04/23/17 12:45 05/23/17 12:44 Insulin Aspart (novoLOG ASPART) SLIDING SCALE If C... ACHS SC 04/23/17 16:00 05/23/17 15:59 Future hold 04/29/17 18:08 1 UNITS Glucose (Glucose 40% Gel) 15-30 GRAMS 15 GRAMS... UD PRN PO 04/23/17 13:00 05/23/17 12:59 Glucose (Glucose Chew Tab) 4-8 Tablets 4 Tabl... UD PRN PO 04/23/17 13:00 05/23/17 12:59 Dextrose (Dextrose 50% 50ML Syringe) 25-50ML OF 50% DW IV FOR... UD PRN IV 04/23/17 13:00 05/23/17 12:59 Glucagon (Glucagon Inj) 1 mg UD PRN SQ 04/23/17 13:00 05/23/17 12:59 Miscellaneous Information (Consult Glycemic Management Pharmacy) 1 ea UD PRN N/A 04/23/17 12:55 05/23/17 12:54 Aspirin (Ecotrin Tab) 81 mg QAM PO 04/24/17 09:00 05/24/17 08:59 04/29/17 08:02 81 MG Atorvastatin Calcium (Lipitor Tab) 10 mg HS PO 04/23/17 21:00 05/23/17 20:59 04/29/17 20:35 10 MG Calcium Acetate (Phoslo Cap) 667 mg TIDM PO 04/23/17 16:45 05/23/17 17:59 04/29/17 18:05 667 MG Cholecalciferol (Vitamin D Tab) 1,000 inter.unit DAILY PO 04/24/17 09:00 05/24/17 08:59 04/29/17 08:02 1,000 INTER.UNIT Gabapentin (Neurontin Cap) 100 mg TID PO 04/23/17 21:00 05/23/17 20:59 04/29/17 20:34 100 MG Metoclopramide HCl (Reglan Tab) 5 mg TuThSa@0900 PO 04/25/17 09:00 05/25/17 08:59 04/27/17 07:53 5 MG Midodrine (Proamatine Tab) 20 mg TuThSa@0800 PO 04/25/17 08:00 05/25/17 07:59 04/27/17 07:49 20 MG Senna/Docusate Sodium (Senokot S Tab) 1 tab BID PRN PO 04/23/17 14:00 05/23/17 13:59 Vitamin B Complex/ Vit C/Folic Acid (Nephrocaps) 1 cap DAILY PO 04/24/17 09:00 05/24/17 08:59 04/29/17 08:02 1 CAP Miscellaneous Information (Order Awaiting Action) 1 ea QS N/A 04/23/17 16:00 05/23/17 15:59 04/24/17 23:21 1 EA Multivitamins/ Minerals (Multivitamin W/ Minerals Tab) 1 tab QAM PO 04/24/17 09:00 05/24/17 08:59 04/29/17 08:02 1 TAB Enteral Nutritional Formula (Prosource No Carb) 30 ml BID PO 04/24/17 21:00 05/24/17 20:59 04/27/17 21:06 30 ML Amiodarone HCl (Cordarone Tab) 200 mg BID PO 04/25/17 21:00 05/25/17 20:59 04/29/17 20:49 200 MG Collagenase (Santyl Oint) 1 appln DAILY EXT 04/27/17 09:00 05/27/17 08:59 04/29/17 10:51 1 APPLN Collagenase (Santyl Oint) 1 appln PRN PRN EXT 04/26/17 13:30 05/26/17 13:29 Linezolid (Zyvox Tab) 600 mg BID PO 04/26/17 21:00 05/06/17 20:59 04/29/17 20:35 600 MG Warfarin Sodium (Coumadin Tab) 4 mg DAILY@16 PO 04/27/17 16:00 05/27/17 15:59 04/29/17 15:55 4 MG Zolpidem Tartrate (Ambien Tab) 5 mg HS PRN PO 04/28/17 21:30 05/28/17 21:29 04/30/17 01:31 5 MG Phenol (Chloraseptic 1.4% [place]) 1 sprays PRN PRN MT 04/29/17 17:15 05/29/17 17:14 04/29/17 18:09 1 SPRAYS Epoetin Onofre (Procrit Inj) 10,000 units TODAY@0800 IV. 04/30/17 08:00 04/30/17 18:00 Last 24 Hours Test 04/29/17 07:45 04/29/17 11:20 04/29/17 17:39 04/29/17 19:49 Bedside Glucose 90 mg/dl 111 mg/dl 103 mg/dl 112 mg/dl Test 04/30/17 06:59 Assessment & Plan ESRD-pt for dialysis today. volume status and electrolytes are stable. dialyze on a 3kbath with one liter uf as bp tolerates. 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
[2017-04-30 07:38] LABS: INR 2.1 (0.9-1.1)
[2017-04-30] MEDS ORDERED: EPOETIN ALFA 10,000 UNITS/ML VIAL IV. SCH (08:00)
[2017-04-30 08:14] LABS: ALBUMIN 2.4 gm/dl (3.4-5.0); CALCIUM 8.9 mg/dl (8.5-10.1); CREATININE 6.37 mg/dl (0.60-1.20); POTASSIUM 4.1 mmol/L (3.5-5.1); TOTAL PROTEIN 5.8 gm/dl (6.4-8.2)
[2017-04-30] MEDS: CALCIUM ACETATE 667MG GELCAP PO SCH ×3 (08:18→18:54)
[2017-04-30] MEDS: GABAPENTIN 100 MG CAP PO SCH ×3 (08:19→21:16)
[2017-04-30] MEDS: ASPIRIN 81 MG ECTAB PO SCH (08:19)
[2017-04-30] MEDS: CHOLECALCIFEROL 1000 INTER.UNIT TAB PO SCH (08:20)
[2017-04-30] MEDS: PROSOURCE NOCARB 30ML/PKT PO SCH ×2 (08:20→21:00)
[2017-04-30] MEDS: METOCLOPRAMIDE HCL 5 MG TAB PO SCH (08:20)
[2017-04-30] MEDS: LINEZOLID 600 MG TAB PO SCH ×2 (08:21→21:16)
[2017-04-30] MEDS: CEROVITE ADV FORMULA TAB PO SCH (08:21)
[2017-04-30] MEDS: MIDODRINE 10 MG TAB PO SCH (08:21)
[2017-04-30] MEDS: AMIODARONE 200 MG TAB PO SCH ×2 (08:22→21:17)
[2017-04-30] MEDS: NEPHROCAPS PO SCH (08:24)
[2017-04-30] MEDS: INSULIN ASPART 100 UNITS/ML 3 ML PEN SC SCH ×4 (08:34→21:00)
--- NOTE | 2017-04-30 10:51 | Pharmacy Progress Note ---
Pharmacy Glycemic Sign Off Nt Date of Service Apr 30, 2017. Assessment & Plan ASSESSMENT: * Pharmacy was consulted by Dr Quintana on 04/23/17 for glycemic control and to write orders per [facility] inpatient glycemic control protocol. * Major changes made by pharmacy to antidiabetic regimen include: * Holding outpatient glipizide for inpatient admission * Initiating SQ bolus/[facility]I Novolog scale * Basal insulin not needed to maintain glycemic control * Patient has been receiving/requiring 2-10 units of insulin per day for adequate glycemic control * BSGs ranging 90-112 mg/dl * Regimen has only required minor adjustments over the past 48hrs to achieve this level of control * Do not anticipate further changes in patient status that would quickly deteriorate glycemic control (i.e. patient to be NPO for upcoming procedure, steroids tapering, starting tube feedings, etc). * Please see recommendations for outpatient antidiabetic regimen below. PLAN FOR INPATIENT GLYCEMIC CONTROL: No changes needed to current regimen. * No basal insulin needed * Continue NovoLog per scale ACHS/Q6hrs while NPO * Goal range = 110-140 mg/dl * CF = 30 mg/dl/unit * CR = 1 unit for ever 10 g CHO consumed * Pharmacy is signing off of glycemic consult and will no longer be making adjustments to inpatient regimen. Please feel free to re-consult if needed. Thank you. DISCHARGE RECOMMENDATIONS: * A1c 4.6 % on 04/24/17 * However, this result is likely somewhat unreliable in ESRD patients d/t interactions between the A1c analyzing technique and high levels of urea in ESRD , reduced RBC life span, iron deficiency anemia, and EPO administration. HbA1c > 7.5% in ESRD patient may overestimate the extent of hyperglycemia in ESRD patients. * Since patient has only been requiring such minimal insulin for admission it is likely that she may be experiencing hypoglycemia with glipizide (outpatient regimen) * Recommend stopping glipizide at discharge or at a minimum changing from the ER version to IR version d/t ESRD/HD.
[2017-04-30] MEDS: COLLAGENASE OINT 30 GM TUBE EXT SCH (12:09)
[2017-04-30] MEDS: CHLORASEPTIC 1.4% SOLN 180 ML BTL MT PRN (12:10)
--- NOTE | 2017-04-30 18:46 | Progress Note ---
Subjective Date of Service: Apr 30, 2017. Subjective Pt evaluation today including: conversation w/ patient, physical exam, lab review, review of studies, review of inpatient medication list Saw/examined the patient in room 279 She is doing well, no problems/issues to note L ankle is wrapped/dressed appreciate wound care - no wound vac at this time patient aware about plan for dialysis today agreeable to plan for transfer to [facility] Problem List Medical Problems: (1) Altered mental status Status: Acute (2) Ambulatory dysfunction Status: Acute (3) Atrial flutter Status: Acute (4) Atrial flutter with rapid ventricular response Status: Acute (5) Atrial flutter with rapid ventricular response Status: Acute (6) Bronchitis Status: Acute (7) Chronic renal failure Status: Acute (8) Fracture of distal fibula Status: Acute (9) Fracture of malleolus of right ankle Status: Acute (10) Leukocytosis Status: Acute (11) Pneumonia Status: Acute (12) Pressure ulcer of buttock Status: Acute (13) Pressure ulcer of heel Status: Acute (14) SVT (supraventricular tachycardia) Status: Acute (15) Tibia fracture Status: Acute (16) Weakness Status: Acute Review of Systems Constitutional: No fever, No chills, No weakness Respiratory: No shortness of breath Cardiac: No chest pain Abdomen: No pain, No nausea, No vomiting, No diarrhea Musculoskeletal: No joint pain, No muscle pain Medications Current Inpatient Medications Medications (Trade) Dose Ordered Sig/Jed Route Start Time Stop Time Status Last Admin Dose Admin Acetaminophen (Tylenol Tab) 650 mg Q4H PRN PO 04/23/17 12:45 05/23/17 12:44 Insulin Aspart (novoLOG ASPART) SLIDING SCALE If C... ACHS SC 04/23/17 16:00 05/23/17 15:59 Future hold 04/30/17 08:34 3 UNITS Glucose (Glucose 40% Gel) 15-30 GRAMS 15 GRAMS... UD PRN PO 04/23/17 13:00 05/23/17 12:59 Glucose (Glucose Chew Tab) 4-8 Tablets 4 Tabl... UD PRN PO 04/23/17 13:00 05/23/17 12:59 Dextrose (Dextrose 50% 50ML Syringe) 25-50ML OF 50% DW IV FOR... UD PRN IV 04/23/17 13:00 05/23/17 12:59 Glucagon (Glucagon Inj) 1 mg UD PRN SQ 04/23/17 13:00 05/23/17 12:59 Aspirin (Ecotrin Tab) 81 mg QAM PO 04/24/17 09:00 05/24/17 08:59 04/30/17 08:19 81 MG Atorvastatin Calcium (Lipitor Tab) 10 mg HS PO 04/23/17 21:00 05/23/17 20:59 04/29/17 20:35 10 MG Calcium Acetate (Phoslo Cap) 667 mg TIDM PO 04/23/17 16:45 05/23/17 17:59 04/30/17 12:06 667 MG Cholecalciferol (Vitamin D Tab) 1,000 inter.unit DAILY PO 04/24/17 09:00 05/24/17 08:59 04/30/17 08:20 1,000 INTER.UNIT Gabapentin (Neurontin Cap) 100 mg TID PO 04/23/17 21:00 05/23/17 20:59 04/30/17 08:19 100 MG Metoclopramide HCl (Reglan Tab) 5 mg TuThSa@0900 PO 04/25/17 09:00 05/25/17 08:59 04/30/17 08:20 5 MG Midodrine (Proamatine Tab) 20 mg TuThSa@0800 PO 04/25/17 08:00 05/25/17 07:59 04/30/17 08:21 20 MG Senna/Docusate Sodium (Senokot S Tab) 1 tab BID PRN PO 04/23/17 14:00 05/23/17 13:59 Vitamin B Complex/ Vit C/Folic Acid (Nephrocaps) 1 cap DAILY PO 04/24/17 09:00 05/24/17 08:59 04/30/17 08:24 1 CAP Miscellaneous Information (Order Awaiting Action) 1 ea QS N/A 04/23/17 16:00 05/23/17 15:59 04/24/17 23:21 1 EA Multivitamins/ Minerals (Multivitamin W/ Minerals Tab) 1 tab QAM PO 04/24/17 09:00 05/24/17 08:59 04/30/17 08:21 1 TAB Enteral Nutritional Formula (Prosource No Carb) 30 ml BID PO 04/24/17 21:00 05/24/17 20:59 04/27/17 21:06 30 ML Amiodarone HCl (Cordarone Tab) 200 mg BID PO 04/25/17 21:00 05/25/17 20:59 04/30/17 08:22 200 MG Collagenase (Santyl Oint) 1 appln DAILY EXT 04/27/17 09:00 05/27/17 08:59 04/30/17 12:09 1 APPLN Collagenase (Santyl Oint) 1 appln PRN PRN EXT 04/26/17 13:30 05/26/17 13:29 Linezolid (Zyvox Tab) 600 mg BID PO 04/26/17 21:00 05/06/17 20:59 04/30/17 08:21 600 MG Warfarin Sodium (Coumadin Tab) 4 mg DAILY@16 PO 04/27/17 16:00 05/27/17 15:59 04/29/17 15:55 4 MG Zolpidem Tartrate (Ambien Tab) 5 mg HS PRN PO 04/28/17 21:30 05/28/17 21:29 04/30/17 01:31 5 MG Phenol (Chloraseptic 1.4% [place]) 1 sprays PRN PRN MT 04/29/17 17:15 05/29/17 17:14 04/30/17 12:10 1 SPRAYS Objective Vital Signs Date Time Temp Pulse Resp B/P (MAP) Pulse Ox O2 Delivery O2 Flow Rate FiO2 04/30/17 18:05 36.4 58 131/72 (91) 04/30/17 17:15 56 114/66 04/30/17 17:00 56 114/66 04/30/17 16:45 57 115/69 04/30/17 16:30 58 123/66 04/30/17 16:15 54 120/52 04/30/17 16:03 55 109/55 04/30/17 15:30 56 117/66 04/30/17 15:15 57 134/72 04/30/17 15:00 57 142/74 04/30/17 14:45 59 145/85 04/30/17 14:30 58 158/81 2/13/18 14:26 60 161/85 04/30/17 14:10 36.3 59 129/71 (90) 04/30/17 09:17 91 Room Air 04/30/17 08:17 36.3 61 20 115/75 (88) 92 Room Air 04/30/17 04:38 91 Room Air 04/30/17 00:09 91 Room Air 04/29/17 23:48 36.8 62 18 115/60 (78) 90 Room Air 04/29/17 20:43 60 04/29/17 20:28 59 111/70 (84) 95 Room Air Physical Exam General Appearance: no apparent distress Respiratory/Chest: no respiratory distress, no accessory muscle use Cardiovascular: regular rate, rhythm, no edema, no murmur Extremities: + pertinent finding (L ankle dressed) Laboratory Results Last 24 Hours Test 04/29/17 19:49 04/30/17 06:59 04/30/17 07:29 04/30/17 11:36 Bedside Glucose 112 mg/dl 100 mg/dl 99 mg/dl Prothrombin Time 21.9 SECONDS Prothromb Time International Ratio 2.1 Sodium Level 135 mmol/L Potassium Level 4.1 mmol/L Chloride Level 99 mmol/L Carbon Dioxide Level 28 mmol/L Anion Gap 9.0 mmol/L Blood Urea Nitrogen 26 mg/dl Creatinine 6.37 mg/dl Est Creatinine Clear Calc Drug Dose 11.0 ml/min Estimated GFR () 7.2 Estimated GFR (Non- 6.2 BUN/Creatinine Ratio 4.2 Random Glucose 89 mg/dl Calcium Level 8.9 mg/dl Total Bilirubin 0.3 mg/dl Aspartate Amino Transf (AST/SGOT) 11 U/L Alanine Aminotransferase (ALT/SGPT) 23 U/L Alkaline Phosphatase 60 U/L Total Protein 5.8 gm/dl Albumin 2.4 gm/dl Globulin 3.4 gm/dl Albumin/Globulin Ratio 0.7 Assessment and Plan This is a 66 year old female with a PMH of ESRD on HD, DM2, paroxysmal a-fib on amiodarone and warfarin - presents with atrial flutter with rapid ventricular response, influenza A, and infection of the L ankle. Rapid Atrial Fibrillation/Flutter with Rapid Ventricular Response - resolved currently in sinus rhythm plan is to continue Amiodarone 200mg twice a day and then switch to once daily when discharged continue Coumadin 4mg daily -- goal INR of 2-3 Influenza A - resolved completed course of Tamiflu L Heel ulcer s/p debridement patient with MRSA growing on wound culture plan as per ID is Zyvox BID dosing for likely a total of 14 days appreciate wound care - no wound vac as of this time will d/c to [facility] - outpatient wound care f/u Pansensitive UTI - resolved completed course of Zosyn ESRD on HD continue dialysis on [id number] patient will be continued on dialysis as outpatient DM2 Ha1c >10% insulin sliding scale DVT ppx Coumadin FULL CODE
[2017-04-30] MEDS: WARFARIN SOD 4 MG TAB PO SCH (18:54)
[2017-04-30] MEDS: ATORVASTATIN 10 MG TAB PO SCH (21:17)
[2017-05-01 00:21] VITALS: BP 121/72; PULSE 60; TEMP 36.4; O2SAT 91
[2017-05-01 04:00] VITALS: BP 124/77; PULSE 64; TEMP 36.4; O2SAT 90
[2017-05-01 07:10] VITALS: BP 125/66; PULSE 65; TEMP 36.4; O2SAT 92
[2017-05-01 07:37] LABS: HEMATOCRIT 31.9 % (37-47); MEAN CELL VOLUME 102.9 fL (80-100); MEAN CORPUSCULAR HEMOGLOBIN 32.3 pg (25-34); MEAN CORPUSCULAR HGB CONC 31.3 g/dl (32-36); MEAN PLATELET VOLUME 8.9 fL (7.4-10.4); PLATELET COUNT 233 K/uL (130-400); RED CELL DISTRIBUTION WIDTH CV 17.3 % (11.5-14.5); RED CELL DISTRIBUTION WIDTH SD 60.9 fL (36.4-46.3); WHITE BLOOD COUNT 7.81 K/uL (4.8-10.8)
[2017-05-01 07:45] LABS: INR 2.4 (0.9-1.1)
[2017-05-01 08:24] LABS: CALCIUM 8.9 mg/dl (8.5-10.1); CREATININE 4.77 mg/dl (0.60-1.20); POTASSIUM 4.1 mmol/L (3.5-5.1)
[2017-05-01] MEDS: INSULIN ASPART 100 UNITS/ML 3 ML PEN SC SCH ×2 (08:31→13:12)
[2017-05-01] MEDS: GABAPENTIN 100 MG CAP PO SCH ×2 (08:32→13:07)
[2017-05-01] MEDS: CALCIUM ACETATE 667MG GELCAP PO SCH ×2 (08:32→13:07)
[2017-05-01] MEDS: NEPHROCAPS PO SCH (08:33)
[2017-05-01] MEDS: CEROVITE ADV FORMULA TAB PO SCH (08:33)
[2017-05-01] MEDS: LINEZOLID 600 MG TAB PO SCH (08:33)
[2017-05-01] MEDS: ASPIRIN 81 MG ECTAB PO SCH (08:33)
[2017-05-01] MEDS: AMIODARONE 200 MG TAB PO SCH (08:33)
[2017-05-01] MEDS: CHOLECALCIFEROL 1000 INTER.UNIT TAB PO SCH (08:34)
[2017-05-01] MEDS: PROSOURCE NOCARB 30ML/PKT PO SCH (08:34)
[2017-05-01 08:50] VITALS: O2SAT 91
[2017-05-01 11:04] VITALS: BP 102/67; PULSE 62; TEMP 36.4; O2SAT 92
[2017-05-01] MEDS: COLLAGENASE OINT 30 GM TUBE EXT SCH (13:07)
--- NOTE | 2017-05-01 13:27 | Progress Note ---
Subjective Date of Service: May 01, 2017. Subjective Pt evaluation today including: conversation w/ patient, physical exam, lab review, review of studies, review of inpatient medication list Saw/examined the patient in room 279 No problems/issues to note today had dialysis yesterday, tolerated it well denies chest pain/shortness of breath/palpitations Problem List Medical Problems: (1) Altered mental status Status: Acute (2) Ambulatory dysfunction Status: Acute (3) Atrial flutter Status: Acute (4) Atrial flutter with rapid ventricular response Status: Acute (5) Atrial flutter with rapid ventricular response Status: Acute (6) Bronchitis Status: Acute (7) Chronic renal failure Status: Acute (8) Fracture of distal fibula Status: Acute (9) Fracture of malleolus of right ankle Status: Acute (10) Leukocytosis Status: Acute (11) Pneumonia Status: Acute (12) Pressure ulcer of buttock Status: Acute (13) Pressure ulcer of heel Status: Acute (14) SVT (supraventricular tachycardia) Status: Acute (15) Tibia fracture Status: Acute (16) Weakness Status: Acute Review of Systems Constitutional: No fever, No chills, No weakness Respiratory: No cough, No sputum, No wheezing, No shortness of breath Cardiac: No chest pain Abdomen: No pain, No nausea, No vomiting, No diarrhea Medications Current Inpatient Medications Medications (Trade) Dose Ordered Sig/Jed Route Start Time Stop Time Status Last Admin Dose Admin Acetaminophen (Tylenol Tab) 650 mg Q4H PRN PO 04/23/17 12:45 05/23/17 12:44 Insulin Aspart (novoLOG ASPART) SLIDING SCALE If C... ACHS SC 04/23/17 16:00 05/23/17 15:59 Future hold 05/01/17 13:12 3 UNITS Glucose (Glucose 40% Gel) 15-30 GRAMS 15 GRAMS... UD PRN PO 04/23/17 13:00 05/23/17 12:59 Glucose (Glucose Chew Tab) 4-8 Tablets 4 Tabl... UD PRN PO 04/23/17 13:00 05/23/17 12:59 Dextrose (Dextrose 50% 50ML Syringe) 25-50ML OF 50% DW IV FOR... UD PRN IV 04/23/17 13:00 05/23/17 12:59 Glucagon (Glucagon Inj) 1 mg UD PRN SQ 04/23/17 13:00 05/23/17 12:59 Aspirin (Ecotrin Tab) 81 mg QAM PO 04/24/17 09:00 05/24/17 08:59 05/01/17 08:33 81 MG Atorvastatin Calcium (Lipitor Tab) 10 mg HS PO 04/23/17 21:00 05/23/17 20:59 04/30/17 21:17 10 MG Calcium Acetate (Phoslo Cap) 667 mg TIDM PO 04/23/17 16:45 05/23/17 17:59 05/01/17 13:07 667 MG Cholecalciferol (Vitamin D Tab) 1,000 inter.unit DAILY PO 04/24/17 09:00 05/24/17 08:59 05/01/17 08:34 1,000 INTER.UNIT Gabapentin (Neurontin Cap) 100 mg TID PO 04/23/17 21:00 05/23/17 20:59 05/01/17 13:07 100 MG Metoclopramide HCl (Reglan Tab) 5 mg TuThSa@0900 PO 04/25/17 09:00 05/25/17 08:59 04/30/17 08:20 5 MG Midodrine (Proamatine Tab) 20 mg TuThSa@0800 PO 04/25/17 08:00 05/25/17 07:59 04/30/17 08:21 20 MG Senna/Docusate Sodium (Senokot S Tab) 1 tab BID PRN PO 04/23/17 14:00 05/23/17 13:59 Vitamin B Complex/ Vit C/Folic Acid (Nephrocaps) 1 cap DAILY PO 04/24/17 09:00 05/24/17 08:59 05/01/17 08:33 1 CAP Miscellaneous Information (Order Awaiting Action) 1 ea QS N/A 04/23/17 16:00 05/23/17 15:59 04/24/17 23:21 1 EA Multivitamins/ Minerals (Multivitamin W/ Minerals Tab) 1 tab QAM PO 04/24/17 09:00 05/24/17 08:59 05/01/17 08:33 1 TAB Enteral Nutritional Formula (Prosource No Carb) 30 ml BID PO 04/24/17 21:00 3/9/18 20:59 04/27/17 21:06 30 ML Amiodarone HCl (Cordarone Tab) 200 mg BID PO 04/25/17 21:00 05/25/17 20:59 05/01/17 08:33 200 MG Collagenase (Santyl Oint) 1 appln DAILY EXT 04/27/17 09:00 05/27/17 08:59 05/01/17 13:07 1 APPLN Collagenase (Santyl Oint) 1 appln PRN PRN EXT 04/26/17 13:30 05/26/17 13:29 Linezolid (Zyvox Tab) 600 mg BID PO 04/26/17 21:00 05/06/17 20:59 05/01/17 08:33 600 MG Warfarin Sodium (Coumadin Tab) 4 mg DAILY@16 PO 04/27/17 16:00 05/27/17 15:59 04/30/17 18:54 4 MG Zolpidem Tartrate (Ambien Tab) 5 mg HS PRN PO 04/28/17 21:30 05/28/17 21:29 04/30/17 22:50 5 MG Phenol (Chloraseptic 1.4% [place]) 1 sprays PRN PRN MT 04/29/17 17:15 05/29/17 17:14 04/30/17 12:10 1 SPRAYS Objective Vital Signs Date Time Temp Pulse Resp B/P (MAP) Pulse Ox O2 Delivery O2 Flow Rate FiO2 05/01/17 11:04 36.4 62 18 102/67 (79) 92 Room Air 05/01/17 10:16 36.4 65 20 91 Room Air 05/01/17 08:50 91 Room Air 05/01/17 07:10 36.4 65 20 125/66 (85) 92 Room Air 05/01/17 04:00 36.4 64 18 124/77 (93) 90 Room Air 05/01/17 00:21 36.4 60 16 121/72 (88) 91 Room Air 05/01/17 00:00 Room Air 04/30/17 18:40 91 Room Air 04/30/17 18:28 36.3 62 18 132/78 (96) 91 04/30/17 18:05 36.4 58 131/72 (91) 04/30/17 17:15 56 114/66 04/30/17 17:00 56 114/66 04/30/17 16:45 57 115/69 04/30/17 16:30 58 123/66 04/30/17 16:15 54 120/52 04/30/17 16:03 55 109/55 04/30/17 15:30 56 117/66 04/30/17 15:15 57 134/72 04/30/17 15:00 57 142/74 04/30/17 14:45 59 145/85 04/30/17 14:30 58 158/81 04/30/17 14:26 60 161/85 04/30/17 14:10 36.3 59 129/71 (90) Physical Exam General Appearance: no apparent distress Respiratory/Chest: lungs clear, normal breath sounds, no respiratory distress, no accessory muscle use Cardiovascular: regular rate, rhythm, no edema, no murmur Abdomen: normal bowel sounds, non tender, soft Extremities: normal inspection, no pedal edema, + pertinent finding (L ankle dressed) Neurologic/Psychiatric: no motor/sensory deficits, alert, normal mood/affect Laboratory Results Last 24 Hours Test 04/30/17 18:24 04/30/17 20:00 05/01/17 07:17 05/01/17 07:32 Bedside Glucose 75 mg/dl 100 mg/dl 97 mg/dl White Blood Count 7.81 K/uL Red Blood Count 3.10 M/uL Hemoglobin 10.0 g/dL Hematocrit 31.9 % Mean Corpuscular Volume 102.9 fL Mean Corpuscular Hemoglobin 32.3 pg Mean Corpuscular Hemoglobin Concent 31.3 g/dl RDW Standard Deviation 60.9 fL RDW Coefficient of Variation 17.3 % Platelet Count 233 K/uL Mean Platelet Volume 8.9 fL Prothrombin Time 24.3 SECONDS Prothromb Time International Ratio 2.4 Sodium Level 137 mmol/L Potassium Level 4.1 mmol/L Chloride Level 99 mmol/L Carbon Dioxide Level 30 mmol/L Anion Gap 8.0 mmol/L Blood Urea Nitrogen 15 mg/dl Creatinine 4.77 mg/dl Est Creatinine Clear Calc Drug Dose 14.5 ml/min Estimated GFR () 10.2 Estimated GFR (Non- 8.8 BUN/Creatinine Ratio 3.2 Random Glucose 91 mg/dl Calcium Level 8.9 mg/dl Test 05/01/17 11:29 Bedside Glucose 113 mg/dl Assessment and Plan This is a 66 year old female with a PMH of ESRD on HD, DM2, paroxysmal a-fib on amiodarone and warfarin - presents with atrial flutter with rapid ventricular response, influenza A, and infection of the L ankle. Rapid Atrial Fibrillation/Flutter with Rapid Ventricular Response - resolved currently in sinus rhythm plan is to continue Amiodarone 200mg twice a day and then switch to once daily when discharged continue Coumadin 4mg daily -- goal INR of 2-3 Influenza A - resolved completed course of Tamiflu L Heel ulcer 05/01 will d/c to [facility] will d/c with Zyvox for a total of 14 days wound care and ID f/u as outpatient 04/30 s/p debridement patient with MRSA growing on wound culture plan as per ID is Zyvox BID dosing for likely a total of 14 days appreciate wound care - no wound vac as of this time will d/c to [facility] - outpatient wound care f/u Pansensitive UTI - resolved completed course of Zosyn ESRD on HD continue dialysis on [id number]-Wdrrthgb patient will be continued on dialysis as outpatient DM2 Ha1c >10% insulin sliding scale DVT ppx Coumadin FULL CODE
[2017-05-01] MEDS ORDERED: NUTR-1049 PO (13:29)
[2017-05-01] MEDS ORDERED: LINE1TAB2 PO (13:29)
--- NOTE | 2017-05-01 13:33 | Discharge Instructions ---
Discharge Instructions Date of Service May 01, 2017. Admission Reason for Admission: Atrial Flutter By Electrocardiogram, Esrd Discharge Discharge Diagnosis / Problem: Rapid Atrial Flutter, MRSA infection of L ankle , UTI Discharge Goals Goal(s): Decrease discomfort, Improve function Activity Recommendations Activity Level: Up Ad Anastasiya Therapies: Physical Therapy, Occupational Therapy . Additional Information Patient informed of condition: Yes Advance Directives: No DNR: No Level of Care: Skilled Communicable Disease: Yes Prognosis: Stable Instructions / Follow-Up Instructions / Follow-Up Patient to be on Zyvox twice a day for the next 8 days for the MRSA infection * L ankle wound dressing should be changed daily * outpatient wound care follow-up, ID should also follow Hemodialysis on Saturday, , Saturday Current Hospital Diet Patient's current hospital diet: Renal Diet, AHA Diet (Heart Healthy), Diabetes Type 2 Diet Discharge Diet Recommended Diet: AHA Diet (Heart Healthy), Diabetes Type 2 Diet, Renal Diet Pending Studies Studies pending at discharge: no Laboratory Results Hemoglobin A1c Test 04/24/17 07:05 Range/Units Estimated Average Glucose 85 mg/dl Hemoglobin A1c 4.6 4.5-5.6 % Lipid Panel Test 04/24/17 07:05 Range/Units Triglycerides Level 99 0-150 mg/dl Cholesterol Level 100 0-200 mg/dl HDL Cholesterol 56 mg/dl Cholesterol/HDL Ratio 1.8 LDL Cholesterol, Calculated 24 mg/dl Medical Emergencies . Who to Call and When: Medical Emergencies: If at any time you feel your situation is an emergency, please call 911 immediately. . Non-Emergent Contact Non-Emergency issues call your: Primary Care Provider . . "Provider Documentation" section prepared by Rashid Velez. . Core Measure Problem Core Measures: None
--- NOTE | 2017-05-01 13:36 | Discharge Summary ---
Discharge Summary Date of Service May 01, 2017. Discharge Summary Admission Date: Apr 23, 2017 at 12:40 Discharge Date: May 01, 2017 Discharge Disposition: Home Principal Diagnosis: Atrial Flutter with RVR ESRD on Hemodialysis MRSA infection of L ankle/LE wound Medication Reconciliation New Medications: Linezolid (Linezolid) 600 Mg Tab 600 MG PO BID for 8 Days, #16 TAB Nutritional Supplements (Prosource No Carb) 1 Liq Liq 30 ML PO BID for 30 Days, CAN Continued Medications: Amiodarone Hcl (Cordarone) 200 Mg Tab 200 MG PO QAM, TAB Aspirin (Aspirin Dr) 81 Mg Tab 81 MG PO QAM Atorvastatin (Lipitor) 10 Mg Tab 10 MG PO HS Calcium Acetate (Phosphate Bin (Phoslo 667 Mg) 667 Mg Cap 1 CAP PO TIDM Cholecalciferol (Vitamin D3) 1,000 Unit Tab 1000 UNITS PO DAILY Ferric Citrate (Auryxia) 210 Mg Tab 210 MG PO BID Gabapentin (Gabapentin) 100 Mg Cap 100 MG PO TID Glipizide (Glipizide Er) 5 Mg Tab 5 MG PO DAILY Metoclopramide Hcl (Reglan) 5 Mg Tab 5 MG PO UD 1 tab po once daily 3 times a week on HD days Midodrine Hcl (Midodrine Hcl) 10 Mg Tab 20 MG PO UD TWO 10 MG TABLETS 3X WEEK PRIOR TO HD Multiple Vitamins W/ Minerals (Ocuvite Lutein) 1 Cap Cap 1 CAP PO DAILY Senna/Docusate Sod (Senokot S) 1 Tab Tab 1 TAB PO BID PRN for Constipation Vitamin B Cmplx/Vitc/Folic Ac (Nephrocaps) Cap 1 CAP PO DAILY Warfarin Sod (Coumadin) 4 Mg Tab 4 MG PO DAILY Admission Information HPI (per Admitting provider): Pt is 66 y/o F with PMH ESRD on HD, DM II, paroxysmal a-fib on amiodarone and warfarin, hx RBBB presented to ER from dialysis center with c/o tachycardia. Pt states 3 days ago started with non-productive cough, some nausea, mild dizziness. She states has been eating and drinking well. Makes little urine, denies any hematuria, dysuria. Denies CP, SOB, syncope, palpitations. She went to dialysis center today in [place] and was found to have tachycardia and was sent to ER. Reports chronic LE edema and denies any worsening or increased erythema of legs. States past 2 weeks noted ulcer to left heel. States had ulcer in past which seemed to heal. Pt admits is to wear a boot at night but she often takes it off and rubs her heel on the bed and pt admits to doing this recently which she believes is cause of recurrent ulcer. Denies noted drainage from area or surrounding erythema. Pt uses wheelchair and very limited walker. 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 Hasn't seen for close to a year. Sales Developer: Dr Mariee reports had influenza vaccine 11/2016. Her started with cough yesterday. In ER pt found to be in aflutter 153. She was given cardizem 20mg with rates still in 130's. BP's 106/85 - 94/72 - 110/76. WBC: 11, Hgb: 11 (~10.5 baseline) . POC: lactic acid: 1.4. TSH: 1.8. +influenza swab. CXR: mild overload Physical Exam (per Admitting): General Appearance: no apparent distress, + obese Head: normocephalic, atraumatic Eyes: normal inspection, PERRL, EOMI, sclerae normal ENT: hearing grossly normal, pharynx normal, + pertinent finding (mucous membranes moist) Neck: supple, no JVD, trachea midline Respiratory/Chest: chest non-tender, no respiratory distress, no accessory muscle use, + decreased breath sounds (bases bilaterally) Cardiovascular: + tachycardia (irregular) Abdomen/GI: normal bowel sounds, non tender, soft Extremities/Musculoskelatal: + pertinent finding (bilateral LE edema with very dry skin, mild erythema, Ext non-tender to palpation, Left calcaneous with ulcer with eschar on wound edges with foul odor, no filiberto discharge noted, some mild surrounding erythema) Neurologic/Psych: alert, normal mood/affect, oriented x 3 Skin: + pertinent finding (diffuse dry skin) Hospital Course This is a 66 year old female with a PMH of ESRD on HD, DM2, paroxysmal a-fib on amiodarone and warfarin - presents with atrial flutter with rapid ventricular response, influenza A, and infection of the L ankle. Rapid Atrial Fibrillation/Flutter with Rapid Ventricular Response - resolved currently in sinus rhythm plan is to continue Amiodarone 200mg twice a day and then switch to once daily when discharged continue Coumadin 4mg daily -- goal INR of 2-3 Influenza A - resolved completed course of Tamiflu L Heel ulcer 05/01 will d/c to [facility] will d/c with Zyvox for a total of 14 days wound care and ID f/u as outpatient 04/30 s/p debridement patient with MRSA growing on wound culture plan as per ID is Zyvox BID dosing for likely a total of 14 days appreciate wound care - no wound vac as of this time will d/c to [facility] - outpatient wound care f/u Pansensitive UTI - resolved completed course of Zosyn ESRD on HD continue dialysis on [id number]-Ljxwbvyy patient will be continued on dialysis as outpatient DM2 Ha1c >10% insulin sliding scale DVT ppx Coumadin FULL CODE Total time spent on discharge = 45 minutes This includes examination of the patient, discharge planning, medication reconciliation, and communication with other providers. Discharge Instructions Patient to be on Zyvox twice a day for the next 8 days for the MRSA infection * L ankle wound dressing should be changed daily * outpatient wound care follow-up, ID should also follow Hemodialysis on Saturday, , Saturday
== END 2017-05-01 14:54 | DRG 166 ==
LOC: EDBD 10:16 → C.EDB 10:18 → C.2T 12:40 → EDBEDREQ 12:59 → ENRESERV 13:04 → C.4E 04-27 15:52 → C.MED 04-29 21:52
PROVIDERS: ADMIT Hospitalist; ATTEND Family Medicine
PROC: 0JBR0ZZ Excision of Left Foot Subcutaneous Tissue and Fascia, Open Approach (ICD-10-PCS; principal; 2017-04-26)
DX: J10.1 Influenza due to other identified influenza virus with other respiratory manifestations (principal); N18.6 End stage renal disease; L03.116 Cellulitis of left lower limb; N39.0 Urinary tract infection, site not specified; I13.11 Hypertensive heart and chronic kidney disease without heart failure, with stage 5 chronic kidney disease, or end stage renal disease; I48.92 Unspecified atrial flutter; L89.620 Pressure ulcer of left heel, unstageable; L89.302 Pressure ulcer of unspecified buttock, stage 2; B95.62 Methicillin resistant Staphylococcus aureus infection as the cause of diseases classified elsewhere; B96.20 Unspecified Escherichia coli [E. coli] as the cause of diseases classified elsewhere; I48.0 Paroxysmal atrial fibrillation; D63.1 Anemia in chronic kidney disease; E11.22 Type 2 diabetes mellitus with diabetic chronic kidney disease; E11.621 Type 2 diabetes mellitus with foot ulcer; E78.5 Hyperlipidemia, unspecified; Z51.81 Encounter for therapeutic drug level monitoring; Z79.899 Other long term (current) drug therapy; Z79.01 Long term (current) use of anticoagulants; Z79.84 Long term (current) use of oral hypoglycemic drugs; Z79.82 Long term (current) use of aspirin; Z99.2 Dependence on renal dialysis; Z83.3 Family history of diabetes mellitus; Z80.0 Family history of malignant neoplasm of digestive organs